=== PATIENT | male | born 1965 | race Caucasian/White ===

== ENCOUNTER → 2016-12-11 | Outpatient (CLI) | payer BC ==
[~2016-12-11] MED LIST: REGADENOSON 0.4 MG/5 ML SYRINGE IV ONE
--- NOTE | 2016-12-11 10:50 | EST ---
DATE OF SERVICE: 12/11/2016 AGE: 51Y SEX: M HT: 67" WT: 165 lbs. Protocol Freeman: Other: Lexiscan Cardiolite Stage: Dur. of Exercise: *Heart Rate Blood Pressure *Rest: 59 Rest: 110/83 * *Max. Achieved: 101 Maximum BP: 138/85 85% PMHR: 145 100% PMHR: 170 *METS: INDICATION OF THE STUDY: Chest pain. MEDICATIONS: Lopressor. STRESS DATA: Pretesting physical examination showed heart rate of 59, pressure is 110/83 mmHg. Baseline EKG shows sinus rhythm. 0.4 mg of Lexiscan was given to the patient over 15 seconds per protocol. The max heart rate was 101 beats per minute and maximum pressure was 138/85 mmHg. Clinically, the patient developed chest discomfort and shortness of breath. The EKG showed about a 0.[address] segment depression. CONCLUSION: 1. Nondiagnostic electrocardiogram stress test in response to Lexiscan. 2. Please follow up on the Cardiolite portion on a separate report from the radiology department.
--- NOTE | 2016-12-11 12:51 | NM ---
EXAMINATION TYPE: NM stress lexiscan cardiolite DATE OF EXAM: 12/11/2016 COMPARISON: NONE HISTORY: Shortness of breath and chest pain TECHNIQUE: After the intravenous administration of 10.19 mCi Tc 99m Sestamibi - Cardiolite resting S PECT images acquired 35 minutes post injection. The patient received 0.4mg Lexiscan, 27.3 mCi Tc 99m Sestamibi - Stress images obtained [address] injection FINDINGS: Review of stress and rest SPECT images demonstrates anterior and apical perfusion abnormality on stre ss images which shows more normal uptake on rest images. Gated analysis shows normal wall motion wit h an estimated left ventricular ejection fraction of 53 %. IMPRESSION: Pharmacologically induced left ventricular myocardial ischemia as described.
== END | disposition home or self-care (01) ==
LOC: RADNMMAIN 08:39
PROVIDERS: ATTEND Family Medicine
DX: I25.9 Chronic ischemic heart disease, unspecified (principal)
CPT/HCPCS: 93017; 78452; A9500; J2785

== ENCOUNTER 2016-12-13 12:02 | Inpatient (IN) | payer BC ==
[2016-12-13] MEDS ORDERED: NITROGLYCERIN OINT 1 INCH/GM PACKET TOPICAL STA (12:36)
[2016-12-13] MEDS ORDERED: HEPARIN SODIUM,PORCINE 5,000 UNIT/ML 1 ML VIAL IV ONE (12:39)
--- NOTE | 2016-12-13 12:39 | ED ---
General Adult HPI - General Chief complaint: Chest Pain Stated complaint: Arm Numbness Time Seen by Provider: 12/13/16 12:10 Source: patient, RN notes reviewed Mode of arrival: ambulatory Limitations: no limitations - History of Present Illness Initial comments: This is a 51-year-old male who comes in with past medical history significant for smoking and high cholesterol. Patient also states he has a strong family history of heart disease. Patient states he had a recent stress test for which she was positive and was told he had any more chest pain or problems to come to the emergency room to medially. Patient states today he started having some chest discomfort on the left side and pain radiating down his left arm. Patient denies any increasing shortness of breath. Patient states that he has had no diaphoresis or nausea. Patient denies any abdominal pain patient denies nausea vomiting diarrhea. Patient denies any recent fever chills or cough. Patient denies any lightheadedness dizziness or syncopal episode. - Related Data Home Medications Medication Instructions Recorded Confirmed Losartan Potassium [Losartan 100 mg PO DAILY 12/13/16 12/13/16 Potassium] Allergies Allergy/AdvReac Type Severity Reaction Status Date / Time No Known Allergies Allergy Verified 12/13/16 12:10 Review of Systems ROS Statement: Those systems with pertinent positive or pertinent negative responses have been documented in the HPI. ROS Other: All systems not noted in ROS Statement are negative. Past Medical History Past Medical History: Hyperlipidemia, Hypertension History of Any Multi-Drug Resistant Organisms: None Reported Past Surgical History: Hernia Repair Additional Past Surgical History / Comment(s): right thum fx reduction Past Psychological History: No Psychological Hx Reported Smoking Status: Current every day smoker Past Alcohol Use History: Rare Past Drug Use History: None Reported General Exam - General Exam Comments Initial Comments: GENERAL: Patient is well-developed and well-nourished. Patient is nontoxic and well- hydrated and is in mild distress. ENT: Neck is soft and supple. No significant lymphadenopathy is noted. Oropharynx is clear. Moist mucous membranes. Neck has full range of motion without eliciting any pain. EYES: The sclera were anicteric and conjunctiva were pink and moist. Extraocular movements were intact and pupils were equal round and reactive to light. Eyelids were unremarkable. PULMONARY: Unlabored respirations. Good breath sounds bilaterally. No audible rales rhonchi or wheezing was noted. CARDIOVASCULAR: There is a regular rate and rhythm without any murmurs gallops or rubs. ABDOMEN: Soft and nontender with normal bowel sounds. No palpable organomegaly was noted. There is no palpable pulsatile mass. SKIN: Skin is clear with no lesions or rashes and otherwise unremarkable. NEUROLOGIC: Patient is alert and oriented x3. Cranial nerves II through XII are grossly intact. Motor and sensory are also intact. Normal speech, volume and content. Symmetrical smile. MUSCULOSKELETAL: Normal extremities with adequate strength and full range of motion. No lower extremity swelling or edema. No calf tenderness. LYMPHATICS: No significant lymphadenopathy is noted PSYCHIATRIC: Normal psychiatric evaluation. Normal interpersonal interactions appears functionally intact in deals appropriately with others. No signs of depression. No signs of anxiety. Limitations: no limitations Course Vital Signs 12/13/16 12/13/16 12/13/16 12:06 13:03 13:46 Temperature 97.7 F Pulse Rate 81 72 78 Respiratory 18 16 16 Rate Blood Pressure 192/106 149/94 151/85 O2 Sat by Pulse 97 98 98 Oximetry Medical Decision Making - Medical Decision Making EKG shows normal sinus rhythm at 75 bpm MT interval is 142 QRS is 104 QT interval 388 QTC is 433. Recent EKG shows no ST segment elevation or depression or T-wave abdomen is noted. Patient had a positive stress test I started the patient on heparin about the patient for unstable angina. Spoke with Dr. Giraldo he agreed to admit the patient wrote admitting orders and consult cardiology and continue to have a Nitropaste and aspirin on the floor. - Lab Data Result diagrams: 12/13/16 13:00 12/13/16 13:00 Lab Results 12/13/16 12/13/16 12/13/16 Range/Units 13:00 13:00 13:00 WBC 7.4 (3.8-10.6) k/uL RBC 5.04 (4.30-5.90) m/uL Hgb 15.4 (13.0-17.5) gm/dL Hct 44.2 (39.0-53.0) % MCV 87.7 (80.0-100.0) fL MCH 30.6 (25.0-35.0) pg MCHC 34.9 (31.0-37.0) g/dL RDW 12.7 (11.5-15.5) % Plt Count 308 (150-450) k/uL Neutrophils % 60 % Lymphocytes % 30 % Monocytes % 5 % Eosinophils % 2 % Basophils % 0 % Neutrophils # 4.4 (1.3-7.7) k/uL Lymphocytes # 2.2 (1.0-4.8) k/uL Monocytes # 0.4 (0-1.0) k/uL Eosinophils # 0.2 (0-0.7) k/uL Basophils # 0.0 (0-0.2) k/uL PT (9.0-12.0) sec INR (<1.1) APTT (22.0-30.0) sec Sodium 139 (137-145) mmol/L Potassium 4.2 (3.5-5.1) mmol/L Chloride 106 (98-107) mmol/L Carbon Dioxide 26 (22-30) mmol/L Anion Gap 7 mmol/L BUN 12 (9-20) mg/dL Creatinine 0.74 (0.66-1.25) mg/dL Est GFR (MDRD) Af Amer >60 (>60 ml/min/1.73 sqM) Est GFR (MDRD) Non-Af >60 (>60 ml/min/1.73 sqM) Glucose 87 (74-99) mg/dL Calcium 9.4 (8.4-10.2) mg/dL Magnesium 2.2 (1.6-2.3) mg/dL Total Bilirubin 0.5 (0.2-1.3) mg/dL AST 23 (17-59) U/L ALT 30 (21-72) U/L Alkaline Phosphatase 87 (38-126) U/L Total Creatine Kinase 51 L (55-170) U/L CK-MB (CK-2) 0.3 (0.0-2.4) ng/mL CK-MB (CK-2) Rel Index 0.6 Troponin I <0.012 (0.000-0.034) ng/mL Total Protein 7.0 (6.3-8.2) g/dL Albumin 4.2 (3.5-5.0) g/dL 12/13/16 Range/Units 13:00 WBC (3.8-10.6) k/uL RBC (4.30-5.90) m/uL Hgb (13.0-17.5) gm/dL Hct (39.0-53.0) % MCV (80.0-100.0) fL MCH (25.0-35.0) pg MCHC (31.0-37.0) g/dL RDW (11.5-15.5) % Plt Count (150-450) k/uL Neutrophils % % Lymphocytes % % Monocytes % % Eosinophils % % Basophils % % Neutrophils # (1.3-7.7) k/uL Lymphocytes # (1.0-4.8) k/uL Monocytes # (0-1.0) k/uL Eosinophils # (0-0.7) k/uL Basophils # (0-0.2) k/uL PT 10.2 (9.0-12.0) sec INR 1.0 (<1.1) APTT 27.6 (22.0-30.0) sec Sodium (137-145) mmol/L Potassium (3.5-5.1) mmol/L Chloride (98-107) mmol/L Carbon Dioxide (22-30) mmol/L Anion Gap mmol/L BUN (9-20) mg/dL Creatinine (0.66-1.25) mg/dL Est GFR (MDRD) Af Amer (>60 ml/min/1.73 sqM) Est GFR (MDRD) Non-Af (>60 ml/min/1.73 sqM) Glucose (74-99) mg/dL Calcium (8.4-10.2) mg/dL Magnesium (1.6-2.3) mg/dL Total Bilirubin (0.2-1.3) mg/dL AST (17-59) U/L ALT (21-72) U/L Alkaline Phosphatase (38-126) U/L Total Creatine Kinase (55-170) U/L CK-MB (CK-2) (0.0-2.4) ng/mL CK-MB (CK-2) Rel Index Troponin I (0.000-0.034) ng/mL Total Protein (6.3-8.2) g/dL Albumin (3.5-5.0) g/dL Critical Care Time Critical Care Time: Yes Total Critical Care Time: 35 Disposition Clinical Impression: Unstable angina pectoris Disposition: ADMITTED IP TO THIS HOSP Referrals: Wesley Rivero DO [Primary Care Provider] - 1-2 days Time of Disposition: 15:03
[2016-12-13] MEDS: ASPIRIN 81 MG CHEW PO STA ×2 (12:53→12:55)
[2016-12-13] MEDS: HEPARIN SODIUM,PORCINE/D5W PMX 25,000 UNIT in DEXTROSE/WATER 1 500ML.BAG IV SCH (13:01)
--- NOTE | 2016-12-13 13:22 | XR ---
EXAMINATION TYPE: XR chest 2V DATE OF EXAM: 12/13/2016 COMPARISON: 04/03/14 HISTORY: Chest pain TECHNIQUE: Frontal and lateral views of the chest are obtained. FINDINGS: There is no focal air space opacity. No evidence for pnuemothorax.No pleural effusion. The cardiac silhouette size is within normal limits. The osseous structures are grossly intact. IMPRESSION: 1. No acute cardiopulmonary process.
[2016-12-13 13:28] LABS: Basophils % (A) 0 %; CH 31.3; CHCM 35.8; Eosinophils # (A) 0.2 k/uL (0-0.7); Eosinophils % (A) 2 %; HCT 44.2 % (39.0-53.0); HDW 2.57; HGB 15.4 gm/dL (13.0-17.5); Luc # (Auto) 0.27; Luc % (Auto) 4; Lymphocytes # (A) 2.2 k/uL (1.0-4.8); Lymphocytes % (A) 30 %; MCH 30.6 pg (25.0-35.0); MCHC 34.9 g/dL (31.0-37.0); MCV 87.7 fL (80.0-100.0); Monocytes # (A) 0.4 k/uL (0-1.0); Monocytes % (A) 5 %; Neutrophils # (A) 4.4 k/uL (1.3-7.7); Neutrophils % (A) 60 %; RBC 5.04 m/uL (4.30-5.90); RDW 12.7 % (11.5-15.5); WBC 7.4 k/uL (3.8-10.6); WBC (Perox) 7.93
[2016-12-13 13:29] LABS: ALT 30 U/L (21-72); AST 23 U/L (17-59); Alkaline Phosphatase 87 U/L (38-126); Anion Gap 7 mmol/L; Blood Urea Nitrogen 12 mg/dL (9-20); Calcium 9.4 mg/dL (8.4-10.2); Carbon Dioxide 26 mmol/L (22-30); Chloride 106 mmol/L (98-107); Glucose 87 mg/dL (74-99); Magnesium 2.2 mg/dL (1.6-2.3); Non-African American GFR(MDRD) >60 (>60 ml/min/1.73 sqM); Potassium 4.2 mmol/L (3.5-5.1); Sodium 139 mmol/L (137-145); Total Bilirubin 0.5 mg/dL (0.2-1.3)
[2016-12-13 13:31] LABS: Partial Thromboplastin Time 27.6 sec (22.0-30.0); Prothrombin Time 10.2 sec (9.0-12.0)
[2016-12-13 13:46] LABS: Creatine Kinase 51 U/L (55-170)
[2016-12-13 13:58] LABS: Creatine Kinase MB 0.3 ng/mL (0.0-2.4); Troponin I <0.012 ng/mL (0.000-0.034)
[2016-12-13] MEDS ORDERED: NITROGLYCERIN SL TABS 0.4 MG TAB SUBLINGUAL PRN (15:04)
[2016-12-13] MEDS ORDERED: ATORVASTATIN 40 MG TAB PO SCH (17:30)
[2016-12-13] MEDS: NITROGLYCERIN OINT 1 INCH/GM PACKET TOPICAL SCH (18:16)
[2016-12-13] MEDS ORDERED: ACETAMINOPHEN TAB 325 MG TAB PO PRN (19:39)
[2016-12-13 20:12] LABS: Creatine Kinase 40 U/L (55-170)
[2016-12-13 20:24] LABS: Creatine Kinase MB 0.2 ng/mL (0.0-2.4); Troponin I <0.012 ng/mL (0.000-0.034)
--- NOTE | 2016-12-13 22:37 | HP ---
DATE OF ADMISSION: 12/13/2016 REASON FOR ADMISSION: Chest pain. 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 Rivero who requested a stress test, which was done 12/11/2016. Patient was noted to have an anterior reversible ischemia on the nuclear part of the stress test. Patient was recommended to follow up with a track leader within a week; however, was told that if patient has recurrent complaining of chest pain to come into the emergency room. Patient apparently was walking, and noted to have midsternal chest pain radiating to his left arm, dull which was relieved on resting. Denied having any additional aggravating factors, including deep breathing or coughing. EKG in the emergency room did not reveal ST-T wave changes. Initial troponin was negative. The patient at the time of my evaluation, it is symptom-free. Denies having any headaches, blurry vision, nausea, vomiting, diarrhea, or urinary urgency or frequency. Fourteen-point review of systems was done; none pertinent other than was mentioned above. FAMILY HISTORY: Significant for cardiac disease before the age of 60. States that his mother of sudden cardiac disease at the age of 55. A past medical history includes hypertension and dyslipidemia. PAST SURGICAL HISTORY: Hernia repair. SOCIAL HISTORY: One pack ongoing tobacco use. Denies illicit drug use or significant alcohol use. PHYSICAL EXAMINATION: Vitals include temperature 97.7, heart rate 81, respiratory rate 18, blood pressure is between 149 to 192 systolic over 85 to 106 diastolic, saturating 96% on room air. GENERALLY: Patient appears to be alert, oriented x3. HEENT: The pupils are equal and reactive to light and accommodation. HEART: S1, S2 present. No murmur appreciated. LUNGS: Good air entry. No wheezing or rhonchi noted. ABDOMINAL EXAM: Soft, nontender, no organomegaly appreciated. GENITOURINARY: No Rincon in place. EXTREMITIES: Pulses can be palpated distally. Denies any tenderness on gross palpation. SKIN: On a gross skin exam does not appear to have any purpura or any skin rashes that were noted. NEUROLOGICALLY: Grossly cranial nerves 2-12 intact. No motor or sensory deficits noted. Laboratory data include hemoglobin 15.4, hematocrit 44.2, white count of 7.4, platelets of 308. Sodium 139, potassium 4.2, chloride 106, bicarb 26, BUN 12, creatinine 0.74. ASSESSMENT AND PLAN: 1. Chest pain, which appears to be reproducible on have some typical symptoms but the recent positive stress test. 2. Ongoing tobacco use. 3. Hypertension. 4. Dyslipidemia. Plan: Continue with heparin therapy per ACS protocol. Patient will be started on atorvastatin 40 mg. We will obtain a lipid panel tomorrow in the morning. We will have our track leader evaluate the patient. We will keep the patient n.p.o. for potential cardiac cath. This was discussed with the patient. Continue nitroglycerin p.r.n. Losartan will be restarted. Will follow.
[2016-12-14 01:26] LABS: Creatine Kinase 40 U/L (55-170)
[2016-12-14 01:39] LABS: Creatine Kinase MB 0.2 ng/mL (0.0-2.4); Troponin I <0.012 ng/mL (0.000-0.034)
[2016-12-14] MEDS: NITROGLYCERIN OINT 1 INCH/GM PACKET TOPICAL SCH ×2 (05:07→14:30)
[2016-12-14 06:07] LABS: Cholesterol 199 mg/dL (<200); HDL Cholesterol 33 mg/dL (40-60); Triglycerides 216 mg/dL (<150)
[2016-12-14] MEDS ORDERED: ALPRAZolam 0.25 MG TAB PO PRN (08:18)
[2016-12-14] MEDS ORDERED: ALPRAZolam 0.5 MG TAB PO PRN (08:18)
[2016-12-14] MEDS ORDERED: NITROGLYCERIN SL TABS 0.4 MG TAB SUBLINGUAL PRN ×2 (08:18→13:07)
[2016-12-14] MEDS ORDERED: ATORVASTATIN 80 MG TAB PO STA (08:18)
[2016-12-14] MEDS ORDERED: SODIUM CHLORIDE 0.9% 1,000 ML in EMPTY BAG 1 BAG IV ONE (08:18)
[2016-12-14] MEDS ORDERED: ASPIRIN 325 MG TAB PO STA (08:22)
[2016-12-14] MEDS ORDERED: ASPIRIN 325 MG TAB PO SCH (09:00)
--- NOTE | 2016-12-14 09:09 | CONS ---
DATE OF CONSULTATION: CHIEF COMPLAINT: Chest pain with abnormal stress test. This is a 51-year-old gentleman with history of hypertension, who presented to his primary care physician with symptoms of shortness of breath is primarily exertional in origin without paroxysmal nocturnal dyspnea or orthopnea or leg edema. He underwent a stress test that showed ischemia in LAD distribution on December 11. Yesterday he developed chest discomfort, but mostly left arm pain that was a sensation associated shortness of breath and some diaphoresis. He was concerned, came to the ER and got admitted. His EKG shows sinus rhythm and nonspecific ST-T wave changes. Three sets of cardiac enzymes have been negative. At the time of my evaluation, he is pain free and hemodynamically stable. Past medical history is significant for hypertension. Current medications include losartan 100 daily.. ALLERGIES: No known drug allergies. FAMILY HISTORY: Negative for premature coronary artery disease. Social history is significant for smoking. There is no history of ETOH abuse, or drug abuse. REVIEW OF SYSTEMS: HEENT: Unremarkable. CARDIAC: As described above. RESPIRATORY: Negative. GI: Negative. GENITOURINARY: Negative. Allergy/immunology: Negative. SKIN: Negative. MUSCULOSKELETAL: Negative. ENDOCRINE: Negative. HEMATOLOGICAL: Negative. DERMATOLOGICAL: Negative. CONSTITUTIONAL: Negative. Oncological: Negative. The rest of the system review is not relevant. FAMILY HISTORY: Significant for premature coronary artery disease. On exam, patient is comfortable at rest. Vital signs are stable. There is no jugular venous distention. Chest exam reveals good air entry bilaterally. Heart exam reveals first and second heart sounds. No gallop. No murmur, no rub. ABDOMEN: Soft, nontender. Exam of the extremities did not reveal edema. Peripheral pulses are felt. Labs show that the creatinine is normal. Three sets of tropes are negative. Hemoglobin is 15.4, platelet count is 308. ASSESSMENT: Unstable angina in a patient with known multiple coronary risk factors including hypertension smoking and strong family history of coronary artery disease with a recent abnormal stress test showing ischemia in LAD distribution. PLAN: I advised the patient to undergo cardiac catheterization to rule out significant obstructive disease and if there is a lesion, he will undergo angioplasty. If not, he will be discharged home and work aggressively on risk factor modification and in particular smoking cessation.
[2016-12-14] MEDS ORDERED: MIDAZOLAM 2 MG/2 ML VIAL ONE (11:27)
[2016-12-14] MEDS: MIDAZOLAM 2 MG/2 ML VIAL IVP ONE ×2 (11:34→12:16)
[2016-12-14] MEDS ORDERED: SODIUM CHLORIDE 0.9% 1,000 ML IV ONE (11:35)
[2016-12-14] MEDS ORDERED: LIDOCAINE 2% INJ 20 MG/ML SQ ONE (11:39)
[2016-12-14] MEDS ORDERED: HYDROmorphone 2 MG/ML 1 ML SYRINGE ONE (12:03)
[2016-12-14] MEDS ORDERED: BIVALIRUDIN BOLUS 250 MG/50 ML IV ONE (12:13)
[2016-12-14] MEDS ORDERED: BIVALIRUDIN 250 MG in SODIUM CHLORIDE 0.9% 50 ML IV ONE (12:14)
[2016-12-14] MEDS ORDERED: NITROGLYCERIN SL TABS 0.4 MG TAB SUBLINGUAL ONE ×2 (12:18→12:19)
--- NOTE | 2016-12-14 12:30 | CC ---
DATE OF SERVICE: INDICATION: Unstable angina. PROCEDURE NOTE: After obtaining informed consent, left heart catheterization and coronary angiogram are performed via the right femoral artery using standard Ora catheters. Patient tolerated the procedure well without any obvious immediate complications. We had to use a Glidewire to pass catheters across the iliac vessels because of extreme tortuosity. Total sedation time was 22 minutes. FINDINGS: 1. HEMODYNAMICS: Left ventricular end-diastolic pressure is 14 mm. There is no significant gradient across the aortic valve. 2. LEFT VENTRICULOGRAM: Left ventriculogram is not performed. 3. ANGIOGRAPHIC DATA: LEFT MAIN CORONARY ARTERY: Left main coronary artery is a normal size vessel and is free of stenosis. It divides into left anterior descending coronary artery and circumflex coronary artery. LAD shows a focal area of 95% stenosis in mid-LAD right at the origin of a small-caliber diagonal branch. Circumflex coronary artery shows a mild atherosclerotic plaque around 40% stenosis. Right coronary artery is a large dominant vessel that is very tortuous and in its midportion, has a focal area of 95% stenosis. CONCLUSION: Severe 2-vessel coronary artery disease as described above. PLAN: Patient will undergo angioplasty of LAD today and will bring him back and do angioplasty of right coronary artery probably on Friday.
[2016-12-14] MEDS ORDERED: HYDROmorphone 2 MG/ML 1 ML SYRINGE IVP ONE (12:33)
[2016-12-14] MEDS ORDERED: NITROGLYCERIN 1000MCG/10ML SYRINGE INTRACORON ONE (12:35)
--- NOTE | 2016-12-14 12:38 | ECHOF ---
Referral Reason:chest pain MEASUREMENTS -------- HEIGHT: 170.2 cm WEIGHT: 77.6 kg BP: 130/40 RVIDd: 2.8 cm (< 3.3) IVSd: 1.1 cm (0.6 - 1.1) LVIDd: 4.4 cm (3.9 - 5.3) LVPWd: 1.1 cm (0.6 - 1.1) IVSs: 1.5 cm LVIDs: 3.2 cm LVPWs: 1.4 cm LA Diam: 2.9 cm (2.7 - 3.8) Ao Diam: 2.9 cm (2.0 - 3.7) AV Cusp: 2.0 cm (1.5 - 2.6) LA Diam: 3.3 cm (2.7 - 3.8) MV EXCURSION: 19.089 mm (> 18.000) MV EF SLOPE: 62 mm/s (70 - 150) EPSS: 0.8 cm MV E Melvin: 0.60 m/s MV DecT: 231 ms MV A Melvin: 0.78 m/s MV E/A Ratio: 0.77 RAP: 5.00 mmHg RVSP: 12.99 mmHg FINDINGS -------- Sinus rhythm. This was a technically adequate study. LV size, wall thickness and systolic function are normal, with an EF greater than 55%. The right ventricle is normal in size. The left atrial size is normal. The right atrial size is normal. There is mild aortic valve sclerosis. There is no evidence of aortic regurgitation. Mild mitral annular calcification present. Mild mitral regurgitation is present. Mild tricuspid regurgitation present. There is no evidence of pulmonary hypertension. The right ventricular systolic pressure, as measured by Doppler, is 12.99mmHg. There is no pulmonic regurgitation present. The aortic root size is normal. There is no pericardial effusion. CONCLUSIONS -------- 1. LV size, wall thickness and systolic function are normal, with an EF greater than 55%. 2. There is mild aortic valve sclerosis. 3. Mild mitral annular calcification present. 4. Mild mitral regurgitation is present. 5. Mild tricuspid regurgitation present. 6. There is no evidence of pulmonary hypertension. 7. The right ventricular systolic pressure, as measured by Doppler, is 12.99mmHg. FORENSIC TOXICOLOGIST: Kristy Colmenares [facility]
[2016-12-14] MEDS ORDERED: niCARdipine 25 MG/10 ML VIAL ONE (12:40)
[2016-12-14] MEDS ORDERED: niCARdipine Syringe (1,000 mcg/10 mL) INTRAARTER ONE (12:43)
[2016-12-14] MEDS ORDERED: LIDOCAINE 2% INJ 20 MG/ML (20 ML MDV) ONE (12:47)
[2016-12-14] MEDS ORDERED: PRASUGREL 10 MG TAB ONE (12:49)
[2016-12-14] MEDS ORDERED: PRASUGREL 10 MG TAB PO ONE (12:51)
[2016-12-14] MEDS ORDERED: IOHEXOL 350 MG/ML 100 ML BOTTLE INJ ONE (12:52)
[2016-12-14] MEDS ORDERED: ZOLPIDEM 5 MG TAB PO PRN (13:07)
[2016-12-14] MEDS ORDERED: ATROPINE SULFATE 0.1 MG/ML 10ML SYRINGE IV PRN (13:07)
[2016-12-14] MEDS ORDERED: MAG HYDROX/AL HYDROX/SIMETH 30 ML CUP PO PRN (13:07)
[2016-12-14] MEDS ORDERED: RX INFO: IV CONTRAST WAS GIVEN 1 EACH MISC MISCELLANE PRN (13:07)
[2016-12-14] MEDS: LOSARTAN 50 MG TAB PO SCH (14:29)
[2016-12-14] MEDS: HEPARIN SODIUM,PORCINE/D5W PMX 25,000 UNIT in DEXTROSE/WATER 1 500ML.BAG IV SCH (14:30)
[2016-12-14] MEDS: METOPROLOL TARTRATE 25 MG TAB PO SCH (17:41)
[2016-12-14] MEDS: SODIUM CHLORIDE 0.9% 1,000 ML IV SCH (17:41)
--- NOTE | 2016-12-14 18:19 | P.PN ---
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 Rivero who requested a stress test, which was done 12/11/2016. Patient was noted to have an anterior reversible ischemia on the nuclear part of the stress test. Patient was recommended to follow up with a continuous mining machine lode miner within a week; however, was told that if patient has recurrent complaining of chest pain to come into the emergency room. Patient apparently was walking, and noted to have midsternal chest pain radiating to his left arm, dull which was relieved on resting. Denied having any additional aggravating factors, including deep breathing or coughing. EKG in the emergency room did not reveal ST-T wave changes. Initial troponin was negative. The patient at the time of my evaluation, it is symptom-free. 12/14/16 underwent cardiac cath currently symptom free Intervention to the LAD Denies having any headaches, blurry vision, nausea, vomiting, diarrhea, or urinary urgency or frequency. Fourteen-point review of systems was done; none pertinent other than was mentioned above. PHYSICAL EXAMINATION: Vitals include temperature 97.7, heart rate 81, respiratory rate 18, blood pressure is between 149 to 192 systolic over 85 to 106 diastolic, saturating 96% on room air. GENERALLY: Patient appears to be alert, oriented x3. HEENT: The pupils are equal and reactive to light and accommodation. HEART: S1, S2 present. No murmur appreciated. LUNGS: Good air entry. No wheezing or rhonchi noted. ABDOMINAL EXAM: Soft, nontender, no organomegaly appreciated. GENITOURINARY: No Rincon in place. EXTREMITIES: Pulses can be palpated distally. Denies any tenderness on gross palpation. SKIN: On a gross skin exam does not appear to have any purpura or any skin rashes that were noted. NEUROLOGICALLY: Grossly cranial nerves 2-12 intact. No motor or sensory deficits noted. Groin appropriately tender to palpation. Objective - Vital Signs Vital signs: Vital Signs Temp 98.3 F 12/14/16 08:00 Pulse 61 12/14/16 14:15 Resp 18 12/14/16 08:00 BP 114/79 12/14/16 14:15 Pulse Ox 96 12/14/16 14:15 Intake & Output 12/13/16 12/14/16 12/14/16 18:59 06:59 18:59 Intake Total 340.567 770.02 Output Total 450 0 Balance -450 340.567 770.02 Weight 77.7 kg Intake: IV 533.02 Intake, IV Titration 340.567 Amount Heparin Sodium,Porcine/ 340.567 D5w Pmx 25,000 unit In Dextrose/Water 1 500ml. bag @ 12 UNITS/KG/HR 17. 96 mls/hr IV .Q24H [facility] Rx #:[id number] Oral 237 Output: Urine 450 0 Other: Voiding Method Toilet # Voids 1 - Labs CBC & Chem 7: 12/13/16 13:00 12/13/16 13:00 Labs: Abnormal Lab Results - Last 24 Hours (Table) 12/13/16 12/14/16 12/14/16 Range/Units 19:33 00:12 05:19 APTT (22.0-30.0) sec Total Creatine Kinase 40 L 40 L (55-170) U/L Triglycerides 216 H (<150) mg/dL LDL Cholesterol, Calc 123 H (0-99) mg/dL HDL Cholesterol 33 L (40-60) mg/dL 12/14/16 Range/Units 05:19 APTT 36.2 H (22.0-30.0) sec Total Creatine Kinase (55-170) U/L Triglycerides (<150) mg/dL LDL Cholesterol, Calc (0-99) mg/dL HDL Cholesterol (40-60) mg/dL Assessment and Plan Plan: ASSESSMENT AND PLAN: 1. CAD s/[ PTCA to the LAD, planned staged intervention to the RCA in 3 weeks 2. Ongoing tobacco use. 3. Hypertension. 4. Dyslipidemia. Plan: Dual antiplatelet therapy Telemetry monitering Statin Vitals stable moniter overnight vascular checks
--- NOTE | 2016-12-14 23:15 | PTCA ---
DATE OF SERVICE: 12/14/2016. PROCEDURE: PTCA and stenting of a complex calcified proximal left anterior descending coronary artery. Performed by Dr. Monisha Dowell. Clinical information: Mr. Alvarez is a 51-year-old gentleman with a very strong family history of premature CAD, smoking and probable hyperlipidemia. He had a positive stress test and was evaluated by Dr. Blood who perform coronary angiography that revealed a 95% proximal LAD stenosis at a very acute angle heavily calcified involving a diagonal branch that was also highly diseased. Beyond this, the LAD had a mid lesion of about 40% to 50% with somewhat sluggish flow. RCA was a very dominant vessel, extremely tortuous and there was another 80% stenosis located in the midportion after several 90 degree bends. His circumflex had mild disease of about 50% or so mild to moderate 50% disease. He was advised intervention of the proximal LAD and a staged intervention of the RCA. Risks, benefits, options and rationale were explained. PROCEDURE NOTE: The existing 6 [place] introducer in the right femoral artery was used to perform the procedure. I used a standard left Ora guide catheter to cannulate the left coronary artery. 3.5 would have probably been a more suitable catheter. However, I used a BMW wire to cross the lesion. Predilatation was performed using an 8 mm long, 2.5 caliber Trek balloon. Two inflations were given. Subsequently I used a 2.75 caliber, 12 mm long, Promus drug-eluting stent and deployed this at 12 atmospheres. Patient had an excellent angiographic result. He had chest pain without significant EKG changes. He received Angiomax bolus and infusion as per protocol. He received 60 mg of Effient. The sheath was then taken out and a Perclose device used to secure hemostasis and he was sent to the room in stable condition. Excellent angiographic result without complication was achieved. Results were discussed with the patient and family. The patient received moderate conscious sedation for a total duration of one hour. He was given Dilaudid and Versed and Benadryl. Oxygen saturation was monitored closely.
--- NOTE | 2016-12-14 23:17 | LTR ---
December 14, 2016 RE: Kim Elpidio Dear Mr. Rivero: Thank you for the opportunity to participate in the care of Mr. Elpidio Alvarez. This gentleman presented with unstable angina, had a positive stress test. Cardiac cath by Dr. Blood revealed significant lesions in the proximal LAD and mid RCA. After some deliberation, discussing, options of revascularization both surgical and percutaneous, we proceeded with a PCI of proximal LAD. Excellent angiographic result was achieved and I will bring him back in 3 to 4 weeks for a staged intervention of the mid RCA. Right coronary artery is a more complex lesion extremely tortuous vessel with a several 90 degree angulations. Prognosis remains guarded. The patient has been counseled regarding the need to quit smoking and I also advised him regarding the goal of keeping LDL cholesterol under 70. Strict risk factor modification issues were discussed. Thank you for your referral. Please call for questions. With kind personal regards, Sincerely, DIANN MCBRIDE MD
[2016-12-15 04:39] VITALS: RESP 16
[2016-12-15] MEDS: SODIUM CHLORIDE 0.9% 1,000 ML IV SCH (04:39)
[2016-12-15 06:10] LABS: Basophils % (A) 0 %; CH 31.1; CHCM 34.3; Eosinophils # (A) 0.2 k/uL (0-0.7); Eosinophils % (A) 2 %; HCT 43.6 % (39.0-53.0); HDW 2.44; HGB 14.6 gm/dL (13.0-17.5); Luc # (Auto) 0.24; Luc % (Auto) 3; Lymphocytes % (A) 22 %; MCH 30.4 pg (25.0-35.0); MCHC 33.4 g/dL (31.0-37.0); Mean Platelet Volume 6.2; Monocytes # (A) 0.5 k/uL (0-1.0); Monocytes % (A) 6 %; Neutrophils # (A) 6.2 k/uL (1.3-7.7); Neutrophils % (A) 68 %; RBC 4.79 m/uL (4.30-5.90); RDW 12.9 % (11.5-15.5); WBC 9.2 k/uL (3.8-10.6); WBC (Perox) 9.98
[2016-12-15 06:21] LABS: Anion Gap 7 mmol/L; Blood Urea Nitrogen 11 mg/dL (9-20); Calcium 9.6 mg/dL (8.4-10.2); Carbon Dioxide 26 mmol/L (22-30); Chloride 107 mmol/L (98-107); Glucose 90 mg/dL (74-99); Non-African American GFR(MDRD) >60 (>60 ml/min/1.73 sqM); Potassium 4.1 mmol/L (3.5-5.1); Sodium 140 mmol/L (137-145)
[2016-12-15] MEDS: METOPROLOL TARTRATE 25 MG TAB PO SCH (08:32)
[2016-12-15] MEDS: LOSARTAN 50 MG TAB PO SCH (08:32)
[2016-12-15 08:36] VITALS: TEMP 97
[2016-12-15] MEDS ORDERED: ASPIRIN 81 MG CHEW PO SCH (09:00)
--- NOTE | 2016-12-15 10:40 | PN ---
Elpidio is a 51-year-old gentleman who is admitted to hospital with unstable angina and underwent cardiac catheterization and angioplasty of LAD. He has a lesion in the right coronary artery also. This is going to be tackled as outpatient. He is doing well and is free of symptoms this morning, ambulating, free of pain. Currently on: 1. Cozaar 100 mg daily. 2. Lopressor 25 mg daily. 3. Sublingual nitroglycerin on a p.r.n. basis. 4. Effient 10 mg daily. 5. Aspirin. 6. Lipitor 80 mg daily. On exam, comfortable at rest. Vital signs are stable. There is no jugular venous distention. Carotid upstroke is normal. There is no bruit. Chest exam reveals good air entry bilaterally. Heart exam reveals first and second heart sounds. No gallop. ABDOMEN: Soft. Exam of the extremities did not reveal any edema. Peripheral pulses are felt. Groin is free of bleeding, ( ) hematoma. Foot pulses are intact. ASSESSMENT: Unstable angina, status post catheterization and angioplasty of left anterior descending coronary artery, the lesion in the right coronary artery will be addressed down the road.
[2016-12-15] MEDS ORDERED: PRASUGREL 10 MG TAB PO SCH (12:00)
[2016-12-15 13:58] VITALS: BP 130/78; PULSE 56
--- NOTE | 2016-12-15 18:03 | P.DS ---
Providers Date of admission: 12/14/16 13:07 Attending physician: Quincy Corona MD Consults: 12/13/16 15:04 Consult Physician Urgent Consulting Provider: Cardiology Evelina Consult Reason/Comments: Unstable angina Do you want consulting provider notified?: Yes 12/14/16 13:07 Consult Physician Routine Consulting Provider: Cardiology Evelina Consult Reason/Comments: Post Interventional patient Do you want consulting provider notified?: Already Contacted [facility] Course: HISTORY OF PRESENT ILLNESS: This is a 51-year-old gentleman who is 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 Rivero who requested a stress test, which was done 12/11/2016. Patient was noted to have an anterior reversible ischemia on the nuclear part of the stress test. Patient was recommended to follow up with a embedded software developer within a week; however, was told that if patient has recurrent complaining of chest pain to come into the emergency room. Patient apparently was walking, and noted to have midsternal chest pain radiating to his left arm, dull which was relieved on resting. Denied having any additional aggravating factors, including deep breathing or coughing. EKG in the emergency room did not reveal ST-T wave changes. Initial troponin was negative. The patient at the time of my evaluation, it is symptom-free. 12/14/16 underwent cardiac cath currently symptom free Intervention to the LAD Denies having any headaches, blurry vision, nausea, vomiting, diarrhea, or urinary urgency or frequency. Fourteen-point review of systems was done; none pertinent other than was mentioned above. PHYSICAL EXAMINATION: Vitals include temperature 97.7, heart rate 81, respiratory rate 18, blood pressure is between 149 to 192 systolic over 85 to 106 diastolic, saturating 96% on room air. GENERALLY: Patient appears to be alert, oriented x3. HEENT: The pupils are equal and reactive to light and accommodation. HEART: S1, S2 present. No murmur appreciated. LUNGS: Good air entry. No wheezing or rhonchi noted. ABDOMINAL EXAM: Soft, nontender, no organomegaly appreciated. GENITOURINARY: No Rincon in place. EXTREMITIES: Pulses can be palpated distally. Denies any tenderness on gross palpation. SKIN: On a gross skin exam does not appear to have any purpura or any skin rashes that were noted. NEUROLOGICALLY: Grossly cranial nerves 2-12 intact. No motor or sensory deficits noted. Groin appropriately tender to palpation. ASSESSMENT AND PLAN: 1. CAD s/p PTCA to the LAD, planned staged intervention to the RCA in 3 weeks 2. Ongoing tobacco use. 3. Hypertension. 4. Dyslipidemia. Plan: Dual antiplatelet therapy with aspirin and effeint b fernando [facility] dc home activity restrictions discussed Plan - Discharge Summary New Discharge Prescriptions: New Aspirin 81 mg PO DAILY #30 Atorvastatin [Lipitor] 80 mg PO HS #30 tab Metoprolol Tartrate [Lopressor] 25 mg PO DAILY #30 tab Prasugrel [Effient] 10 mg PO DAILY #30 tab Continue Losartan Potassium 100 mg PO DAILY Discharge Medication List Losartan Potassium 100 mg PO DAILY 12/13/16 [History] Aspirin 81 mg PO DAILY #30 12/15/16 [Rx] Atorvastatin [Lipitor] 80 mg PO HS #30 tab 12/15/16 [Rx] Metoprolol Tartrate [Lopressor] 25 mg PO DAILY #30 tab 12/15/16 [Rx] Prasugrel [Effient] 10 mg PO DAILY #30 tab 12/15/16 [Rx] Follow up Appointment(s)/Referral(s): Wesley Rivero DO [Primary Care Provider] - 1-2 days Bennett Blood MD [STAFF PHYSICIAN] - 1 Week Patient Instructions/Handouts: *Surgery [facility] - After Heart Catheterization - Clinical Trial Leader Instructions Discharge Disposition: HOME SELF-CARE
[2016-12-15] MEDS ORDERED: ATORVASTATIN 80 MG TAB PO SCH (21:00)
== END 2016-12-15 14:34 | disposition home or self-care (01) | DRG 247 ==
LOC: EC 12:02 → 3OBS 15:05 → INTOOBSV 15:05 → 6SEL 12-14 13:01 → OBSVTOIN 12-14 13:07 → 6SEL 12-14 14:01
PROVIDERS: ADMIT Internal Medicine; ATTEND Internal Medicine
PROC: B2111ZZ Fluoroscopy of Multiple Coronary Arteries using Low Osmolar Contrast (ICD-10-PCS; principal; 2016-12-14 11:15)
PROC: 4A023N7 Measurement of Cardiac Sampling and Pressure, Left Heart, Percutaneous Approach (ICD-10-PCS; principal; 2016-12-14 11:15)
PROC: 027034Z Dilation of Coronary Artery, One Artery with Drug-eluting Intraluminal Device, Percutaneous Approach (ICD-10-PCS; 2016-12-14 11:15)
DX: I25.110 Atherosclerotic heart disease of native coronary artery with unstable angina pectoris (principal); I10 Essential (primary) hypertension; E78.5 Hyperlipidemia, unspecified; E78.00 Pure hypercholesterolemia, unspecified; F17.200 Nicotine dependence, unspecified, uncomplicated; Z79.899 Other long term (current) drug therapy; Z82.49 Family history of ischemic heart disease and other diseases of the circulatory system
CPT/HCPCS: 36415; 71020; 80048; 80053; 80061; 82550; 82553; 83735; 84484; 85025; 85610; 85730; 93005; 93306; 93458; 96365; 96366; 96376; 99291

== ENCOUNTER 2016-12-31 09:48 | Day surgery (SDC) | payer BC ==
[2016-12-26 15:38] VITALS: BMI 26.3
[~2016-12-31 09:48] MED LIST changes: +ALPRAZolam 0.25 MG TAB PO PRN; +ASPIRIN 325 MG TAB PO ONE; +NITROGLYCERIN SL TABS 0.4 MG TAB SUBLINGUAL PRN; -REGADENOSON 0.4 MG/5 ML SYRINGE IV ONE; +SODIUM CHLORIDE 0.9% 1,000 ML in EMPTY BAG 1 BAG IV ONE
[2016-12-31] MEDS ORDERED: MIDAZOLAM 2 MG/2 ML VIAL ONE (10:50)
[2016-12-31] MEDS ORDERED: LIDOCAINE 2% INJ 20 MG/ML (20 ML MDV) ONE (10:50)
[2016-12-31] MEDS ORDERED: diphenhydrAMINE 50 MG/ML 1 ML VIAL ONE (10:55)
[2016-12-31] MEDS ORDERED: diphenhydrAMINE 50 MG/ML 1 ML VIAL IVP ONE (11:05)
[2016-12-31] MEDS ORDERED: MIDAZOLAM 2 MG/2 ML VIAL IV ONE (11:05)
[2016-12-31] MEDS ORDERED: fentaNYL (PF) 50 MCG/ML 2 ML AMP ONE (11:06)
[2016-12-31] MEDS ORDERED: LIDOCAINE 2% INJ 20 MG/ML SQ ONE (11:08)
[2016-12-31] MEDS ORDERED: fentaNYL (PF) 50 MCG/ML 2 ML AMP IV ONE (11:10)
[2016-12-31] MEDS: NITROGLYCERIN 1000MCG/10ML SYRINGE INTRACORON ONE ×2 (11:12→11:37)
[2016-12-31] MEDS ORDERED: BIVALIRUDIN BOLUS 250 MG/50 ML IV ONE (11:23)
[2016-12-31] MEDS ORDERED: BIVALIRUDIN 250 MG in SODIUM CHLORIDE 0.9% 50 ML IV ONE (11:23)
[2016-12-31] MEDS ORDERED: PRASUGREL 10 MG TAB ONE (11:40)
[2016-12-31] MEDS ORDERED: PRASUGREL 10 MG TAB PO ONE (11:40)
[2016-12-31] MEDS ORDERED: HYDROmorphone 2 MG/ML 1 ML SYRINGE ONE (11:43)
[2016-12-31] MEDS ORDERED: HYDROmorphone 2 MG/ML 1 ML SYRINGE IV ONE (11:44)
[2016-12-31] MEDS ORDERED: MAG HYDROX/AL HYDROX/SIMETH 30 ML CUP PO PRN (12:00)
[2016-12-31] MEDS ORDERED: ZOLPIDEM 5 MG TAB PO PRN (12:00)
[2016-12-31] MEDS ORDERED: ATROPINE SULFATE 0.1 MG/ML 10ML SYRINGE IV PRN (12:00)
[2016-12-31] MEDS ORDERED: RX INFO: IV CONTRAST WAS GIVEN 1 EACH MISC MISCELLANE PRN (12:00)
[2016-12-31] MEDS ORDERED: NITROGLYCERIN SL TABS 0.4 MG TAB SUBLINGUAL PRN ×2 (12:00→12:05)
[2016-12-31] MEDS: SODIUM CHLORIDE 0.9% 1,000 ML IV SCH (16:09)
[2016-12-31] MEDS ORDERED: ACETAMINOPHEN TAB 325 MG TAB PO PRN (18:48)
--- NOTE | 2016-12-31 22:06 | PTCA ---
DATE OF SERVICE: 12/31/2016 PROCEDURE: Percutaneous transluminal coronary angioplasty and stenting of complex calcified tortuous mid right coronary artery. PERFORMED BY: Dr. Monisha Dowell. CLINICAL INFORMATION: Mr. Elpidio Alvarez is a 51-year-old gentleman with unstable angina who underwent stenting of proximal LAD performed by me on December 14. This patient sees Dr. Blood and has unstable angina and was brought in for a staged intervention. The risks, benefits, options and rationale were carefully explained to the patient. I indicated to him that the RCA lesion was very complex, calcified, tortuous, and the risk of intervention is high. PROCEDURE NOTE: Under local anesthesia and strict aseptic precautions, a 6 [place] introducer was placed in the left femoral artery. I used a standard left Ora diagnostic catheter to perform selective coronary angiography of the left system. I noted that the previously stented LAD was widely patent with some diffuse disease distal to that area. This was a large-distribution LAD that was calcified. The stented segment was widely patent. I then turned my attention to the RCA. A [facility] catheter was used to cannulate the RCA. I used a Whisper wire to cross the lesion. Wire was kept distally. Predilatation was performed using a 12 mm long, 3.0 caliber Trek balloon. I then advanced a 3.0 caliber, 12 mm long Xience stent and deployed this at 13 atmospheres. Patient had chest pain and inferior ST elevation. He received Angiomax and bolus as per protocol. He was already on aspirin and Plavix. Excellent angiographic result without complication was noted. The sheath was then taken out and I used a Perclose device to secure hemostasis. There was some oozing and FemoStop was applied. Patient was sent to the room in stable condition. Results were discussed with the patient and family. Excellent angiographic result without complication was achieved. Patient received moderate conscious sedation with a combination of Versed, fentanyl, Benadryl and Dilaudid. He was monitored very closely for his oxygenation. The moderate conscious sedation was provided for a total duration of 48 minutes.
--- NOTE | 2016-12-31 22:08 | LTR ---
December 31, 2016 RE: Elpidio Alvarez Dear Dr. Rivero, Thank you for the opportunity to participate in the care of Mr. Alvarez. I am pleased to report to you that he had an excellent angiographic result. I expect that he will be discharged tomorrow if he remains stable. Thank you for your referral. Please call with questions. Sincerely, DIANN MCBRIDE MD
[2017-01-01] MEDS: SODIUM CHLORIDE 0.9% 1,000 ML IV SCH (05:46)
[2017-01-01 07:05] LABS: Basophils % (A) 0 %; CH 31.2; CHCM 33.9; Eosinophils # (A) 0.4 k/uL (0-0.7); Eosinophils % (A) 5 %; HCT 42.3 % (39.0-53.0); HDW 2.48; HGB 13.7 gm/dL (13.0-17.5); Luc # (Auto) 0.12; Luc % (Auto) 2; Lymphocytes % (A) 14 %; MCH 29.9 pg (25.0-35.0); MCHC 32.3 g/dL (31.0-37.0); MCV 92.4 fL (80.0-100.0); Mean Platelet Volume 6.5; Monocytes # (A) 0.3 k/uL (0-1.0); Monocytes % (A) 5 %; Neutrophils # (A) 5.5 k/uL (1.3-7.7); Neutrophils % (A) 75 %; RBC 4.58 m/uL (4.30-5.90); RDW 13.1 % (11.5-15.5); WBC 7.4 k/uL (3.8-10.6); WBC (Perox) 7.56
[2017-01-01 07:27] LABS: Anion Gap 9 mmol/L; Blood Urea Nitrogen 11 mg/dL (9-20); Calcium 8.8 mg/dL (8.4-10.2); Carbon Dioxide 25 mmol/L (22-30); Chloride 107 mmol/L (98-107); Glucose 83 mg/dL (74-99); Non-African American GFR(MDRD) >60 (>60 ml/min/1.73 sqM); Potassium 4.3 mmol/L (3.5-5.1); Sodium 141 mmol/L (137-145)
[2017-01-01] MEDS ORDERED: METOPROLOL TARTRATE 25 MG TAB PO SCH (09:00)
[2017-01-01] MEDS ORDERED: ASPIRIN 81 MG CHEW PO SCH (09:00)
[2017-01-01] MEDS ORDERED: LOSARTAN 50 MG TAB PO SCH (09:00)
[2017-01-01] MEDS ORDERED: ATORVASTATIN 80 MG TAB PO SCH (09:00)
[2017-01-01] MEDS ORDERED: PRASUGREL 10 MG TAB PO SCH (09:00)
[2017-01-01 09:06] VITALS: BP 105/55; PULSE 82; RESP 18; TEMP 98.7
--- NOTE | 2017-01-02 10:38 | DS ---
DATE OF ADMISSION: 12/31/2016 DATE OF DISCHARGE: 01/01/2017 DIAGNOSES: 1. Unstable angina. 2. Hypertension. 3. Hypercholesterolemia. PROCEDURES PERFORMED: PTCA and stenting of complex tortuous calcified mid right coronary artery. Excellent result. Drug-eluting stent. This patient was brought in electively for a staged intervention of a very complex RCA. On December 14 he underwent stenting of a very proximal LAD with a good result. Coronary angiography revealed that the previously stented LAD was widely patent. I then performed stenting of mid RCA and a drug-eluting stent was deployed. Excellent angiographic result was achieved. His postprocedure course was unremarkable. His left groin is clean and dry with a good pulse. He has a very small hematoma. No bruit. Blood pressure 150/80, pulse rate is 70 per minute. EKG revealed sinus mechanism. No acute changes. Laboratory data is unremarkable. S1, S2 heard normally. Lungs are clear. Abdomen and lower extremity exam unchanged. Discharge instructions regarding activity, diet and medications were given. The patient will be discharged today and he will follow up with Dr. Blood on January 08 at 8:45 a.m. Discharge instructions were given.
== END 2017-01-01 10:49 | disposition home or self-care (01) ==
LOC: CATHCVL 09:48 → 6SEL 11:45 → CATHCVL 01-01 10:49
PROVIDERS: ATTEND Internal Medicine Interventional Cardiology
DX: I25.110 Atherosclerotic heart disease of native coronary artery with unstable angina pectoris (principal); I10 Essential (primary) hypertension; E78.00 Pure hypercholesterolemia, unspecified; E78.2 Mixed hyperlipidemia; Z82.49 Family history of ischemic heart disease and other diseases of the circulatory system; F17.210 Nicotine dependence, cigarettes, uncomplicated; Z79.82 Long term (current) use of aspirin; Z79.899 Other long term (current) drug therapy
CPT/HCPCS: 93454; 80048; 85025; 99152; 99153 ×2; C9600; C1769 ×3; C1887; C1725; C1894; C1874; C1760; J2001; J2250; J1170; J1200; J3010; J0583

== ENCOUNTER → 2017-01-07 | Outpatient (CLI) | payer BC ==
--- NOTE | 2017-01-07 10:24 | XR ---
Right shoulder HISTORY: Pain in proximal humerus, right shoulder pain, [id number] views of the right shoulder No comparisons Bone mineralization, joint spaces and alignment are maintained. Right lung apex as visualized is norm al. Distal acromion is downturned. IMPRESSION: No significant abnormality is evident. Correlate for possible impingement.
== END | disposition home or self-care (01) ==
LOC: RADXRYALE 09:39
PROVIDERS: ATTEND Family Medicine
DX: M25.511 Pain in right shoulder (principal)

== ENCOUNTER → 2018-03-11 | Outpatient (CLI) | payer BC ==
--- NOTE | 2018-03-11 14:18 | US ---
EXAMINATION TYPE: US kidneys/renal and bladder DATE OF EXAM: 03/11/2018 COMPARISON: NONE CLINICAL HISTORY: R94.4 abnormal kidney function. Abnormal kidney function. Aorta also scanned due to the order stating "us exam kidneys/bladder/aorta" EXAM MEASUREMENTS: Right Kidney: 11.4 x 4.9 x 5.4 cm Left Kidney: 9.8 x 4.6 x 4.2 cm Proximal Aorta: obscured by overlying bowel content Mid Aorta: 2.3 x 2.4cm Distal Aorta: 2.3 x 2.2cm Bifurcation: obscured by overlying bowel content Right Kidney: no evidence of hydronephrosis Left Kidney: no evidence of hydronephrosis Bladder: appears wnl . Sonolucent. Bilateral Jets seen: no Abdominal Aorta: proximal and bifurcation obscured by overlying bowel content, calcifications noted mid and distal. IMPRESSION: Visualized retroperitoneal ultrasound is unremarkable.
== END | disposition home or self-care (01) ==
LOC: RADUSWWP 07:18
PROVIDERS: ATTEND Family Medicine
DX: R94.4 Abnormal results of kidney function studies (principal)
CPT/HCPCS: 76770

== ENCOUNTER 2019-04-18 10:38 | Inpatient (IN) | payer BC ==
[2019-04-18] MEDS ORDERED: SODIUM CHLORIDE 0.9% 500 ML 500 ML IV STA (11:00)
[2019-04-18] MEDS ORDERED: NITROGLYCERIN-D5W PMX 50 MG in DEXTROSE/WATER 1 250ML.BAG IV ONE (11:01)
[2019-04-18] MEDS ORDERED: ACETAMINOPHEN TAB 500 MG TAB PO STA (11:01)
[2019-04-18] MEDS ORDERED: HEPARIN SODIUM,PORCINE 5,000 UNIT/ML 1 ML VIAL IV ONE (11:01)
[2019-04-18 11:16] LABS: Basophils # (A) 0.1 k/uL (0-0.2); Basophils % (A) 1 %; Eosinophils # (A) 0.2 k/uL (0-0.7); Eosinophils % (A) 2 %; HCT 43.8 % (39.0-53.0); HGB 14.2 gm/dL (13.0-17.5); Lymphocytes # (A) 1.7 k/uL (1.0-4.8); Lymphocytes % (A) 15 %; MCH 29.6 pg (25.0-35.0); MCHC 32.4 g/dL (31.0-37.0); MCV 91.5 fL (80.0-100.0); Mean Platelet Volume 6.8; Monocytes # (A) 0.7 k/uL (0-1.0); Monocytes % (A) 6 %; Neutrophils # (A) 8.2 k/uL (1.3-7.7); Neutrophils % (A) 74 %; Platelet Count 310 k/uL (150-450); RBC 4.79 m/uL (4.30-5.90); RDW 12.8 % (11.5-15.5)
[2019-04-18 11:25] LABS: INR 0.9 (<1.2); Partial Thromboplastin Time 29.2 sec (22.0-30.0); Prothrombin Time 9.9 sec (9.0-12.0)
--- NOTE | 2019-04-18 11:25 | ED ---
General Adult HPI - General Chief complaint: Chest Pain Stated complaint: chest pain Time Seen by Provider: 04/18/19 10:40 Source: patient, RN notes reviewed Mode of arrival: wheelchair Limitations: no limitations - History of Present Illness Initial comments: This a 54-year-old male presents emergency department with past medical history significant for coronary artery disease and stent placement. Patient has hypertension high cholesterol continues to smoke and has positive family history of heart disease. Patient comes in today because she's having chest pain center of his chest which radiated down his left arm earlier. Patient states the pain started 8:00 this morning. Patient states he took an aspirin and nitroglycerin and that did not change his pain. Patient states she's also short of breath and somewhat sweaty this morning. Patient denies any nausea patient denies any abdominal pain. Patient denies headache patient denies numbness weakness. Patient denies lightheadedness dizziness or near syncopal episode. Patient denies any swelling to legs or calf tenderness. - Related Data Home Medications Medication Instructions Recorded Confirmed Nitroglycerin Sl Tabs [Nitrostat] 0.4 mg SUBLINGUAL Q5M PRN 12/26/16 04/18/19 Atorvastatin [Lipitor] 80 mg PO HS 12/31/16 04/18/19 Cholecalciferol [Vitamin D3 (25 1,000 unit PO DAILY 04/18/19 04/18/19 Mcg = 1000 Iu)] amLODIPine BESYLATE 10 mg PO DAILY 04/18/19 04/18/19 Previous Rx's Medication Instructions Recorded Aspirin 81 mg PO DAILY #30 12/15/16 Metoprolol Tartrate [Lopressor] 25 mg PO DAILY #30 tab 12/15/16 Allergies Allergy/AdvReac Type Severity Reaction Status Date / Time No Known Allergies Allergy Verified 04/18/19 11:03 Review of Systems ROS Statement: Those systems with pertinent positive or pertinent negative responses have been documented in the HPI. ROS Other: All systems not noted in ROS Statement are negative. Past Medical History Past Medical History: Chest Pain / Angina, Hyperlipidemia, Hypertension Additional Past Medical History / Comment(s): Hx migraines History of Any Multi-Drug Resistant Organisms: None Reported Past Surgical History: Heart Catheterization With Stent, Hernia Repair Additional Past Surgical History / Comment(s): right thumb fx reduction Past Anesthesia/Blood Transfusion Reactions: No Reported Reaction Past Psychological History: No Psychological Hx Reported Smoking Status: Current every day smoker Past Alcohol Use History: Occasional Past Drug Use History: None Reported - Past Family History Mother Family Medical History: Hypertension Father Family Medical History: Coronary Artery Disease (CAD) Additional Family Medical History / Comment(s): triple vessel cabg General Exam - General Exam Comments Initial Comments: GENERAL: Patient is well-developed and well-nourished. Patient is nontoxic and well- hydrated and is in mild distress. ENT: Neck is soft and supple. No significant lymphadenopathy is noted. Oropharynx is clear. Moist mucous membranes. Neck has full range of motion without eliciting any pain. EYES: The sclera were anicteric and conjunctiva were pink and moist. Extraocular movements were intact and pupils were equal round and reactive to light. Eyelids were unremarkable. PULMONARY: Unlabored respirations. Good breath sounds bilaterally. No audible rales rh onchi or wheezing was noted. CARDIOVASCULAR: There is a regular rate and rhythm without any murmurs gallops or rubs. ABDOMEN: Soft and nontender with normal bowel sounds. No palpable organomegaly was noted. There is no palpable pulsatile mass. SKIN: Skin is clear with no lesions or rashes and otherwise unremarkable. NEUROLOGIC: Patient is alert and oriented x3. Cranial nerves II through XII are grossly intact. Motor and sensory are also intact. Normal speech, volume and content. Symmetrical smile. MUSCULOSKELETAL: Normal extremities with adequate strength and full range of motion. LYMPHATICS: No significant lymphadenopathy is noted PSYCHIATRIC: Normal psychiatric evaluation. Limitations: no limitations Course Vital Signs 04/18/19 10:40 Temperature 97.8 F Pulse Rate 76 Respiratory 18 Rate Blood Pressure 143/88 O2 Sat by Pulse 98 Oximetry Medical Decision Making - Medical Decision Making EKG shows normal sinus rhythm at 73 bpm OH interval 258 QRS is 96 Q-T intervals 42 QTC is 442. Patient's EKG shows no ST segment elevation or depression or T wave abnormalities are noted. I started the patient on nitroglycerin drip and it did help his pain. I started the patient on heparin because of his unstable angina picture. I spoke with Dr. Gonzales got admitted the patient I wrote admitting orders I consulted cardiology I continue the nitro drip heparin and aspirin on the floor. - Lab Data Result diagrams: 04/18/19 10:55 04/18/19 10:55 Lab Results 04/18/19 04/18/1919 Range/Units 10:55 10:55 10:55 WBC 11.0 H (3.8-10.6) k/uL RBC 4.79 (4.30-5.90) m/uL Hgb 14.2 (13.0-17.5) gm/dL Hct 43.8 (39.0-53.0) % MCV 91.5 (80.0-100.0) fL MCH 29.6 (25.0-35.0) pg MCHC 32.4 (31.0-37.0) g/dL RDW 12.8 (11.5-15.5) % Plt Count 310 (150-450) k/uL Neutrophils % 74 % Lymphocytes % 15 % Monocytes % 6 % Eosinophils % 2 % Basophils % 1 % Neutrophils # 8.2 H (1.3-7.7) k/uL Lymphocytes # 1.7 (1.0-4.8) k/uL Monocytes # 0.7 (0-1.0) k/uL Eosinophils # 0.2 (0-0.7) k/uL Basophils # 0.1 (0-0.2) k/uL PT 9.9 (9.0-12.0) sec INR 0.9 (<1.2) APTT 29.2 (22.0-30.0) sec Sodium 140 (137-145) mmol/L Potassium 4.1 (3.5-5.1) mmol/L Chloride 105 (98-107) mmol/L Carbon Dioxide 26 (22-30) mmol/L Anion Gap 9 mmol/L BUN 19 (9-20) mg/dL Creatinine 1.29 H (0.66-1.25) mg/dL Est GFR (CKD-EPI)AfAm 73 (>60 ml/min/1.73 sqM) Est GFR (CKD-EPI)NonAf 63 (>60 ml/min/1.73 sqM) Glucose 105 H (74-99) mg/dL Calcium 9.4 (8.4-10.2) mg/dL Magnesium 1.9 (1.6-2.3) mg/dL Total Bilirubin 0.5 (0.2-1.3) mg/dL AST 20 (17-59) U/L ALT 17 L (21-72) U/L Alkaline Phosphatase 80 (38-126) U/L Troponin I (0.000-0.034) ng/mL Total Protein 7.1 (6.3-8.2) g/dL Albumin 4.2 (3.5-5.0) g/dL 04/18/19 Range/Units 10:55 WBC (3.8-10.6) k/uL RBC (4.30-5.90) m/uL Hgb (13.0-17.5) gm/dL Hct (39.0-53.0) % MCV (80.0-100.0) fL MCH (25.0-35.0) pg MCHC (31.0-37.0) g/dL RDW (11.5-15.5) % Plt Count (150-450) k/uL Neutrophils % % Lymphocytes % % Monocytes % % Eosinophils % % Basophils % % Neutrophils # (1.3-7.7) k/uL Lymphocytes # (1.0-4.8) k/uL Monocytes # (0-1.0) k/uL Eosinophils # (0-0.7) k/uL Basophils # (0-0.2) k/uL PT (9.0-12.0) sec INR (<1.2) APTT (22.0-30.0) sec Sodium (137-145) mmol/L Potassium (3.5-5.1) mmol/L Chloride (98-107) mmol/L Carbon Dioxide (22-30) mmol/L Anion Gap mmol/L BUN (9-20) mg/dL Creatinine (0.66-1.25) mg/dL Est GFR (CKD-EPI)AfAm (>60 ml/min/1.73 sqM) Est GFR (CKD-EPI)NonAf (>60 ml/min/1.73 sqM) Glucose (74-99) mg/dL Calcium (8.4-10.2) mg/dL Magnesium (1.6-2.3) mg/dL Total Bilirubin (0.2-1.3) mg/dL AST (17-59) U/L ALT (21-72) U/L Alkaline Phosphatase (38-126) U/L Troponin I <0.012 (0.000-0.034) ng/mL Total Protein (6.3-8.2) g/dL Albumin (3.5-5.0) g/dL Critical Care Time Critical Care Time: Yes Total Critical Care Time: 35 Disposition Clinical Impression: Unstable angina pectoris Disposition: ADMITTED IP TO THIS HOSP Referrals: Wesley Rivero DO [Primary Care Provider] - 1-2 days Time of Disposition: 12:14
[2019-04-18 11:35] LABS: Albumin 4.2 g/dL (3.5-5.0); Calcium 9.4 mg/dL (8.4-10.2); Magnesium 1.9 mg/dL (1.6-2.3); Potassium 4.1 mmol/L (3.5-5.1); Total Bilirubin 0.5 mg/dL (0.2-1.3); Total Protein 7.1 g/dL (6.3-8.2)
[2019-04-18] MEDS: HEPARIN SOD,PORK IN 0.45% NACL 25,000 UNIT in 0.45% NACL 1 250ML.BAG IV SCH (11:35)
--- NOTE | 2019-04-18 11:50 | XR ---
EXAMINATION TYPE: XR chest 2V DATE OF EXAM: 04/18/2019 HISTORY: Chest Pain. REFERENCE: Previous study dated 12/13/2016. FINDINGS: The lungs are clear. Pleural space are clear. Heart size is within normal limits. IMPRESSION: NO ACUTE CARDIOTHORACIC ABNORMALITY.
[2019-04-18] MEDS ORDERED: NITROGLYCERIN SL TABS 0.4 MG TAB SUBLINGUAL PRN (12:14)
[2019-04-18 13:35] VITALS: BMI 26.6
[2019-04-18 14:25] LABS: Glucose,Whole Blood 109 mg/dL (75-99)
--- NOTE | 2019-04-18 14:34 | P.HPIM ---
History of Present Illness Patient is a pleasant 53-year-old gentleman with history of coronary artery disease and stents in the past about 3 years ago came in with complaints of chest pain today morning when he woke up pressure-like sensation moderate amount of chest pain lasted for a few hours didn't resolve with nitroglycerin nitroglycerin may be making made him lightheaded his pain is still a bit better now with IV nitro drip. Patient had similar pain when he was evaluated for cardiac cath and stent was placed urine at that time. Patient denied any diaphoresis, does have some shortness of breath nonpleuritic chest pain not associated with food. Pain radiates to the left arm. Patient had a stress test 6 months ago which apparently didn't show any inducible ischemia. Review of Systems REVIEW OF SYSTEMS: CONSTITUTIONAL: No fever, no malaise, no fatigue. HEENT: No recent visual problems or hearing problems. Denied any sore throat. CARDIOVASCULAR: No orthopnea, PND, no palpitations, no syncope. PULMONARY: no cough, no hemoptysis. GASTROINTESTINAL: No diarrhea, no nausea, no vomiting, no abdominal pain. NEUROLOGICAL: No headaches, no weakness, no numbness. HEMATOLOGICAL: Denies any bleeding or petechiae. GENITOURINARY: Denies any burning micturition, frequency, or urgency. MUSCULOSKELETAL/RHEUMATOLOGICAL: Denies any joint pain, swelling, or any muscle pain. ENDOCRINE: Denies any polyuria or polydipsia. The rest of the 14-point review of systems is negative. Past Medical History Past Medical History: Coronary Artery Disease (CAD), Chest Pain / Angina, Hyperlipidemia, Hypertension Additional Past Medical History / Comment(s): Hx migraines. states Elpidio sarmiento. when Elpidio had stent placed, he states told him he did not have a heart attack History of Any Multi-Drug Resistant Organisms: None Reported Past Surgical History: Heart Catheterization With Stent, Hernia Repair Additional Past Surgical History / Comment(s): right thumb fx reduction, left thumb was also fractured, did not require surgery. Stent placed to lad December 14, 2016 ([employer]) and rca December 31, 2016 ([facility])both by ROBYN Dowell, follows with Dr. Blood Past Anesthesia/Blood Transfusion Reactions: No Reported Reaction Date of Last Stent Placement:: December 2016 Smoking Status: Current every day smoker - Past Family History Mother Family Medical History: Hypertension Father Family Medical History: Coronary Artery Disease (CAD) Additional Family Medical History / Comment(s): triple vessel cabg and valve replacement, stents Brother(s) Family Medical History: Coronary Artery Disease (CAD) Additional Family Medical History / Comment(s): valve replacement Medications and Allergies Home Medications Medication Instructions Recorded Confirmed Type Aspirin 81 mg PO DAILY #30 12/15/16 04/18/19 Rx Metoprolol Tartrate [Lopressor] 25 mg PO DAILY #30 tab 12/15/16 04/18/19 Rx Nitroglycerin Sl Tabs [Nitrostat] 0.4 mg SUBLINGUAL Q5M PRN 12/26/16 04/18/19 History Atorvastatin [Lipitor] 80 mg PO HS 12/31/16 04/18/19 History Cholecalciferol [Vitamin D3 (25 1,000 unit PO DAILY 04/18/19 04/18/19 History Mcg = 1000 Iu)] amLODIPine BESYLATE 10 mg PO DAILY 04/18/19 04/18/19 History Allergies Allergy/AdvReac Type Severity Reaction Status Date / Time No Known Allergies Allergy Verified 04/18/19 11:03 Physical Exam Vitals: Vital Signs Temp Pulse Pulse Resp BP BP Pulse Ox 04/18/19 13:23 97.5 F L 64 18 119/76 96 04/18/19 13:16 97.5 F L 64 18 119/76 96 04/18/19 12:30 98.1 F 65 18 127/86 97 04/18/19 12:14 96 04/18/19 12:00 68 18 159/98 96 04/18/19 11:30 70 15 147/95 98 04/18/19 11:01 71 19 04/18/19 10:40 97.8 F 76 18 143/88 98 Intake and Output 04/17/19 04/18/19 04/18/19 22:59 06:59 14:59 Other: Weight 77.111 kg PHYSICAL EXAMINATION: GENERAL: The patient is alert and oriented x3, not in any acute distress. Well developed, well nourished. HEENT: Pupils are round and equally reacting to light. EOMI. No scleral icterus. No conjunctival pallor. Normocephalic, atraumatic. No pharyngeal erythema. No thyromegaly. CARDIOVASCULAR: S1 and S2 present. No murmurs, rubs, or gallops. PULMONARY: Chest is clear to auscultation, no wheezing or crackles. ABDOMEN: Soft, nontender, nondistended, normoactive bowel sounds. No palpable organomegaly. MUSCULOSKELETAL: No joint swelling or deformity. EXTREMITIES: No cyanosis, clubbing, or pedal edema. NEUROLOGICAL: Gross neurological examination did not reveal any focal deficits. SKIN: No rashes. Results CBC & Chem 7: 04/18/19 10:55 04/18/19 10:55 Labs: Abnormal Lab Results - Last 24 Hours (Table) 04/18/19 04/18/19 04/18/19 Range/Units 10:55 10:55 14:23 WBC 11.0 H (3.8-10.6) k/uL Neutrophils # 8.2 H (1.3-7.7) k/uL Creatinine 1.29 H (0.66-1.25) mg/dL Glucose 105 H (74-99) mg/dL POC Glucose (mg/dL) 109 H (75-99) mg/dL ALT 17 L (21-72) U/L Thrombosis Risk Factor Assmnt - Choose All That Apply Each Factor Represents 1 point: Age 41-60 years, Obesity (BMI >25) Thrombosis Risk Factor Assessment Total Risk Factor Score: 2 Thrombosis Risk Factor Assessment Level: Low Risk Assessment and Plan Plan: -Chest pain possibly of unstable angina, patient will be continued on IV nitroglycerin drip IV heparin cardiology was consulted with Dr. Blood sets of troponins and EKGs. -Continue nicotine use: Counseling was provided -Coronary artery disease -Hyperlipidemia -Hypertension For above-mentioned chronic medical problems patient will be resumed on appropriate home medications
[2019-04-18] MEDS ORDERED: HYDROmorphone 0.5 MG/0.5 ML SYRINGE IVP STA (18:40)
[2019-04-18] MEDS ORDERED: HYDROmorphone 0.5 MG/0.5 ML SYRINGE IVP PRN (21:08)
[2019-04-18] MEDS: METOPROLOL TARTRATE 25 MG TAB PO SCH (21:52)
[2019-04-18] MEDS: ATORVASTATIN 80 MG TAB PO SCH (21:52)
[2019-04-18] MEDS: ACETAMINOPHEN TAB 325 MG TAB PO PRN (21:53)
[2019-04-19 06:37] LABS: Cholesterol 144 mg/dL (<200); HDL Cholesterol 39 mg/dL (40-60); LDL Cholesterol,Calculated 86 mg/dL (0-99); Triglycerides 96 mg/dL (<150)
--- NOTE | 2019-04-19 08:16 | P.CRDCN ---
History of Present Illness Consult date: 04/19/19 Requesting physician: Alayna Ortiz Consult reason: chest pain Chief complaint: Chest pain History of present illness: This is a 54-year-old gentleman who follows [facility] Dr[facility]. He has known history of coronary artery disease with prior LAD stenting in December 2016 subsequent to that patient also underwent angioplasty and stenting of the right coronary artery later on that month. He does have history of hypertension and recently has had his medication adjusted because his blood pressure had been running high, history of hyperlipidemia, family history of premature coronary artery disease, and nicotine dependence. Patient states he still smokes one pack of cigarettes per day. He presents to the hospital on this admission with symptoms of midsternal chest discomfort which she describes as a severe pain that brought him to the hospital, he states he was quite stefanie phoretic. Pain worsens with taking a deep breath. Throughout the night last night, the patient was very diaphoretic, temperatures up greater than 101. Blood cultures have been sent. At the time of my examination this morning patient complains of aches in both of his arms and both of his legs, denies chest pain unless he takes a deep breath. Blood pressure on arrival here 142/88, heart rate in the 70s, 98% on room air. Blood pressure this morning 150/70 with a heart rate in the 90s, 94% on 2 L of oxygen. Temperature of 101 at 8:00 last night, and again at 10:00 last night, 100.6 at 4 AM, 97.8 this morning. White blood cell count 11.0, hemoglobin 14, platelet count 310. Sodium 140, potassium 4.1, BUN 19, creatinine 1.2. Troponins are negative 3. Lactic acid 1.0, magnesium 1.9. Cholesterol 144, LDL 86, triglycerides 96, and HDL 39. EKG shows a normal sinus rhythm with no acute changes. Chest x-ray does not reveal any acute cardiothoracic abnormality. Patient is currently on IV heparin and IV nitroglycerin drips. Past Medical History Past Medical History: Coronary Artery Disease (CAD), Chest Pain / Angina, Hyperlipidemia, Hypertension Additional Past Medical History / Comment(s): Hx migraines. states Elpidio snores. when Elpidio had stent placed, he states told him he did not have a heart attack History of Any Multi-Drug Resistant Organisms: None Reported Past Surgical History: Heart Catheterization With Stent, Hernia Repair Additional Past Surgical History / Comment(s): right thumb fx reduction, left thumb was also fractured, did not require surgery. Stent placed to lad December 14, 2016 ([employer]) and rca December 31, 2016 ([employer])both by ROBYN Dowell, follows with Dr. Blood Past Anesthesia/Blood Transfusion Reactions: No Reported Reaction Date of Last Stent Placement:: December 2016 Smoking Status: Current every day smoker - Past Family History Mother Family Medical History: Hypertension Father Family Medical History: Coronary Artery Disease (CAD) Additional Family Medical History / Comment(s): triple vessel cabg and valve replacement, stents Brother(s) Family Medical History: Coronary Artery Disease (CAD) Additional Family Medical History / Comment(s): valve replacement Medications and Allergies Home Medications Medication Instructions Recorded Confirmed Type Aspirin 81 mg PO DAILY #30 12/15/16 04/18/19 Rx Metoprolol Tartrate [Lopressor] 25 mg PO DAILY #30 tab 12/15/16 04/18/19 Rx Nitroglycerin Sl Tabs [Nitrostat] 0.4 mg SUBLINGUAL Q5M PRN 12/26/16 04/18/19 History Atorvastatin [Lipitor] 80 mg PO HS 12/31/16 04/18/19 History Cholecalciferol [Vitamin D3 (25 1,000 unit PO DAILY 04/18/19 04/18/19 History Mcg = 1000 Iu)] amLODIPine BESYLATE 10 mg PO DAILY 04/18/19 04/18/19 History Allergies Allergy/AdvReac Type Severity Reaction Status Date / Time No Known Allergies Allergy Verified 04/18/19 11:03 Physical Exam Vitals: Vital Signs Temp Pulse Pulse Pulse Resp BP BP 04/19/19 08:00 97.8 F 91 16 151/69 04/19/19 04:00 100.6 F H 88 18 151/81 04/19/19 00:00 99 F 89 18 133/69 04/18/19 21:54 101.1 F H 04/18/19 20:00 101 F H 92 92 18 158/91 04/18/19 16:00 98.0 F 72 18 143/77 04/18/19 13:23 97.5 F L 64 18 119/76 04/18/19 13:16 97.5 F L 64 18 119/76 04/18/19 12:30 98.1 F 65 18 127/86 04/18/19 12:14 04/18/19 12:00 68 18 159/98 04/18/19 11:30 70 15 147/95 04/18/19 11:01 71 19 04/18/19 10:40 97.8 F 76 18 143/88 Pulse Ox 04/19/19 08:00 94 L 04/19/19 04:00 94 L 04/19/19 00:00 96 04/18/19 21:54 04/18/19 20:00 95 04/18/19 16:00 96 04/18/19 13:23 96 04/18/19 13:16 96 04/18/19 12:30 97 04/18/19 12:14 96 04/18/19 12:00 96 04/18/19 11:30 98 04/18/19 11:01 04/18/19 10:40 98 Intake and Output 04/18/19 04/19/19 04/19/19 22:59 06:59 14:59 Intake Total 59.373 115.046 Output Total 400 Balance 59.373 -284.954 Intake: Intake, IV Titration 59.373 115.046 Amount Heparin Sod,Pork in 0.45% 59.373 115.046 NaCl 25,000 unit In 0.45 % NaCl 1 250ml.bag @ 12 UNITS/KG/HR 9.253 mls/hr IV .Q24H [facility] Rx#: [id number] Output: Urine 400 Other: Voiding Method Toilet # Voids 1 0 Weight 76.3 kg PHYSICAL EXAMINATION: GENERAL: 54-year-old gentleman in no acute distress at the time of my examination HEENT: Head is atraumatic, normocephalic. Pupils equal, round. Sclera anicteric. Conjunctiva are clear. Mucous membranes of the mouth are moist. Neck is supple. There is no elevated jugular venous pressure. No carotid bruit is heard. HEART EXAMINATION: Heart S1, S2 normal. No murmur or gallop heard. CHEST EXAMINATION: Lungs are clear to auscultation and precussion. Positive chest wall tenderness is noted . ABDOMEN: Soft, nontender. Bowel sounds are heard. No organomegaly noted. EXTREMITIES: 2+ peripheral pulses with no evidence of peripheral edema and no calf tenderness noted. NEUROLOGIC patient is awake, alert and oriented 3 . . Results 04/19/19 05:47 04/19/19 05:47 Cardiac Enzymes 04/18/19 04/18/19 04/18/19 Range/Units 10:55 10:55 10:55 WBC 11.0 H (3.8-10.6) k/uL RBC 4.79 (4.30-5.90) m/uL Hgb 14.2 (13.0-17.5) gm/dL Hct 43.8 (39.0-53.0) % MCV 91.5 (80.0-100.0) fL MCH 29.6 (25.0-35.0) pg MCHC 32.4 (31.0-37.0) g/dL RDW 12.8 (11.5-15.5) % Plt Count 310 (150-450) k/uL Neutrophils % 74 % Lymphocytes % 15 % Monocytes % 6 % Eosinophils % 2 % Basophils % 1 % Neutrophils # 8.2 H (1.3-7.7) k/uL Lymphocytes # 1.7 (1.0-4.8) k/uL Monocytes # 0.7 (0-1.0) k/uL Eosinophils # 0.2 (0-0.7) k/uL Basophils # 0.1 (0-0.2) k/uL PT 9.9 (9.0-12.0) sec INR 0.9 (<1.2) APTT 29.2 (22.0-30.0) sec Sodium 140 (137-145) mmol/L Potassium 4.1 (3.5-5.1) mmol/L Chloride 105 (98-107) mmol/L Carbon Dioxide 26 (22-30) mmol/L Anion Gap 9 mmol/L BUN 19 (9-20) mg/dL Creatinine 1.29 H (0.66-1.25) mg/dL Est GFR (CKD-EPI)AfAm 73 (>60 ml/min/1.73 sqM) Est GFR (CKD-EPI)NonAf 63 (>60 ml/min/1.73 sqM) Glucose 105 H (74-99) mg/dL POC Glucose (mg/dL) (75-99) mg/dL POC Glu Associate Trainer ID Plasma Lactic Acid Gaurav (0.7-2.0) mmol/L Calcium 9.4 (8.4-10.2) mg/dL Magnesium 1.9 (1.6-2.3) mg/dL Total Bilirubin 0.5 (0.2-1.3) mg/dL AST 20 (17-59) U/L ALT 17 L (21-72) U/L Alkaline Phosphatase 80 (38-126) U/L Troponin I (0.000-0.034) ng/mL Total Protein 7.1 (6.3-8.2) g/dL Albumin 4.2 (3.5-5.0) g/dL Triglycerides (<150) mg/dL Cholesterol (<200) mg/dL LDL Cholesterol, Calc (0-99) mg/dL HDL Cholesterol (40-60) mg/dL 04/18/19 04/18/19 04/18/19 Range/Units 10:55 14:23 17:10 WBC (3.8-10.6) k/uL RBC (4.30-5.90) m/uL Hgb (13.0-17.5) gm/dL Hct (39.0-53.0) % MCV (80.0-100.0) fL MCH (25.0-35.0) pg MCHC (31.0-37.0) g/dL RDW (11.5-15.5) % Plt Count (150-450) k/uL Neutrophils % % Lymphocytes % % Monocytes % % Eosinophils % % Basophils % % Neutrophils # (1.3-7.7) k/uL Lymphocytes # (1.0-4.8) k/uL Monocytes # (0-1.0) k/uL Eosinophils # (0-0.7) k/uL Basophils # (0-0.2) k/uL PT (9.0-12.0) sec INR (<1.2) APTT (22.0-30.0) sec Sodium (137-145) mmol/L Potassium (3.5-5.1) mmol/L Chloride (98-107) mmol/L Carbon Dioxide (22-30) mmol/L Anion Gap mmol/L BUN (9-20) mg/dL Creatinine (0.66-1.25) mg/dL Est GFR (CKD-EPI)AfAm (>60 ml/min/1.73 sqM) Est GFR (CKD-EPI)NonAf (>60 ml/min/1.73 sqM) Glucose (74-99) mg/dL POC Glucose (mg/dL) 109 H (75-99) mg/dL POC Glu Associate Trainer ID Brandon Moreland Plasma Lactic Acid Gaurav (0.7-2.0) mmol/L Calcium (8.4-10.2) mg/dL Magnesium (1.6-2.3) mg/dL Total Bilirubin (0.2-1.3) mg/dL AST (17-59) U/L ALT (21-72) U/L Alkaline Phosphatase (38-126) U/L Troponin I <0.012 <0.012 (0.000-0.034) ng/mL Total Protein (6.3-8.2) g/dL Albumin (3.5-5.0) g/dL Triglycerides (<150) mg/dL Cholesterol (<200) mg/dL LDL Cholesterol, Calc (0-99) mg/dL HDL Cholesterol (40-60) mg/dL 04/18/19 04/18/19 04/18/19 Range/Units 17:10 20:11 21:22 WBC (3.8-10.6) k/uL RBC (4.30-5.90) m/uL Hgb (13.0-17.5) gm/dL Hct (39.0-53.0) % MCV (80.0-100.0) fL MCH (25.0-35.0) pg MCHC (31.0-37.0) g/dL RDW (11.5-15.5) % Plt Count (150-450) k/uL Neutrophils % % Lymphocytes % % Monocytes % % Eosinophils % % Basophils % % Neutrophils # (1.3-7.7) k/uL Lymphocytes # (1.0-4.8) k/uL Monocytes # (0-1.0) k/uL Eosinophils # (0-0.7) k/uL Basophils # (0-0.2) k/uL PT (9.0-12.0) sec INR (<1.2) APTT 54.1 H (22.0-30.0) sec Sodium (137-145) mmol/L Potassium (3.5-5.1) mmol/L Chloride (98-107) mmol/L Carbon Dioxide (22-30) mmol/L Anion Gap mmol/L BUN (9-20) mg/dL Creatinine (0.66-1.25) mg/dL Est GFR (CKD-EPI)AfAm (>60 ml/min/1.73 sqM) Est GFR (CKD-EPI)NonAf (>60 ml/min/1.73 sqM) Glucose (74-99) mg/dL POC Glucose (mg/dL) (75-99) mg/dL POC Glu Associate Trainer ID Plasma Lactic Acid Gaurav 1.0 (0.7-2.0) mmol/L Calcium (8.4-10.2) mg/dL Magnesium (1.6-2.3) mg/dL Total Bilirubin (0.2-1.3) mg/dL AST (17-59) U/L ALT (21-72) U/L Alkaline Phosphatase (38-126) U/L Troponin I <0.012 (0.000-0.034) ng/mL Total Protein (6.3-8.2) g/dL Albumin (3.5-5.0) g/dL Triglycerides (<150) mg/dL Cholesterol (<200) mg/dL LDL Cholesterol, Calc (0-99) mg/dL HDL Cholesterol (40-60) mg/dL 04/19/19 04/19/19 04/19/19 Range/Units 05:47 05:47 05:47 WBC (3.8-10.6) k/uL RBC (4.30-5.90) m/uL Hgb (13.0-17.5) gm/dL Hct (39.0-53.0) % MCV (80.0-100.0) fL MCH (25.0-35.0) pg MCHC (31.0-37.0) g/dL RDW (11.5-15.5) % Plt Count (150-450) k/uL Neutrophils % % Lymphocytes % % Monocytes % % Eosinophils % % Basophils % % Neutrophils # (1.3-7.7) k/uL Lymphocytes # (1.0-4.8) k/uL Monocytes # (0-1.0) k/uL Eosinophils # (0-0.7) k/uL Basophils # (0-0.2) k/uL PT (9.0-12.0) sec INR (<1.2) APTT 40.1 H (22.0-30.0) sec Sodium (137-145) mmol/L Potassium (3.5-5.1) mmol/L Chloride (98-107) mmol/L Carbon Dioxide (22-30) mmol/L Anion Gap mmol/L BUN (9-20) mg/dL Creatinine (0.66-1.25) mg/dL Est GFR (CKD-EPI)AfAm (>60 ml/min/1.73 sqM) Est GFR (CKD-EPI)NonAf (>60 ml/min/1.73 sqM) Glucose (74-99) mg/dL POC Glucose (mg/dL) (75-99) mg/dL POC Glu Associate Trainer ID Plasma Lactic Acid Gaurav (0.7-2.0) mmol/L Calcium (8.4-10.2) mg/dL Magnesium (1.6-2.3) mg/dL Total Bilirubin (0.2-1.3) mg/dL AST (17-59) U/L ALT (21-72) U/L Alkaline Phosphatase (38-126) U/L Troponin I <0.012 (0.000-0.034) ng/mL Total Protein (6.3-8.2) g/dL Albumin (3.5-5.0) g/dL Triglycerides 96 (<150) mg/dL Cholesterol 144 (<200) mg/dL LDL Cholesterol, Calc 86 (0-99) mg/dL HDL Cholesterol 39 L (40-60) mg/dL Coagulation 04/18/19 04/18/19 04/19/19 Range/Units 10:55 17:10 05:47 PT 9.9 (9.0-12.0) sec APTT 29.2 54.1 H 40.1 H (22.0-30.0) sec Lipids 04/19/19 Range/Units 05:47 Triglycerides 96 (<150) mg/dL Cholesterol 144 (<200) mg/dL HDL Cholesterol 39 L (40-60) mg/dL CBC 04/18/19 Range/Units 10:55 WBC 11.0 H (3.8-10.6) k/uL RBC 4.79 (4.30-5.90) m/uL Hgb 14.2 (13.0-17.5) gm/dL Hct 43.8 (39.0-53.0) % Plt Count 310 (150-450) k/uL Comprehensive Metabolic Panel 04/18/19 Range/Units 10:55 Sodium 140 (137-145) mmol/L Potassium 4.1 (3.5-5.1) mmol/L Chloride 105 (98-107) mmol/L Carbon Dioxide 26 (22-30) mmol/L BUN 19 (9-20) mg/dL Creatinine 1.29 H (0.66-1.25) mg/dL Glucose 105 H (74-99) mg/dL Calcium 9.4 (8.4-10.2) mg/dL AST 20 (17-59) U/L ALT 17 L (21-72) U/L Alkaline Phosphatase 80 (38-126) U/L Total Protein 7.1 (6.3-8.2) g/dL Albumin 4.2 (3.5-5.0) g/dL Current Medications Generic Name Dose Route Start Last Admin Trade Name Freq PRN Reason Stop Dose Admin Acetaminophen 650 mg 04/18/19 21:06 04/18/19 21:53 Tylenol Tab PO 650 mg Q4HR PRN Administration Fever and/ or Pain Aspirin 325 mg 04/19/19 09:00 Aspirin PO DAILY [facility] Atorvastatin Calcium 80 mg 04/18/19 21:00 04/18/19 21:52 Lipitor PO 80 mg HS [facility]LIN Administration Hydromorphone HCl 0.5 mg 04/18/19 21:08 04/19/19 04:27 Dilaudid IVP 0.5 mg Q4HR PRN Administration Pain Nitroglycerin/Dextrose 50 mg/ 250 mls @ 3 mls/hr 04/18/19 11:01 04/18/19 11:34 IV Solution IV 04/19/19 11:00 10 mcg/min .Q24H ONE 3 mls/hr Administration Protocol 10 MCG/MIN Heparin Sodium/Sodium Chloride 250 mls @ 9.253 mls/hr 04/18/19 11:15 04/19/19 06:26 25,000 unit/ Sodium Chloride IV 14 units/kg/hr .Q24H [facility] 10.796 mls/hr Titration Protocol 12 UNITS/KG/HR Metoprolol Tartrate 25 mg 04/18/19 21:00 04/18/19 21:52 Lopressor PO 25 mg BID MAYLIN Administration Nitroglycerin 0.4 mg 04/18/19 12:14 Nitrostat SUBLINGUAL Q5M PRN Chest Pain Intake and Output 04/18/19 04/19/19 04/19/19 22:59 06:59 14:59 Intake Total 59.373 115.046 Output Total 400 Balance 59.373 -284.954 Intake: Intake, IV Titration 59.373 115.046 Amount Heparin Sod,Pork in 0.45% 59.373 115.046 NaCl 25,000 unit In 0.45 % NaCl 1 250ml.bag @ 12 UNITS/KG/HR 9.253 mls/hr IV .Q24H [facility] Rx#: [id number] Output: Urine 400 Other: Voiding Method Toilet # Voids 1 0 Weight 76.3 kg 04/18/19 10:55 04/18/19 10:55 EKG Interpretations (text) EKG shows normal sinus rhythm with no acute changes. Assessment and Plan Plan: Assessment and plan #1 chest pain, atypical for acute coronary syndrome, pleuritic in nature. Troponins are negative 3. EKG shows normal sinus rhythm with no acute changes. #2 known history of coronary artery disease with prior LAD and RCA stenting in 2017 #3 hypertension #4 hyperlipidemia #5 family history of premature coronary artery disease #6 fever of greater than 101 #7 nicotine dependence Plan Patient's clinical picture likely suggesting viral syndrome. We will repeat an echocardiogram with Doppler study. We will also obtain an influenza screen. Obtain a sed rate. Decrease aspirin to 81 mg daily. Discontinue nitroglycerin drip. Further recommendations to follow. DNP note has been reviewed, I agree with a documented findings and plan of care. Patient was seen and examined.
[2019-04-19] MEDS: ASPIRIN 325 MG TAB PO SCH (09:09)
[2019-04-19] MEDS: METOPROLOL TARTRATE 25 MG TAB PO SCH ×2 (09:09→20:18)
[2019-04-19 11:05] LABS: Calcium 8.6 mg/dL (8.4-10.2); Potassium 4.1 mmol/L (3.5-5.1)
--- NOTE | 2019-04-19 11:07 | ECHOF ---
Referral Reason:chest pain MEASUREMENTS -------- HEIGHT: 170.2 cm WEIGHT: 76.2 kg BP: 151/69 RVIDd: 3.1 cm (< 3.3) IVSd: 1.3 cm (0.6 - 1.1) LVIDd: 4.0 cm (3.9 - 5.3) LVPWd: 1.2 cm (0.6 - 1.1) IVSs: 1.8 cm LVIDs: 2.7 cm LVPWs: 1.5 cm LA Diam: 3.4 cm (2.7 - 3.8) LAESV Index (A-L): 19.61 ml/m Ao Diam: 3.2 cm (2.0 - 3.7) AV Cusp: 1.9 cm (1.5 - 2.6) MV EXCURSION: 14.273 mm (> 18.000) MV EF SLOPE: 74 mm/s (70 - 150) EPSS: 0.4 cm MV E Melvin: 1.09 m/s MV DecT: 166 ms MV A Melvin: 0.88 m/s MV E/A Ratio: 1.23 TAPSE: 19.78 mm FINDINGS -------- Sinus rhythm. This was a technically good study. The left ventricular size is normal. There is mild concentric left ventricular hypertrophy. Overa ll left ventricular systolic function is normal with, an EF between 60 - 65 %. The diastolic fillin g pattern is normal for the age of the patient 14.20. The right ventricle is mildly enlarged. Normal LA size by volume 22+/-6 ml/m2. The right atrium is normal in size. Interatrial and interventricular septum intact. The aortic valve is trileaflet and appears structurally normal. The mitral valve is normal. The tricuspid valve appears structurally normal. Trace/mild (physiologic) pulmonic regurgitation. The aortic root size is normal. Normal inferior vena cava with normal inspiratory collapse consistent with estimated right atrial pre ssure of 5 mmHg. There is no pericardial effusion. CONCLUSIONS -------- 1. Sinus rhythm. 2. This was a technically good study. 3. The left ventricular size is normal. 4. There is mild concentric left ventricular hypertrophy. 5. Overall left ventricular systolic function is normal with, an EF between 60 - 65 %. 6. The diastolic filling pattern is normal for the age of the patient 14.20 7. The right ventricle is mildly enlarged. 8. Normal LA size by volume 22+/-6 ml/m2. 9. The right atrium is normal in size. 10. Interatrial and interventricular septum intact. 11. The aortic valve is trileaflet and appears structurally normal. 12. The mitral valve is normal. 13. The tricuspid valve appears structurally normal. 14. Trace/mild (physiologic) pulmonic regurgitation. 15. The aortic root size is normal. 16. Normal inferior vena cava with normal inspiratory collapse consistent with estimated right atrial pressure of 5 mmHg. 17. There is no pericardial effusion. NEUROLOGICAL SURGEON: Penny Meyer RDCS
[2019-04-19 11:16] LABS: Basophils # (A) 0.1 k/uL (0-0.2); Basophils % (A) 1 %; Eosinophils % (A) 0 %; HCT 40.3 % (39.0-53.0); HGB 12.7 gm/dL (13.0-17.5); Lymphocytes # (A) 1.5 k/uL (1.0-4.8); Lymphocytes % (A) 10 %; MCH 29.5 pg (25.0-35.0); MCHC 31.5 g/dL (31.0-37.0); MCV 93.8 fL (80.0-100.0); Mean Platelet Volume 7.7; Monocytes # (A) 0.8 k/uL (0-1.0); Monocytes % (A) 6 %; Neutrophils # (A) 12.1 k/uL (1.3-7.7); Neutrophils % (A) 82 %; Platelet Count 287 k/uL (150-450); RBC 4.29 m/uL (4.30-5.90); RDW 12.9 % (11.5-15.5); WBC 14.8 k/uL (3.8-10.6)
[2019-04-19 11:20] LABS: C Reactive Protein 122.7 mg/L (<10.0)
--- NOTE | 2019-04-19 15:21 | P.PN ---
Subjective Progress Note Date: 04/19/19 Principal diagnosis: Patient is a pleasant 53-year-old gentleman with history of coronary artery disease and stents in the past about 3 years ago and came in with complaints of chest pain today. This morning when he woke up he had a pressure-like sensation with moderate amount of chest pain that lasted for a few hours and didn't resolve with nitroglycerin. nitroglycerin may be making made him lightheaded. his pain is still a bit better now with IV nitro drip. Patient had similar pain when he was evaluated for cardiac cath and stent was placed at that time. Patient denied any diaphoresis, does have some shortness of breath and nonpleuritic chest pain not associated with food. Pain radiates to the left arm. Patient had a stress test 6 months ago which apparently didn't show any inducible ischemia. 04/19/2019 Patient is sitting up in bed in no acute distress. Patient had a low-grade fever last night into this morning and is being closely monitored. Patient sp es any recent sick contacts. Patient denies any cough or cold symptoms and states he had a coworker that was sick about a week ago with a cold. Patient is currently on oxygen at 2 L via nasal cannula as he was having some shortness of breath and also for comfort. Patient is still having some mild chest pain in the substernal area but states it has improved from yesterday when he felt like he had heavy pressure sitting directly on his chest. Patient is currently getting an echo at the bedside. Will await report. Patient was on a nitro drip and has been discontinued by cardiology. Patient remains on IV heparin drip at this time. Patient states he does have some bilateral lower leg pain that feels like cramps that started last night as well. Objective - Vital Signs Vital signs: Vital Signs Temp 97.8 F 04/19/19 08:00 Pulse 78 04/19/19 12:00 Resp 16 04/19/19 12:00 BP 139/75 04/19/19 12:00 Pulse Ox 95 04/19/19 12:00 Intake & Output 04/18/19 04/19/19 04/19/19 18:59 06:59 18:59 Intake Total 59.373 483.555 5501 Output Total 400 200 Balance 59.373 -284.954 800 Weight 77.111 kg 76.3 kg Intake: Intake, IV Titration 59.373 115.046 Amount Heparin Sod,Pork in 0.45% 59.373 115.046 NaCl 25,000 unit In 0.45 % NaCl 1 250ml.bag @ 12 UNITS/KG/HR 9.253 mls/hr IV .Q24H [facility] Rx#: [id number] Oral 1000 Output: Urine 400 200 Other: Voiding Method Toilet Toilet # Voids 0 - Exam GENERAL: The patient is alert and oriented x3, not in any acute distress. Well developed, well nourished. HEENT: Pupils are round and equally reacting to light. EOMI. No scleral icterus. No conjunctival pallor. Normocephalic, atraumatic. No pharyngeal erythema. No thyromegaly. CARDIOVASCULAR: S1 and S2 present. No murmurs, rubs, or gallops. PULMONARY: Chest is clear to auscultation, no wheezing or crackles. ABDOMEN: Soft, nontender, nondistended, normoactive bowel sounds. No palpable organomegaly. MUSCULOSKELETAL: No joint swelling or deformity. EXTREMITIES: No cyanosis, clubbing, or pedal edema. NEUROLOGICAL: Gross neurological examination did not reveal any focal deficits. SKIN: No rashes. Multiple scabs and abrasions noted to bilateral lower extremities - Labs CBC & Chem 7: 04/19/19 05:47 04/19/19 05:47 Labs: Abnormal Lab Results - Last 24 Hours (Table) 04/18/19 04/19/19 04/19/19 Range/Units 17:10 05:47 05:47 WBC (3.8-10.6) k/uL RBC (4.30-5.90) m/uL Hgb (13.0-17.5) gm/dL Neutrophils # (1.3-7.7) k/uL ESR (0-15) mm/hr APTT 54.1 H 40.1 H (22.0-30.0) sec Sodium (137-145) mmol/L Creatinine (0.66-1.25) mg/dL Glucose (74-99) mg/dL C-Reactive Protein (<10.0) mg/L HDL Cholesterol 39 L (40-60) mg/dL 04/19/19 04/19/19 04/19/19 Range/Units 05:47 05:47 05:47 WBC 14.8 H (3.8-10.6) k/uL RBC 4.29 L (4.30-5.90) m/uL Hgb 12.7 L (13.0-17.5) gm/dL Neutrophils # 12.1 H (1.3-7.7) k/uL ESR 39 H (0-15) mm/hr APTT (22.0-30.0) sec Sodium 135 L (137-145) mmol/L Creatinine 1.30 H (0.66-1.25) mg/dL Glucose 119 H (74-99) mg/dL C-Reactive Protein 122.7 H (<10.0) mg/L HDL Cholesterol (40-60) mg/dL Assessment and Plan Assessment: -Chest pain possibly of unstable angina, patient will be continued IV heparin. Cardiology is following. Troponins are negative -Continue nicotine use: Counseling was provided -Coronary artery disease -Hyperlipidemia -Hypertension -Fever of unknown etiology; will obtain urinalysis, blood cultures pending, influenza testing is negative -Acute renal failure, possible prerenal azotemia, possibly due to intravascular depletion Recommendations and discussion: Continue current medications, management, and symptomatic treatment. Patient was undergoing an echo at the bedside and will await report. Cardiology is following. Possible discontinuation of the IV heparin today. Will continue to monitor vital signs and labs closely. Guarded prognosis. Further recommendations to follow.
[2019-04-19] MEDS: HEPARIN SOD,PORK IN 0.45% NACL 25,000 UNIT in 0.45% NACL 1 250ML.BAG IV SCH (17:19)
[2019-04-19 19:51] LABS: Appearance,Urine Clear (Clear); Bilirubin,Urine Negative (Negative); Blood,Urine Trace (Negative); Color,Urine Light Yellow; Glucose,Urine (UA) Negative (Negative); Ketones,Urine Negative (Negative); Leukocyte Esterase,Urine Negative (Negative); Nitrite,Urine Negative (Negative); Protein,Urine Negative (Negative); RBC,Urine 4 /hpf (0-5); Specific Gravity,Urine 1.008 (1.001-1.035); Squamous Epithelial Cell,Urine 1 /hpf (0-4); Urobilinogen,Urine <2.0 mg/dL (<2.0)
[2019-04-19] MEDS: ATORVASTATIN 80 MG TAB PO SCH (20:18)
[2019-04-19] MEDS: ACETAMINOPHEN TAB 325 MG TAB PO PRN (20:19)
[2019-04-19 22:48] VITALS: RESP 18
[2019-04-20 10:19] LABS: Basophils % (A) 0 %; Eosinophils # (A) 0.2 k/uL (0-0.7); Eosinophils % (A) 2 %; HCT 40.4 % (39.0-53.0); HGB 13.6 gm/dL (13.0-17.5); Lymphocytes # (A) 1.6 k/uL (1.0-4.8); Lymphocytes % (A) 15 %; MCH 30.4 pg (25.0-35.0); MCHC 33.6 g/dL (31.0-37.0); MCV 90.5 fL (80.0-100.0); Mean Platelet Volume 5.7; Monocytes # (A) 0.5 k/uL (0-1.0); Monocytes % (A) 5 %; Neutrophils # (A) 7.8 k/uL (1.3-7.7); Neutrophils % (A) 76 %; Platelet Count 272 k/uL (150-450); RBC 4.47 m/uL (4.30-5.90); RDW 12.9 % (11.5-15.5); WBC 10.3 k/uL (3.8-10.6)
[2019-04-20 10:40] LABS: Calcium 8.9 mg/dL (8.4-10.2); Potassium 4.2 mmol/L (3.5-5.1)
[2019-04-20] MEDS: ASPIRIN 325 MG TAB PO SCH (10:47)
[2019-04-20] MEDS: METOPROLOL TARTRATE 25 MG TAB PO SCH (10:47)
[2019-04-20 12:56] VITALS: TEMP 98.6
[2019-04-20 12:57] VITALS: BP 145/89; PULSE 72
--- NOTE | 2019-04-20 19:05 | P.DS ---
Providers Date of admission: 04/20/19 10:30 Expected date of discharge: 04/20/19 Attending physician: Alayna Ortiz MD Consults: 04/18/19 12:14 Consult Physician Urgent Consulting Provider: [facility] Consult Reason/Comments: Unstable angina Do you want consulting provider notified?: Yes Primary care physician: Wesley Diaz [facility] Course: Final Diagnosis Chest pain possible unstable angina Coronary artery disease Hypertension Continued ongoing nicotine dependence Hyperlipidemia Acute renal failure, possible prerenal azotemia, possibly due to intravascular depletion Discharge disposition: Patient is being discharged in a stable condition with guarded prognosis to home and will follow up with Dr. Diaz upon discharge. Patient will also be following up with cardiology Dr. Blood in the outpatient setting in one week. Total time taken is 35 minutes. History of present illness This is a 54 year old man that was recently admitted with chest pain and was being monitored closely. Cardiology was following closely. Patient was on a nitro drip as well as heparin drip per cardiology recommendations given his cardiac history. Patient is up at the side of the bed in no acute distress today and states he feels much better and would like to go home today. Patient denies any chest pain, shortness of breath, or palpitations at this time. Patient is a febrile. Patient denies any nausea or vomiting and has been tolerating diet. Patient had a few episodes of fever in the 99-101 range of unknown etiology. Influenza testing was negative, blood and urine cultures were negative, and chest xray was negative. Patient is afebrile today. Patient encouraged to drink more water as he states that he hasn't been. Discussed with the patient at length about smoking cessation. Patient will need repeat labs upon discharge as his creatinine was slightly elevated during hospitalization. Currently patients condition is stable with much improvement and able for discharge today. Guarded prognosis. On exam vital signs are stable. Blood pressure is 145/89, pulse is 72, temp is 98.6 F, 02 is 97% on room air, and respirations are 18. Cardio S1 and S2 are m uffled. Respiratory system shows mild expiratory wheezing. Abdomen is soft and non-tender, nervous system shows no focal deficits and gait is steady. Please refer to the medication reconciliation sheet for a list of medications. Patient Condition at Discharge: Stable Plan - Discharge Summary Discharge Rx Participant: No New Discharge Prescriptions: New Metoprolol Tartrate [Lopressor] 25 mg PO BID 30 Days #60 tab Continue Aspirin 81 mg PO DAILY #30 Nitroglycerin Sl Tabs [Nitrostat] 0.4 mg SUBLINGUAL Q5M PRN PRN Reason: Chest Pain Atorvastatin [Lipitor] 80 mg PO HS amLODIPine BESYLATE 10 mg PO DAILY Cholecalciferol [Vitamin D3 (25 Mcg = 1000 Iu)] 1,000 unit PO DAILY Discontinued Metoprolol Tartrate [Lopressor] 25 mg PO DAILY #30 tab Discharge Medication List Aspirin 81 mg PO DAILY #30 12/15/16 [Rx] Nitroglycerin Sl Tabs [Nitrostat] 0.4 mg SUBLINGUAL Q5M PRN 12/26/16 [History] Atorvastatin [Lipitor] 80 mg PO HS 12/31/16 [History] Cholecalciferol [Vitamin D3 (25 Mcg = 1000 Iu)] 1,000 unit PO DAILY 04/18/19 [History] amLODIPine BESYLATE 10 mg PO DAILY 04/18/19 [History] Metoprolol Tartrate [Lopressor] 25 mg PO BID 30 Days #60 tab 04/20/19 [Rx] Follow up Appointment(s)/Referral(s): Wesley Diaz DO [Primary Care Provider] - 04/26/19 10:20 am Bennett Blood MD [Family Provider] - 04/30/19 10:30 am Ambulatory/Diagnostic Orders: Basic Metabolic Panel [LAB.AMB] Time Frame: 3 Days, Location: None Selected Patient Instructions/Handouts: Chest Pain (DC), Heart Healthy Diet (DC) Activity/Diet/Wound Care/Special Instructions: Activity limited until follow up continue current diet Encouraged patient to drink more water repeat labs in 2-3 days follow up with primary care provided as scheduled follow up with cardiology as scheduled Discharge Disposition: HOME SELF-CARE
== END 2019-04-20 13:35 | disposition home or self-care (01) | DRG 303 ==
LOC: EC 10:38 → 3SCARD 12:14 → OBSVTOIN 04-20 10:30
PROVIDERS: ADMIT Internal Medicine; ATTEND Internal Medicine
DX: I25.110 Atherosclerotic heart disease of native coronary artery with unstable angina pectoris (principal); N17.9 Acute kidney failure, unspecified; E78.00 Pure hypercholesterolemia, unspecified; E78.5 Hyperlipidemia, unspecified; F17.210 Nicotine dependence, cigarettes, uncomplicated; I10 Essential (primary) hypertension; G43.909 Migraine, unspecified, not intractable, without status migrainosus; M79.661 Pain in right lower leg; M79.662 Pain in left lower leg; R50.9 Fever, unspecified; Z79.82 Long term (current) use of aspirin; Z79.899 Other long term (current) drug therapy; Z95.5 Presence of coronary angioplasty implant and graft; Z82.49 Family history of ischemic heart disease and other diseases of the circulatory system; Z71.6 Tobacco abuse counseling
CPT/HCPCS: 36415; 71046; 80048; 80053; 80061; 81001; 83605; 83735; 84484; 85025; 85610; 85652; 85730; 86140; 87040; 87502; 93005; 93306; 96365; 96368; 96376; 99291

== ENCOUNTER → 2020-09-04 | Outpatient (CLI) | payer BC ==
--- NOTE | 2020-09-04 15:19 | XR ---
Left hip HISTORY: Left hip pain for 1 month 2 views of the left hip Bone mineralization, joint spaces and alignment are maintained. No fracture or dislocation. There are vascular calcifications noted incidentally. Minimal marginal spurring suspected on the frog-leg view . IMPRESSION: No acute abnormality. Suspect osteoarthritic change.
== END | disposition home or self-care (01) ==
LOC: RADXRYALE 10:14
PROVIDERS: ATTEND Family Medicine
DX: M25.552 Pain in left hip (principal)
CPT/HCPCS: 73502

== ENCOUNTER 2021-07-03 08:10 | Inpatient (IN) | payer BC ==
[2021-07-03 08:27] VITALS: TEMP 98.3
[2021-07-03] MEDS ORDERED: ASPIRIN 81 MG PO STA (08:38)
[2021-07-03] MEDS ORDERED: ONDANSETRON 4 MG/2 ML VIAL IVP STA (08:38)
[2021-07-03] MEDS ORDERED: diphenhydrAMINE 50 MG/ML 1 ML VIAL IVP STA (08:38)
[2021-07-03] MEDS ORDERED: FAMOTIDINE 20 MG/2 ML VIAL IV STA (08:39)
[2021-07-03] MEDS ORDERED: SODIUM CHLORIDE 0.9% 1,000 ML IV ONE (08:40)
[2021-07-03] MEDS ORDERED: LABETALOL 5 MG/ML VIAL MDV IVP STA ×2 (08:41→17:41)
--- NOTE | 2021-07-03 08:54 | ED ---
General Adult HPI - General Chief complaint: Chest Pain Stated complaint: Vomiting Time Seen by Provider: 07/03/21 08:31 Source: patient, RN notes reviewed, old records reviewed Mode of arrival: ambulatory Limitations: no limitations - History of Present Illness Initial comments: Patient is a 56-year-old male with past medical history remarkable for CAD with 2 stents, poorly controlled hypertension presents emergency Department complaining of nausea and vomiting times one day. He then awoke this morning and described some substernal and left-sided chest pain with no radiation. He states this is been intermittent and this morning. It is typical when his blood pressures not under control. Was unable to take his normal blood pressure medication secondary to nausea and vomiting. Describes emesis is nonbilious and nonbloody. Denies any abdominal pain. Denies any known sick contacts. His no fevers, chills. His no difficulty in breathing. Denies any history of blood clots. Denies any lower extremity edema. States he was vaccinated for COVID-19 and received booster. His no other acute complaints at this time. Patient presents over concern for poorly controlled hypertension, nausea, vomiting. Patient also has chest pain secondary to his uncontrolled hypertension. - Related Data Home Medications Medication Instructions Recorded Confirmed Atorvastatin [Lipitor] 80 mg PO HS 12/31/16 07/03/21 Cholecalciferol [Vitamin D3 (25 50 mcg PO DAILY 07/03/21 07/03/21 Mcg = 1000 Iu)] Losartan Potassium [Cozaar] 50 mg PO DAILY 07/03/21 07/03/21 Metoprolol Tartrate [Lopressor] 50 mg PO BID 07/03/21 07/03/21 cloNIDine HCL [Catapres] 0.3 mg PO TID 07/03/21 07/03/21 hydroCHLOROthiazide 25 mg PO DAILY 07/03/21 07/03/21 Previous Rx's Medication Instructions Recorded Aspirin 81 mg PO DAILY #30 12/15/16 Allergies Allergy/AdvReac Type Severity Reaction Status Date / Time amlodipine Allergy Swelling Verified 07/03/21 10:09 hydralazine Allergy Rash/Hives Verified 07/03/21 10:09 Review of Systems ROS Statement: Those systems with pertinent positive or pertinent negative responses have been documented in the HPI. Review of Systems: CONST: Denies fever EYES: Denies blurry vision ENT: Denies nasal congestion C/V: Endorses chest pain RESP: Denies shortness of breath GI: Endorses nausea and vomiting : Denies dysuria SKIN: Denies rash. MSK: Denies joint pain. NEURO: Denies headache ROS Other: All systems not noted in ROS Statement are negative. Past Medical History Past Medical History: Coronary Artery Disease (CAD), Chest Pain / Angina, Hyperlipidemia, Hypertension Additional Past Medical History / Comment(s): Hx migraines. states Elpidio snores. when Elpidio had stent placed, he states told him he did not have a heart attack History of Any Multi-Drug Resistant Organisms: None Reported Past Surgical History: Heart Catheterization With Stent, Hernia Repair Additional Past Surgical History / Comment(s): right thumb fx reduction, left thumb was also fractured, did not require surgery. Stent placed to lad December 14, 2016 ([employer]) and rca December 31, 2016 ([employer])both by ROBYN Dowell, follows with Dr. Blood Past Anesthesia/Blood Transfusion Reactions: No Reported Reaction Date of Last Stent Placement:: December 2016 Past Psychological History: No Psychological Hx Reported Smoking Status: Current every day smoker Past Alcohol Use History: Occasional Past Drug Use History: None Reported - Past Family History Mother Family Medical History: Hypertension Father Family Medical History: Coronary Artery Disease (CAD) Additional Family Medical History / Comment(s): triple vessel cabg and valve replacement, stents Brother(s) Family Medical History: Coronary Artery Disease (CAD) Additional Family Medical History / Comment(s): valve replacement General Exam - General Exam Comments Initial Comments: General: Appears in no acute distress. HEAD: Normal with no signs of head trauma. EYES: PERRLA, EOMI, conjunctiva normal, no discharge. ENT: Hearing grossly intact, normal oropharynx. RESPIRATORY: Clear breath sounds bilaterally. No wheezes, rales, or rhonchi. C/V: Regular rate and rhythm. S1 and S2 auscultated, no edema, peripheral pulses 2+ and intact throughout ABD: Abd is soft, nontender, nondistended EXT: Normal range of motion, no obvious deformity SKIN: No rashes or lesions observed on exposed skin. NEURO: Alert and oriented 4. No focal sensory strength deficits. Limitations: no limitations Course Vital Signs 07/03/21 07/03/21 07/03/21 08:23 09:15 09:37 Temperature 98.3 F Pulse Rate 95 67 65 Respiratory 18 18 18 Rate Blood Pressure 251/129 242/120 229/123 O2 Sat by Pulse 96 99 98 Oximetry 07/03/21 07/03/21 07/03/21 10:10 11:35 12:00 Temperature Pulse Rate 67 74 63 Respiratory 18 18 16 Rate Blood Pressure 231/115 197/115 200/106 O2 Sat by Pulse 100 99 98 Oximetry 07/03/21 07/03/21 07/03/21 13:39 14:00 14:30 Temperature Pulse Rate 81 62 61 Respiratory 18 18 16 Rate Blood Pressure 178/110 221/115 211/113 O2 Sat by Pulse 98 97 96 Oximetry 07/03/21 15:00 Temperature Pulse Rate 61 Respiratory 16 Rate Blood Pressure 199/107 O2 Sat by Pulse 98 Oximetry Medical Decision Making - Medical Decision Making Based on the patient's presentation and physical exam, I'm concerned for hypertensive urgency/emergency secondary to noncompliance with his medications which is secondary to acute nausea and vomiting. He has no other acute complaints at this time. We will obtain a cardiac workup in addition to abdominal laboratory studies. Patient will be given a 1 L fluid bolus, by mouth aspirin, IV Benadryl, Pepcid, labetalol, Zofran. He'll be assessed for improvement in his blood pressure following labetalol. There were in agreement this plan. He'll be given a dose of his home oral medications as soon as possible. His chest x-ray shows no acute cardio pulmonary process. EKG shows no acute ischemic changes. Laboratory studies are remarkable for mild leukocytosis of 16.5. Troponin is elevated to 0.048. Patient is an AK I with a creatinine of 1.86. Patient is mildly hypomagnesemic a 1.5 which was replenished. Covid is negative. On reevaluation, I did discuss with patient I would like to admit him to the hospital. Labetalol 2 did not improve his hypertension and therefore he will be started on a Cardizem drip. Heparin was initially started by myself but after discussion with cardiology, it was stopped. He'll continue to trend his troponins. Patient was in agreement this plan. I did speak with Dr. Montalvo and of ICU due to the patient started on nicardipine drip, and he accepted the patient to the unit. I spoke with cardiology, Dr. Blood who agreed to evaluate and manage the patient. I spoke with the admitting team under Dr. Carpenter who accepted the patient. Patient was therefore admitted to the ICU in serious condition on a Cardizem drip. - Lab Data Result diagrams: 07/03/21 08:46 07/03/21 08:46 Lab Results 07/03/21 07/03/21 07/03/21 Range/Units 08:46 08:46 08:46 WBC 16.5 H (3.8-10.6) k/uL RBC 4.80 (4.30-5.90) m/uL Hgb 14.6 (13.0-17.5) gm/dL Hct 44.2 (39.0-53.0) % MCV 92.0 (80.0-100.0) fL MCH 30.5 (25.0-35.0) pg MCHC 33.1 (31.0-37.0) g/dL RDW 14.2 (11.5-15.5) % Plt Count 411 (150-450) k/uL MPV 6.6 Neutrophils % 87 % Lymphocytes % 7 % Monocytes % 5 % Eosinophils % 0 % Basophils % 0 % Neutrophils # 14.4 H (1.3-7.7) k/uL Lymphocytes # 1.1 (1.0-4.8) k/uL Monocytes # 0.8 (0-1.0) k/uL Eosinophils # 0.0 (0-0.7) k/uL Basophils # 0.0 (0-0.2) k/uL PT 10.7 (9.0-12.0) sec INR 1.0 (<1.2) APTT 24.6 (22.0-30.0) sec Sodium 142 (137-145) mmol/L Potassium 4.0 (3.5-5.1) mmol/L Chloride 104 (98-107) mmol/L Carbon Dioxide 23 (22-30) mmol/L Anion Gap 15 mmol/L BUN 42 H (9-20) mg/dL Creatinine 1.86 H (0.66-1.25) mg/dL Est GFR (CKD-EPI)AfAm 46 (>60 ml/min/1.73 sqM) Est GFR (CKD-EPI)NonAf 40 (>60 ml/min/1.73 sqM) Glucose 125 H (74-99) mg/dL Calcium 10.7 H (8.4-10.2) mg/dL Magnesium 1.5 L (1.6-2.3) mg/dL Total Bilirubin 0.6 (0.2-1.3) mg/dL AST 23 (17-59) U/L ALT 15 (4-49) U/L Alkaline Phosphatase 89 (38-126) U/L Troponin I (0.000-0.034) ng/mL Total Protein 8.1 (6.3-8.2) g/dL Albumin 5.0 (3.5-5.0) g/dL Amylase 59 (30-110) U/L Lipase 62 (23-300) U/L Coronavirus (PCR) (Not Detectd) 07/03/21 07/03/21 Range/Units 08:46 08:46 WBC (3.8-10.6) k/uL RBC (4.30-5.90) m/uL Hgb (13.0-17.5) gm/dL Hct (39.0-53.0) % MCV (80.0-100.0) fL MCH (25.0-35.0) pg MCHC (31.0-37.0) g/dL RDW (11.5-15.5) % Plt Count (150-450) k/uL MPV Neutrophils % % Lymphocytes % % Monocytes % % Eosinophils % % Basophils % % Neutrophils # (1.3-7.7) k/uL Lymphocytes # (1.0-4.8) k/uL Monocytes # (0-1.0) k/uL Eosinophils # (0-0.7) k/uL Basophils # (0-0.2) k/uL PT (9.0-12.0) sec INR (<1.2) APTT (22.0-30.0) sec Sodium (137-145) mmol/L Potassium (3.5-5.1) mmol/L Chloride (98-107) mmol/L Carbon Dioxide (22-30) mmol/L Anion Gap mmol/L BUN (9-20) mg/dL Creatinine (0.66-1.25) mg/dL Est GFR (CKD-EPI)AfAm (>60 ml/min/1.73 sqM) Est GFR (CKD-EPI)NonAf (>60 ml/min/1.73 sqM) Glucose (74-99) mg/dL Calcium (8.4-10.2) mg/dL Magnesium (1.6-2.3) mg/dL Total Bilirubin (0.2-1.3) mg/dL AST (17-59) U/L ALT (4-49) U/L Alkaline Phosphatase (38-126) U/L Troponin I 0.048 H* (0.000-0.034) ng/mL Total Protein (6.3-8.2) g/dL Albumin (3.5-5.0) g/dL Amylase (30-110) U/L Lipase (23-300) U/L Coronavirus (PCR) Not Detected (Not Detectd) - EKG Data -: EKG Interpreted by Me EKG Comments: 12-lead Electrocardiogram Interpretation Note EKG was reviewed and interpreted by myself. 12-lead ECG performed at 0834 is interpreted by me as revealing normal sinus rhythm at a rate of 65 beats per minute. Amelia is normal. OR interval is 120 ms, QRS duration is 100 ms, QTc is 420 ms.. There were no ST or T wave abnormalities to suggest myocardial ischemia or injury. R wave progression across the precordium was satisfactory. By my interpretation this EKG is non-diagnostic for acute ischemia. Disposition Clinical Impression: Chest pain, Hypertensive emergency, MATTHEW (acute kidney injury), Elevated troponin Disposition: ADMITTED IP TO THIS HOSP Condition: Serious
[2021-07-03 09:06] LABS: Calcium 10.7 mg/dL (8.4-10.2); Magnesium 1.5 mg/dL (1.6-2.3); Total Bilirubin 0.6 mg/dL (0.2-1.3); Total Protein 8.1 g/dL (6.3-8.2)
[2021-07-03 09:16] LABS: Basophils % (A) 0 %; Eosinophils % (A) 0 %; HCT 44.2 % (39.0-53.0); HGB 14.6 gm/dL (13.0-17.5); Lymphocytes # (A) 1.1 k/uL (1.0-4.8); Lymphocytes % (A) 7 %; MCH 30.5 pg (25.0-35.0); MCHC 33.1 g/dL (31.0-37.0); Mean Platelet Volume 6.6; Monocytes # (A) 0.8 k/uL (0-1.0); Monocytes % (A) 5 %; Neutrophils # (A) 14.4 k/uL (1.3-7.7); Neutrophils % (A) 87 %; Platelet Count 411 k/uL (150-450); RDW 14.2 % (11.5-15.5); WBC 16.5 k/uL (3.8-10.6)
[2021-07-03 09:22] LABS: Partial Thromboplastin Time 24.6 sec (22.0-30.0); Prothrombin Time 10.7 sec (9.0-12.0)
--- NOTE | 2021-07-03 09:36 | XR ---
EXAMINATION TYPE: XR chest 2V DATE OF EXAM: 07/03/2021 COMPARISON: 04/18/2019 TECHNIQUE: PA and lateral views submitted. HISTORY: Chest pain FINDINGS: The lungs are clear and there is no pneumothorax, pleural effusion, or focal pneumonia. Heart size normal. No overt failure. Biapical pleural thickening. Mild hyperinflation correlate for COPD. Hypert rophic change of the spine. IMPRESSION: 1. No acute process.
[2021-07-03] MEDS ORDERED: LABETALOL SYRINGE 5 MG/ML IVP STA (09:41)
[2021-07-03] MEDS ORDERED: HEPARIN SODIUM 1,000 UN/ML (10ML VL) IV PRN (09:48)
[2021-07-03] MEDS ORDERED: HEPARIN SODIUM 1,000 UN/ML (10ML VL) IV ONE (09:48)
[2021-07-03] MEDS ORDERED: HEPARIN SOD,PORK IN 0.45% NACL 25,000 UNIT in 0.45% NACL 1 250ML.BAG IV SCH (10:00)
[2021-07-03] MEDS ORDERED: MORPHINE SULFATE 4 MG/ML SYRINGE IVP STA (10:15)
[2021-07-03] MEDS ORDERED: NALOXONE 0.4 MG/ML 1 ML VIAL IV PRN ×2 (10:45→10:47)
[2021-07-03] MEDS ORDERED: ONDANSETRON 4 MG/2 ML VIAL IVP PRN (10:47)
[2021-07-03] MEDS ORDERED: MAGNESIUM SULFATE-D5W PMX 1 GM in DEXTROSE/WATER 1 100ML.BAG IVPB ONE (11:10)
[2021-07-03] MEDS: SODIUM CHLORIDE 0.9% 1,000 ML IV SCH (11:44)
[2021-07-03] MEDS: hydroCHLOROthiazide 25 MG TAB PO SCH (11:51)
[2021-07-03] MEDS: LOSARTAN 50 MG TAB PO SCH (11:51)
[2021-07-03] MEDS ORDERED: cloNIDine 0.3 MG/24HR PATCH TRANSDERM SCH (12:00)
[2021-07-03] MEDS: NITROGLYCERIN OINT 1 INCH/GM PACKET TOPICAL SCH (12:09)
--- NOTE | 2021-07-03 12:30 | P.CRDCN ---
History of Present Illness History of present illness: HISTORY OF PRESENTING ILLNESS This is a pleasant 56-year-old male past medical history significant for hypertension, dyslipidemia, chronic nicotine dependence, coronary artery disease status post PCI to the proximal LAD 12/2016, and PCI RCA in 12/2016 as well. He follows with Dr. Blood. We have been asked to see in consultation for elevated troponin and uncontrolled hypertension. Patient presents to the emergency department with nausea and vomiting and unable to keep down any of his med ications since Friday around 4AM. After having nausea and vomiting, he had an episode of substernal left-sided chest pain. Nonradiating, nonexertional. It is aggravated by his nausea and vomiting. He denies any abdominal pain, fever, chills, cough. He denies any lightheadedness, dizziness, syncope or near syncope. He denies any symptoms of orthopnea or PND. On admission patient's blood pressure elevated 200s/100s and uncontrolled. He was given IV Labetolol, and IV Zofran with improvement in nausea. No improvement in Blood pressure. Troponin minimally elevated 0.04. He also noted to be in acute kidney injury. DIAGNOSTICS EKG reveals sinus rhythm, heart rate 65, no significant ST-T wave abnormalities. LVH. Prior EKG was similar findings. Chest xray no acute cardiopulmonary process. Most recent stress test 09/2019 [facility] protocol, no evidence of stress-induced ischemia. Most recent echocardiogram 08/2019 the office revealed an EF of 50%, mild concentric hypertrophy, trace aortic regurgitation, mild mitral regurgitation, mild tricuspid regurgitation Laboratory reviewed, troponin 0.048, sodium 132, potassium 4.0, BUN 42, serum creatinine 1.8, magnesium 1.5, covid 19 PCR negative, WBC 16.5, hemoglobin 14.6, platelets 411 Current home medications include hydrochlorothiazide 25 mg daily, metoprolol titrate 50 mg twice a day, losartan 50 mg daily, clonidine 0.3 mg 3 times a day, atorvastatin 80 mg nightly, aspirin 81 mg daily REVIEW OF SYSTEMS CONSTITUTIONAL: Denies fever or chills. CARDIOVASCULAR:+ episode of chest pain, Denies shortness of breath, orthopnea, PND or palpitations. RESPIRATORY: Denies cough. GASTROINTESTINAL: Positive nausea, positive vomiting Denies abdominal pain, diarrhea, constipation MUSCULOSKELETAL: Denies myalgias. NEUROLOGIC: Denies numbness, tingling, headache or weakness. ENDOCRINE: Denies fatigue, weight change, polydipsia or polyurina. GENITOURINARY: Denies burning, hematuria or urgency with micturation. HEMATOLOGIC: Denies history of anemia or bleeding. PHYSICAL EXAMINATION Blood pressure 200/106 HR 63, afebrile on room air 98% CONSTITUTIONAL: No apparent distress. HEENT: Head is normocephalic. Pupils are equal, round. Sclerae anicteric. Mucous membranes of the mouth are moist. No JVD. No carotid bruit. CHEST EXAMINATION: Lungs are clear to auscultation. No chest wall tenderness is noted on palpation or with deep breathing. HEART EXAMINATION: Regular rate and rhythm. S1, S2 heard. Systolic ejection murmur noted ABDOMEN: Soft, nontender. Positive bowel sounds. EXTREMITIES: 2+ peripheral pulses, no lower extremity edema and no calf tenderness. SKIN:warm, dry NEUROLOGIC EXAMINATION: Patient is awake, alert and oriented x3. ASSESSMENT Severe Uncontrolled Hypertension Elevated troponin, first troponin mildly elevated, could be related to acute kidney injury Nausea, Vomiting, Decreased PO Intake Dyslipidemia Chronic nicotine dependence Coronary artery disease status post PCI to the proximal LAD 12/2016, and PCI RCA in 12/2016 PLAN -Patient's nausea and vomiting improved, able to drink clear liquids. Recommend restarting patient's antihypertensive before starting nicardipine drip. -Start clonidine patch 0.3mg, nitropaste TID -Continue losartan 50mg daily, hydrochlorothiazide 25mg daily, an d metoprolol tartrate -Continue aspirin, statin -Obtain 2D echocardiogram and doppler study to assess cardiac structure and function. -Trend troponin -Smoking cessation discussed and highly recommended. -Further recommendations based on clinical course Thank you kindly for this consultation. Nurse Practitioner note has been reviewed, I agree with a documented findings and plan of care. Patient was seen and examined. Past Medical History Past Medical History: Coronary Artery Disease (CAD), Chest Pain / Angina, Hyperlipidemia, Hypertension Additional Past Medical History / Comment(s): Hx migraines. states Elpidio snores. when Elpidio had stent placed, he states told him he did not have a heart attack History of Any Multi-Drug Resistant Organisms: None Reported Past Surgical History: Heart Catheterization With Stent, Hernia Repair Additional Past Surgical History / Comment(s): right thumb fx reduction, left thumb was also fractured, did not require surgery. Stent placed to lad December 14, 2016 ([employer]) and rca December 31, 2016 ([facility])both by ROBYN Dowell, follows with Dr. Blood Past Anesthesia/Blood Transfusion Reactions: No Reported Reaction Date of Last Stent Placement:: December 2016 Past Psychological History: No Psychological Hx Reported Smoking Status: Current every day smoker Past Alcohol Use History: Occasional Past Drug Use History: None Reported - Past Family History Mother Family Medical History: Hypertension Father Family Medical History: Coronary Artery Disease (CAD) Additional Family Medical History / Comment(s): triple vessel cabg and valve replacement, stents Brother(s) Family Medical History: Coronary Artery Disease (CAD) Additional Family Medical History / Comment(s): valve replacement Medications and Allergies Home Medications Medication Instructions Recorded Confirmed Type Aspirin 81 mg PO DAILY #30 12/15/16 07/03/21 Rx Atorvastatin [Lipitor] 80 mg PO HS 12/31/16 07/03/21 History Cholecalciferol [Vitamin D3 (25 50 mcg PO DAILY 07/03/21 07/03/21 History Mcg = 1000 Iu)] Losartan Potassium [Cozaar] 50 mg PO DAILY 07/03/21 07/03/21 History Metoprolol Tartrate [Lopressor] 50 mg PO BID 07/03/21 07/03/21 History cloNIDine HCL [Catapres] 0.3 mg PO TID 07/03/21 07/03/21 History hydroCHLOROthiazide 25 mg PO DAILY 07/03/21 07/03/21 History Allergies Allergy/AdvReac Type Severity Reaction Status Date / Time amlodipine Allergy Swelling Verified 07/03/21 10:09 hydralazine Allergy Rash/Hives Verified 07/03/21 10:09 Physical Exam Vitals: Vital Signs Temp Pulse Resp BP Pulse Ox 07/03/21 12:00 63 16 200/106 98 07/03/21 11:35 74 18 197/115 99 07/03/21 10:10 67 18 231/115 100 07/03/21 09:37 65 18 229/123 98 07/03/21 09:15 67 18 242/120 99 07/03/21 08:23 98.3 F 95 18 251/129 96 Intake and Output 07/02/21 07/03/21 07/03/21 22:59 06:59 14:59 Other: Weight 74.843 kg Results 07/03/21 08:46 07/03/21 08:46 Cardiac Enzymes 07/03/21 07/03/21 Range/Units 08:46 08:46 AST 23 (17-59) U/L Troponin I 0.048 H* (0.000-0.034) ng/mL Coagulation 07/03/21 Range/Units 08:46 PT 10.7 (9.0-12.0) sec APTT 24.6 (22.0-30.0) sec CBC 07/03/21 Range/Units 08:46 WBC 16.5 H (3.8-10.6) k/uL RBC 4.80 (4.30-5.90) m/uL Hgb 14.6 (13.0-17.5) gm/dL Hct 44.2 (39.0-53.0) % Plt Count 411 (150-450) k/uL Comprehensive Metabolic Panel 07/03/21 Range/Units 08:46 Sodium 142 (137-145) mmol/L Potassium 4.0 (3.5-5.1) mmol/L Chloride 104 (98-107) mmol/L Carbon Dioxide 23 (22-30) mmol/L BUN 42 H (9-20) mg/dL Creatinine 1.86 H (0.66-1.25) mg/dL Glucose 125 H (74-99) mg/dL Calcium 10.7 H (8.4-10.2) mg/dL AST 23 (17-59) U/L ALT 15 (4-49) U/L Alkaline Phosphatase 89 (38-126) U/L Total Protein 8.1 (6.3-8.2) g/dL Albumin 5.0 (3.5-5.0) g/dL Current Medications Generic Name Dose Route Start Last Admin Trade Name Freq PRN Reason Stop Dose Admin Aspirin 81 mg 07/04/21 09:00 Aspirin 81 Mg PO DAILY MAYLIN Atorvastatin Calcium 80 mg 07/03/21 21:00 Atorvastatin 80 Mg Tab PO HS MAYLIN Clonidine HCl 1 patch 07/03/21 12:00 Clonidine 0.3 Mg/24hr Patch TRANSDERM Q7D MAYLIN Hydrochlorothiazide 25 mg 07/03/21 11:00 07/03/21 11:51 Hydrochlorothiazide 25 Mg Tab PO 25 mg DAILY MAYLIN Administration Nicardipine HCl 20 mg/ Sodium 200 mls @ 50 mls/hr 07/03/21 10:45 Chloride IV .Q4H MAYLIN Protocol 5 MG/HR Sodium Chloride 1,000 mls @ 75 mls/hr 07/03/21 11:00 07/03/21 11:44 Saline 0.9% IV 75 mls/hr .[id number] MAYLIN Administration Losartan Potassium 50 mg 07/03/21 11:00 07/03/21 11:51 Losartan 50 Mg Tab PO 50 mg DAILY MAYLIN Administration Metoprolol Tartrate 50 mg 07/03/21 21:00 Metoprolol Tartrate 50 Mg Tab PO BID MAYLIN Morphine Sulfate 4 mg 07/03/21 10:45 Morphine Sulfate 4 Mg/Ml Syringe IV Q4HR PRN Pain Scale 8 to 10 Naloxone HCl 0.2 mg 07/03/21 10:47 Naloxone 0.4 Mg/Ml 1 Ml Vial IV Q2M PRN Opioid Reversal Nitroglycerin 0.5 inch 07/03/21 12:01 07/03/21 12:09 Nitroglycerin Oint 1 Inch/Gm Packet TOPICAL 0.5 inch Q8HR MAYLIN Administration Ondansetron HCl 4 mg 07/03/21 10:47 Ondansetron 4 Mg/2 Ml Vial IVP Q8HR PRN Nausea And Vomiting Intake and Output 07/02/21 07/03/21 07/03/21 22:59 06:59 14:59 Other: Weight 74.843 kg Patient Weight 07/04/21 06:59 Weight 74.843 kg 07/03/21 08:46 07/03/21 08:46
--- NOTE | 2021-07-03 13:02 | P.HPIM ---
History of Present Illness Patient is a pleasant 56-year-old male came in with compensative chest pain found have mildly elevated troponins and patient had left and clinical hypertrophy on the EKG and patient is found to have elevated blood pressure with systolics going about 220. Patient denied any shortness of breath abdominal pain. Patient denied any confusion or headache. Patient did miss his blood pressure medications for last couple days because of nausea vomiting without any significant abdominal pain. Patient nausea is better patient the did receive Zofran. Patient was initially on IV antidepressant medications patient was started on IV calcium 10 fernando and was admitted to ICU. Subsequently patient was evaluated by cardiology since he can tolerate by mouth medications patient was resumed on his home medications. Patient appears to be bit noncompliant with his medication recommendations patient continues to smoke. Patient is will ing to quit smoking. Patient smokes about one pack per day. REVIEW OF SYSTEMS: CONSTITUTIONAL: No fever, no malaise, no fatigue. HEENT: No recent visual problems or hearing problems. Denied any sore throat. CARDIOVASCULAR: No orthopnea, PND, no palpitations, no syncope. PULMONARY: No shortness of breath, no cough, no hemoptysis. GASTROINTESTINAL: No diarrhea, no nausea, no vomiting, no abdominal pain. NEUROLOGICAL: No headaches, no weakness, no numbness. HEMATOLOGICAL: Denies any bleeding or petechiae. GENITOURINARY: Denies any burning micturition, frequency, or urgency. MUSCULOSKELETAL/RHEUMATOLOGICAL: Denies any joint pain, swelling, or any muscle pain. ENDOCRINE: Denies any polyuria or polydipsia. The rest of the 14-point review of systems is negative. PHYSICAL EXAMINATION: GENERAL: The patient is alert and oriented x3, not in any acute distress. Well developed, well nourished. HEENT: Pupils are round and equally reacting to light. EOMI. No scleral icterus. No conjunctival pallor. Normocephalic, atraumatic. No pharyngeal erythema. No thyromegaly. CARDIOVASCULAR: S1 and S2 present. No murmurs, rubs, or gallops. PULMONARY: Chest is clear to auscultation, no wheezing or crackles. ABDOMEN: Soft, nontender, nondistended, normoactive bowel sounds. No palpable organomegaly. MUSCULOSKELETAL: No joint swelling or deformity. EXTREMITIES: No cyanosis, clubbing, or pedal edema. NEUROLOGICAL: Gross neurological examination did not reveal any focal deficits. SKIN: No rashes. Assessment and plan -Hypertensive emergency: Improved now patient is off on the venous antidepressant medications at this time and patient was resumed on the losartan and a diuretic. -Renal failure kidney disease secondary failure is probably secondary to hypertensive emergency and the probably secondary to nausea vomiting. We will increase him to drink water. Testing habitus emergency not starting him on any normal saline at this time recheck kidney function tomorrow if it gets worse when he to hold off on losartan and hydrochlorothiazide at that time. -Nausea vomiting: Possibly gastritis or peptic is a disease patient was started on Protonix -Hyperlipidemia next -Essential hypertension -Nicotine use: Counseling was provided DVT prophylaxis: Early ambulation Past Medical History Past Medical History: Coronary Artery Disease (CAD), Chest Pain / Angina, Hyperlipidemia, Hypertension Additional Past Medical History / Comment(s): Hx migraines. states Elpidio sarmiento. when Elpidio had stent placed, he states told him he did not have a heart attack History of Any Multi-Drug Resistant Organisms: None Reported Past Surgical History: Heart Catheterization With Stent, Hernia Repair Additional Past Surgical History / Comment(s): right thumb fx reduction, left thumb was also fractured, did not require surgery. Stent placed to lad December 14, 2016 ([employer]) and rca December 31, 2016 ([facility])both by ROBYN Dowell, follows with Dr. Blood Past Anesthesia/Blood Transfusion Reactions: No Reported Reaction Date of Last Stent Placement:: December 2016 Past Psychological History: No Psychological Hx Reported Smoking Status: Current every day smoker Past Alcohol Use History: Occasional Past Drug Use History: None Reported - Past Family History Mother Family Medical History: Hypertension Father Family Medical History: Coronary Artery Disease (CAD) Additional Family Medical History / Comment(s): triple vessel cabg and valve replacement, stents Brother(s) Family Medical History: Coronary Artery Disease (CAD) Additional Family Medical History / Comment(s): valve replacement Medications and Allergies Home Medications Medication Instructions Recorded Confirmed Type Aspirin 81 mg PO DAILY #30 12/15/16 07/03/21 Rx Atorvastatin [Lipitor] 80 mg PO HS 12/31/16 07/03/21 History Cholecalciferol [Vitamin D3 (25 50 mcg PO DAILY 07/03/21 07/03/21 History Mcg = 1000 Iu)] Losartan Potassium [Cozaar] 50 mg PO DAILY 07/03/21 07/03/21 History Metoprolol Tartrate [Lopressor] 50 mg PO BID 07/03/21 07/03/21 History cloNIDine HCL [Catapres] 0.3 mg PO TID 07/03/21 07/03/21 History hydroCHLOROthiazide 25 mg PO DAILY 07/03/21 07/03/21 History Allergies Allergy/AdvReac Type Severity Reaction Status Date / Time amlodipine Allergy Swelling Verified 07/03/21 10:09 hydralazine Allergy Rash/Hives Verified 07/03/21 10:09 Physical Exam Vitals: Vital Signs Temp Pulse Resp BP Pulse Ox 07/03/21 12:00 63 16 200/106 98 07/03/21 11:35 74 18 197/115 99 07/03/21 10:10 67 18 231/115 100 07/03/21 09:37 65 18 229/123 98 07/03/21 09:15 67 18 242/120 99 07/03/21 08:23 98.3 F 95 18 251/129 96 Intake and Output 07/02/21 07/03/21 07/03/21 22:59 06:59 14:59 Other: Weight 74.843 kg Results CBC & Chem 7: 07/03/21 08:46 07/03/21 08:46 Labs: Abnormal Lab Results - Last 24 Hours (Table) 07/03/21 07/03/21 07/03/21 Range/Units 08:46 08:46 08:46 WBC 16.5 H (3.8-10.6) k/uL Neutrophils # 14.4 H (1.3-7.7) k/uL BUN 42 H (9-20) mg/dL Creatinine 1.86 H (0.66-1.25) mg/dL Glucose 125 H (74-99) mg/dL Calcium 10.7 H (8.4-10.2) mg/dL Magnesium 1.5 L (1.6-2.3) mg/dL Troponin I 0.048 H* (0.000-0.034) ng/mL
[2021-07-03] MEDS: PANTOPRAZOLE 40 MG/10 ML VIAL IVP SCH (14:09)
[2021-07-03] MEDS: METOPROLOL TARTRATE 50 MG TAB PO SCH ×2 (14:27→23:28)
[2021-07-03] MEDS ORDERED: ACETAMINOPHEN TAB 325 MG TAB PO PRN (15:22)
[2021-07-03] MEDS: MORPHINE SULFATE 4 MG/ML SYRINGE IV PRN (15:37)
[2021-07-03] MEDS ORDERED: cloNIDine HCL 0.1 MG TAB PO SCH (16:00)
[2021-07-03] MEDS ORDERED: amLODIPine 5 MG TAB PO STA (17:40)
[2021-07-03] MEDS ORDERED: METOPROLOL TARTRATE 50 MG TAB PO SCH (21:00)
[2021-07-03] MEDS ORDERED: ATORVASTATIN 80 MG TAB PO SCH (21:00)
[2021-07-04] MEDS: MORPHINE SULFATE 4 MG/ML SYRINGE IV PRN (00:54)
[2021-07-04] MEDS: NITROGLYCERIN OINT 1 INCH/GM PACKET TOPICAL SCH ×2 (00:54→08:49)
[2021-07-04] MEDS: SODIUM CHLORIDE 0.9% 1,000 ML IV SCH (00:59)
[2021-07-04 03:48] VITALS: RESP 16
[2021-07-04 06:58] LABS: Basophils % (A) 0 %; Eosinophils # (A) 0.2 k/uL (0-0.7); Eosinophils % (A) 2 %; HCT 35.5 % (39.0-53.0); HGB 11.8 gm/dL (13.0-17.5); Lymphocytes % (A) 17 %; MCH 30.4 pg (25.0-35.0); MCHC 33.1 g/dL (31.0-37.0); Mean Platelet Volume 6.8; Monocytes # (A) 0.7 k/uL (0-1.0); Monocytes % (A) 7 %; Neutrophils # (A) 8.3 k/uL (1.3-7.7); Neutrophils % (A) 73 %; Platelet Count 270 k/uL (150-450); RBC 3.86 m/uL (4.30-5.90); RDW 13.8 % (11.5-15.5); WBC 11.5 k/uL (3.8-10.6)
[2021-07-04 07:09] LABS: Prothrombin Time 10.6 sec (9.0-12.0)
[2021-07-04 07:39] LABS: Albumin 3.4 g/dL (3.5-5.0); Magnesium 1.8 mg/dL (1.6-2.3); Potassium 4.2 mmol/L (3.5-5.1); Total Bilirubin 0.5 mg/dL (0.2-1.3); Total Protein 5.9 g/dL (6.3-8.2)
[2021-07-04] MEDS: niCARdipine 20 MG in SODIUM CHLORIDE 0.9% 192 ML IV SCH ×4 (08:28→13:43)
[2021-07-04 08:48] VITALS: PULSE 61
[2021-07-04] MEDS: PANTOPRAZOLE 40 MG/10 ML VIAL IVP SCH (08:49)
[2021-07-04] MEDS: METOPROLOL TARTRATE 50 MG TAB PO SCH (08:49)
[2021-07-04] MEDS: LOSARTAN 50 MG TAB PO SCH (08:49)
[2021-07-04] MEDS: hydroCHLOROthiazide 25 MG TAB PO SCH (08:49)
[2021-07-04] MEDS ORDERED: ASPIRIN 81 MG PO SCH (09:00)
[2021-07-04] MEDS ORDERED: cloNIDine HCL 0.1 MG TAB PO SCH (09:00)
[2021-07-04] MEDS ORDERED: LOSARTAN 50 MG TAB PO SCH (09:00)
--- NOTE | 2021-07-04 09:35 | ECHOF ---
Referral Reason:elevated troponin MEASUREMENTS -------- HEIGHT: 170.2 cm WEIGHT: 74.8 kg BP: 200/106 RVIDd: 3.7 cm (< 3.3) IVSd: 1.6 cm (0.6 - 1.1) LVIDd: 4.3 cm (3.9 - 5.3) LVPWd: 1.6 cm (0.6 - 1.1) IVSs: 2.1 cm LVIDs: 3.1 cm LVPWs: 1.6 cm LAESV Index (A-L): 30.09 ml/m Ao Diam: 2.6 cm (2.0 - 3.7) AV Cusp: 2.0 cm (1.5 - 2.6) LA Diam: 4.3 cm (2.7 - 3.8) MV EXCURSION: 11.820 mm (> 18.000) MV EF SLOPE: 94 mm/s (70 - 150) EPSS: 0.4 cm MV E Melvin: 0.99 m/s MV DecT: 201 ms MV A Melvin: 0.98 m/s MV E/A Ratio: 1.01 RAP: 5.00 mmHg RVSP: 26.03 mmHg FINDINGS -------- Sinus rhythm. This was a technically adequate study. The left ventricular size is normal. There is moderate concentric left ventricular hypertrophy. O verall left ventricular systolic function is normal with, an EF between 55 - 60 %. The right ventricle is mildly enlarged. Interatrial and interventricular septum intact. The aortic valve is trileaflet and appears structurally normal. There is no evidence of aortic regu rgitation. There is no evidence of aortic stenosis. Mild mitral regurgitation is present. Mild tricuspid regurgitation present. There is no evidence of pulmonary hypertension. The right v entricular systolic pressure, as measured by Doppler, is 26.03mmHg. There is no pulmonic regurgitation present. The aortic root size is normal. IVC Not well visulized. Echo free space represents a pericardial fat pad. There is no pericardial effusion. CONCLUSIONS -------- 1. The left ventricular size is normal. 2. There is moderate concentric left ventricular hypertrophy. 3. Overall left ventricular systolic function is normal with, an EF between 55 - 60 %. 4. The right ventricle is mildly enlarged. 5. Mild mitral regurgitation is present. 6. Mild tricuspid regurgitation present. PERFUMER: Lalita Garcia RDCS
--- NOTE | 2021-07-04 10:09 | PN ---
PROGRESS NOTE FOLLOW-UP NOTE: Elpidio is a 56-year-old gentleman with history of hypertension who presented to hospital with nausea, vomiting and severely elevated blood pressures, as he was not keeping down his medications. I treated him with Catapres patch, nitro paste, and resumed his medications, with excellent blood pressure response. This morning he is feeling much better. The nausea and vomiting have improved and the blood pressures are better controlled. I will follow the echocardiogram that he had, but patient can be discharged home on the medications that he is currently on. His BUN and creatinine that were elevated have improved. There was mild troponin elevation, probably related to the renal insufficiency. Coronavirus test is negative. On exam, comfortable at rest. Heart rate is 60 beats per minute, blood pressure is 147/93, respiratory rate is 16, O2 saturation is 95% on room air. Chest exam reveals good air entry bilaterally. Heart exam reveals first and second heart sounds. An S4 is heard. Abdomen is soft. Examination of extremities did not reveal any edema. Peripheral pulses are felt. ASSESSMENT: 1. Hypertensive emergency secondary to nausea, vomiting and inability to keep the medications down. 2. Renal insufficiency secondary to nausea and vomiting. PLAN: Will review the echocardiogram. Patient can be discharged home later today. He already has an appointment to see me in the office, which he is going to keep. MMODL / IJN: [id number] /
[2021-07-04 12:09] VITALS: BP 147/84
--- NOTE | 2021-07-04 12:22 | P.PN ---
Subjective Progress Note Date: 07/04/21 Principal diagnosis: Hypertensive emergency The patient is seen today 07/04/2021 in follow-up in the emergency department. He was initially going to be admitted to the intensive care unit for hypertensive urgency however bed was not available and and now the patient's blood pressure is under better control. Currently 147/84. He is maintaining O2 saturations in the 90s on room air. No headache. No blurred vision. White count 11.5. Hemoglobin 11.8. Sodium 137. Potassium 4.2. Creatinine 1.59. Troponin 0.048, 0.043, 0.033. Heparin drip was discontinued for questionable non-STEMI. He's been initiated on Catapres, hydrochlorothiazide, Cozaar. Echocardiogram revealed moderate concentric LVH. Ejection fraction within normal limits at 55-60%. Right ventricle mildly enlarged. No significant valvular disease. Objective - Vital Signs Vital signs: Vital Signs Temp 98.3 F 07/03/21 08:23 Pulse 61 07/04/21 08:47 Resp 16 07/04/21 12:00 BP 147/84 07/04/21 12:00 Pulse Ox 93 L 07/04/21 06:05 Intake & Output 07/03/21 07/04/21 07/04/21 18:59 06:59 18:59 Weight 74.843 kg - Exam GENERAL EXAM: Alert, pleasant 56-year-old gentleman, on room air, comfortable in no apparent distress. HEAD: Normocephalic. EYES: Normal reaction of pupils, equal size. NOSE: Clear with pink turbinates. THROAT: No erythema or exudates. NECK: No masses, no JVD. CHEST: No chest wall deformity. LUNGS: Equal air entry with no crackles, wheeze, rhonchi or dullness. CVS: S1 and S2 normal with no audible murmur, regular rhythm. ABDOMEN: No hepatosplenomegaly, normal bowel sounds, no guarding or rigidity. SPINE: No scoliosis or deformity SKIN: No rashes CENTRAL NERVOUS SYSTEM: No focal deficits, tone is normal in all 4 extremities. EXTREMITIES: There is no peripheral edema. No clubbing, no cyanosis. Peripheral pulses are intact. - Labs CBC & Chem 7: 07/04/21 05:40 07/04/21 05:40 Labs: Abnormal Lab Results - Last 24 Hours (Table) 07/03/21 07/04/21 07/04/21 Range/Units 12:55 05:40 05:40 WBC 11.5 H (3.8-10.6) k/uL RBC 3.86 L (4.30-5.90) m/uL Hgb 11.8 L (13.0-17.5) gm/dL Hct 35.5 L (39.0-53.0) % Neutrophils # 8.3 H (1.3-7.7) k/uL BUN 38 H (9-20) mg/dL Creatinine 1.59 H (0.66-1.25) mg/dL Troponin I 0.043 H* (0.000-0.034) ng/mL Total Protein 5.9 L (6.3-8.2) g/dL Albumin 3.4 L (3.5-5.0) g/dL Assessment and Plan Assessment: 1 Hypertensive urgency, recovered, currently on Catapres, hydrochlorothiazide, Cozaar. Echocardiogram revealed preserved left ventricular systolic function with moderate left ventricular hypertrophy. 2 History of hypertension 3 Hyperlipidemia 4 Chronic tobacco dependence 5 Coronary disease with previous stent placements to the LAD and RCA Plan: The patient was seen and evaluated Cleared for discharge from the pulmonary/critical care standpoint Cleared for discharge from a cardiology standpoint He will keep his appointment with his air press operator as scheduled I, the cosigning physician, performed a history & physical examination of the patient. Lungs sounds are clear. Maintaining good O2 saturations in the 90s on room air. I discussed the assessment and plan of care with my nurse practitioner, Florina Zamora. I attest to the above note as dictated by her.
--- NOTE | 2021-07-04 12:45 | P.DS ---
Providers Date of admission: 07/03/21 10:45 Attending physician: Trever Carpenter Consults: 07/03/21 10:45 Consult Physician Stat Consulting Provider: Steve Montalvo Consult Reason/Comments: Hypertensive emergency, nicardipine drip Do you want consulting provider notified?: Already Contacted Consult Physician Urgent Consulting Provider: [facility] Consult Reason/Comments: NSTEMI, hypertensive emergency Do you want consulting provider notified?: Yes Primary care physician: Wesley Rivero Patient Condition at Discharge: Serious Plan - Discharge Summary Discharge Rx Participant: No New Discharge Prescriptions: New Losartan [Cozaar] 100 mg PO DAILY 30 Days #60 tab Continue Aspirin 81 mg PO DAILY #30 Atorvastatin [Lipitor] 80 mg PO HS hydroCHLOROthiazide 25 mg PO DAILY Metoprolol Tartrate [Lopressor] 50 mg PO BID Cholecalciferol [Vitamin D3 (25 Mcg = 1000 Iu)] 50 mcg PO DAILY cloNIDine HCL [Catapres] 0.3 mg PO TID Discontinued Losartan Potassium [Cozaar] 50 mg PO DAILY Discharge Medication List Aspirin 81 mg PO DAILY #30 12/15/16 [Rx] Atorvastatin [Lipitor] 80 mg PO HS 12/31/16 [History] Cholecalciferol [Vitamin D3 (25 Mcg = 1000 Iu)] 50 mcg PO DAILY 07/03/21 [History] Metoprolol Tartrate [Lopressor] 50 mg PO BID 07/03/21 [History] cloNIDine HCL [Catapres] 0.3 mg PO TID 07/03/21 [History] hydroCHLOROthiazide 25 mg PO DAILY 07/03/21 [History] Losartan [Cozaar] 100 mg PO DAILY 30 Days #60 tab 07/04/21 [Rx] Follow up Appointment(s)/Referral(s): Wesley Rivero DO [Primary Care Provider] - 1-2 days (Office is closed. Please call to make follow up.) Bennett Blood MD [Family Provider] - 2 Weeks (PLease keep your July appointment) Ambulatory/Diagnostic Orders: Basic Metabolic Panel [LAB.AMB] Time Frame: 2 Days, Location: None Selected Complete Blood Count w/diff [LAB.AMB] Time Frame: 2 Days, Location: None Selected Discharge Disposition: HOME SELF-CARE
--- NOTE | 2021-07-04 13:44 | P.CNPUL ---
History of Present Illness Consult date: 07/03/21 Chief complaint: Acute hypertensive emergency History of present illness: 56-year-old man patient has been admitted to the emergency department for chest pain and the patient was also found to have an elevated troponin and he was found to be hypertensive emergency. For that reason, a pulmonary critical care is also patient was also requested. Note that the patient was having elevated blood pressure with a systolic blood pressure as high as 2 20 mmHg. No associated shortness of breath. No altered mentation. No focal neurological deficit. No pleurisy. No hemoptysis. He was feeling some nausea and for that reason he was given Zofran. Note that the patient has been unable to take any of his medications since Friday 4 AM. He presented to the burst department because of nausea and emesis and he did have a single episode of's left-sided chest pain. The pain was nonradiating. On admission, the patient was given IV labetalol. The patient was subsequently started on IV knee cardiac pain which is currently running at 5 mg an hour and his most recent blood pressure is down to 199/107. His heart rate is 61. His room air pulse ox is 98%. At the same time, the patient was started on his antihypertensive medications including metoprolol 50 mg twice a day, losartan 50 mg by mouth daily, hydrochlorothiazide 25 mg by mouth daily and he was given a nitroglycerin 0.5 inch patch every 8 hours. He was also given a clonidine patch 0.3 mg every 7 days. On his blood work, the patient is a white cell, 16.5, correlation profile has been normal, creatinine is at 1.8 consistent with acute kidney injury, troponins are 0.042 respectively. Rest of the electrodes are all within normal limits. Calcium level is at 10.7. Amylase lipase and liver function tests are normal. COVID 19 testing is been negative. Chest x-ray. Shows no acute abnormalities. EKG is showing LVH, normal sinus rhythm otherwise. Review of Systems CONSTITUTIONAL: Denies fever or chills. CARDIOVASCULAR:+ episode of chest pain, Denies shortness of breath, orthopnea, PND or palpitations. RESPIRATORY: Denies cough. GASTROINTESTINAL: Positive nausea, positive vomiting Denies abdominal pain, diarrhea, constipation MUSCULOSKELETAL: Denies myalgias. NEUROLOGIC: Denies numbness, tingling, headache or weakness. ENDOCRINE: Denies fatigue, weight change, polydipsia or polyurina. GENITOURINARY: Denies burning, hematuria or urgency with micturation. HEMATOLOGIC: Denies history of anemia or bleeding. Past Medical History Past Medical History: Coronary Artery Disease (CAD), Chest Pain / Angina, Hyperlipidemia, Hypertension, Osteoarthritis (OA) Additional Past Medical History / Comment(s): Hx migraines. Hx of sciatica with injections History of Any Multi-Drug Resistant Organisms: None Reported Past Surgical History: Heart Catheterization With Stent, Hernia Repair Additional Past Surgical History / Comment(s): right thumb fx reduction, left thumb was also fractured, did not require surgery. Stent placed to lad December 14, 2016 ([employer]) and rca December 31, 2016 ([facility])both by ROBYN Dowell, follows with Dr. Blood Past Anesthesia/Blood Transfusion Reactions: No Reported Reaction Date of Last Stent Placement:: December 2016 Smoking Status: Current every day smoker - Past Family History Mother Family Medical History: Hypertension Father Family Medical History: Coronary Artery Disease (CAD) Additional Family Medical History / Comment(s): triple vessel cabg and valve replacement, stents Brother(s) Family Medical History: Coronary Artery Disease (CAD) Additional Family Medical History / Comment(s): valve replacement Medications and Allergies Home Medications Medication Instructions Recorded Confirmed Type Aspirin 81 mg PO DAILY #30 12/15/16 07/03/21 Rx Atorvastatin [Lipitor] 80 mg PO HS 12/31/16 07/03/21 History Cholecalciferol [Vitamin D3 (25 50 mcg PO DAILY 07/03/21 07/03/21 History Mcg = 1000 Iu)] Losartan Potassium [Cozaar] 50 mg PO DAILY 07/03/21 07/03/21 History Metoprolol Tartrate [Lopressor] 50 mg PO BID 07/03/21 07/03/21 History cloNIDine HCL [Catapres] 0.3 mg PO TID 07/03/21 07/03/21 History hydroCHLOROthiazide 25 mg PO DAILY 07/03/21 07/03/21 History Allergies Allergy/AdvReac Type Severity Reaction Status Date / Time amlodipine Allergy Swelling Verified 07/03/21 10:09 hydralazine Allergy Rash/Hives Verified 07/03/21 10:09 Physical Exam Vitals: Vital Signs Temp Pulse Resp BP Pulse Ox 07/03/21 15:00 61 16 199/107 98 07/03/21 14:30 61 16 211/113 96 07/03/21 14:00 62 18 221/115 97 07/03/21 13:39 81 18 178/110 98 07/03/21 12:00 63 16 200/106 98 07/03/21 11:35 74 18 197/115 99 07/03/21 10:10 67 18 231/115 100 07/03/21 09:37 65 18 229/123 98 07/03/21 09:15 67 18 242/120 99 07/03/21 08:23 98.3 F 95 18 251/129 96 Intake and Output 07/03/21 07/03/21 07/03/21 06:59 14:59 22:59 Other: Weight 74.843 kg 74.843 kg CONSTITUTIONAL: No apparent distress. Head exam was generally normal. There was no scleral icterus or corneal arcus. Mucous membranes were moist. Neck was supple and without jugular venous distension, thyromegaly, or carotid bruits. Carotids were easily palpable bilaterally. There was no adenopathy. HEENT: Head is normocephalic. Pupils are equal, round. Sclerae anicteric. Mucous membranes of the mouth are moist. No JVD. No carotid bruit. CHEST EXAMINATION: Lungs are clear to auscultation. No chest wall tenderness is noted on palpation or with deep breathing. HEART EXAMINATION: Regular rate and rhythm. S1, S2 heard. Systolic ejection murmur noted Abdominal exam revealed normal bowel sounds. The abdomen was soft, non-tender, and without masses, organomegaly, or appreciable enlargement of the abdominal aorta. EXTREMITIES: 2+ peripheral pulses, no lower extremity edema and no calf ten derness. Examination of the skin revealed no evidence of significant rashes, suspicious appearing nevi or other concerning lesions. NEUROLOGIC EXAMINATION: Patient is awake, alert and oriented x3. Results - Laboratory Findings CBC and BMP: 07/03/21 08:46 07/03/21 08:46 PT/INR, D-dimer PT 10.7 sec (9.0-12.0) 07/03/21 08:46 INR 1.0 (<1.2) 07/03/21 08:46 Abnormal lab findings: Abnormal Labs 07/03/21 07/03/21 07/03/21 08:46 08:46 08:46 WBC 16.5 H Neutrophils # 14.4 H BUN 42 H Creatinine 1.86 H Glucose 125 H Calcium 10.7 H Magnesium 1.5 L Troponin I 0.048 H* 07/03/21 12:55 WBC Neutrophils # BUN Creatinine Glucose Calcium Magnesium Troponin I 0.043 H* - Diagnostic Findings Chest x-ray: image reviewed Assessment and Plan Plan: 1 acute hypertensive emergency. The patient is currently on any Nicardipine drip at 5 mg an hour and the patient was restarted back on his routine antihyper tensive medication. The patient will be admitted intensive care unit for tighter blood pressure monitoring. 2 abnormal troponin, likely secondary to hypertensive emergency. No acute EKG changes. Preoperative any chest pain at this point in time 3 nausea and emesis secondary to hypertension and poorly controlled blood pressure 4 coronary artery disease with previous PCI of the LAD and RCA with stenting 5 hyperlipidemia 6 history of hypertension 7 acute kidney injury likely secondary to poorly controlled blood pressure 8 hypertensive heart disease with diastolic heart failure based on a previous echocardiogram with the present of the function and an ejection fraction of 6065% Plan Admit this patient to the ICU for blood pressure control Continue the nicardipine drip Resume oral hypertensive medications including metoprolol, losartan and hydrochlorothiazide Clonidine patch Nitroglycerin patch Monitor troponin Repeat echocardiogram Monitor renal function We'll continue to follow
[2021-07-05] MEDS ORDERED: PANTOPRAZOLE 40 MG TABLET PO SCH (07:30)
== END 2021-07-04 13:40 | disposition home or self-care (01) | DRG 305 ==
LOC: EC 08:10 → 2SICU 10:45 → 3SCARD 19:21
PROVIDERS: ADMIT Internal Medicine; ATTEND Internal Medicine
DX: I16.1 Hypertensive emergency (principal); N17.9 Acute kidney failure, unspecified; I50.32 Chronic diastolic (congestive) heart failure; I16.0 Hypertensive urgency; I10 Essential (primary) hypertension; R11.2 Nausea with vomiting, unspecified; Z20.822 Contact with and (suspected) exposure to COVID-19; K29.70 Gastritis, unspecified, without bleeding; I08.1 Rheumatic disorders of both mitral and tricuspid valves; G43.909 Migraine, unspecified, not intractable, without status migrainosus; K27.9 Peptic ulcer, site unspecified, unspecified as acute or chronic, without hemorrhage or perforation; E78.5 Hyperlipidemia, unspecified; D72.829 Elevated white blood cell count, unspecified; E83.42 Hypomagnesemia; F17.210 Nicotine dependence, cigarettes, uncomplicated; I25.10 Atherosclerotic heart disease of native coronary artery without angina pectoris; Z79.82 Long term (current) use of aspirin; Z79.899 Other long term (current) drug therapy; Z95.5 Presence of coronary angioplasty implant and graft; Z82.49 Family history of ischemic heart disease and other diseases of the circulatory system; Z88.8 Allergy status to other drugs, medicaments and biological substances; Z71.6 Tobacco abuse counseling; Z87.19 Personal history of other diseases of the digestive system
CPT/HCPCS: 36415; 71046; 80053; 82150; 83690; 83735; 84484; 85025; 85610; 85730; 87635; 93005; 93306; 96361; 96374; 96375; 99285

== ENCOUNTER 2022-04-17 21:32 | Inpatient (IN) | payer BC ==
[2022-04-17] MEDS ORDERED: NITROGLYCERIN OINT 1 INCH/GM PACKET TOPICAL STA (21:58)
[2022-04-17] MEDS ORDERED: MORPHINE SULFATE 4 MG/ML SYRINGE IV STA (21:58)
[2022-04-17] MEDS ORDERED: METOPROLOL TARTRATE 50 MG TAB PO STA (21:59)
[2022-04-17] MEDS ORDERED: ENALAPRILAT 1.25 MG/ML 1 ML VIAL IVP STA (22:00)
--- NOTE | 2022-04-17 22:02 | ED ---
Chest Pain HPI - General Chief Complaint: Chest Pain Stated Complaint: chest pain Time Seen by Provider: 04/17/22 21:38 Source: EMS Mode of arrival: EMS Limitations: no limitations - History of Present Illness Initial Comments: This patient is 57-year-old man presenting with substernal chest pain that had developed approximately 2 hours ago while at rest. Patient states that the pain radiates to his back. It was initially severe. Patient did try taking nitroglycerin which may be decrease the pain a little but did not resolve it. He called EMS who have transported him here. The patient also had narcotic analgesia which she states is brought the pain down to moderate. He did not have any diaphoresis, nausea or vomiting. He did have some dyspnea associated. MD Complaint: chest pain Onset/Timin -: hour(s) Onset: during rest Pain Location: substernal Pain Radiation: none Consistency: constant Improves With: nothing Worsens With: nothing Treatments Prior to Arrival: none - Related Data Home Medications Medication Instructions Recorded Confirmed Atorvastatin [Lipitor] 80 mg PO HS 12/31/16 04/18/22 Cholecalciferol [Vitamin D3 (25 50 mcg PO DAILY 07/03/21 04/18/22 Mcg = 1000 Iu)] cloNIDine HCL [Catapres] 0.3 mg PO TID 07/03/21 04/18/22 hydroCHLOROthiazide 25 mg PO DAILY 07/03/21 04/18/22 Metoprolol Tartrate [Lopressor] 100 mg PO BID 04/18/22 04/18/22 Nitroglycerin Sl Tabs [Nitrostat] 0.4 mg SUBLINGUAL Q5M PRN 04/18/22 04/18/22 Previous Rx's Medication Instructions Recorded Aspirin 81 mg PO DAILY #30 12/15/16 Losartan [Cozaar] 100 mg PO DAILY 30 Days #60 tab 07/04/21 Allergies Allergy/AdvReac Type Severity Reaction Status Date / Time amlodipine Allergy Swelling Verified 04/18/22 09:18 hydralazine Allergy Rash/Hives Verified 04/18/22 09:18 nifedipine Allergy Swelling Verified 04/18/22 09:18 Review of Systems ROS Statement: Those systems with pertinent positive or pertinent negative responses have been documented in the HPI. ROS Other: All systems not noted in ROS Statement are negative. Constitutional: Denies: fever, chills Respiratory: Denies: cough, dyspnea Cardiovascular: Reports: chest pain. Denies: palpitations, edema, syncope Gastrointestinal: Denies: abdominal pain, nausea, vomiting, melena, hematochezia Genitourinary: Denies: dysuria, hematuria Musculoskeletal: Denies: back pain Skin: Denies: rash Neurological: Denies: headache, weakness Past Medical History Past Medical History: Coronary Artery Disease (CAD), Chest Pain / Angina, Hyperlipidemia, Hypertension, Osteoarthritis (OA) Additional Past Medical History / Comment(s): Hx migraines. Hx of sciatica with injections History of Any Multi-Drug Resistant Organisms: None Reported Past Surgical History: Heart Catheterization With Stent, Hernia Repair Additional Past Surgical History / Comment(s): right thumb fx reduction, left thumb was also fractured, did not require surgery. Stent placed to lad December 14, 2016 ([employer]) and rca December 31, 2016 ([facility])both by ROBYN Dowell, follows with Dr. Blood Past Anesthesia/Blood Transfusion Reactions: No Reported Reaction Date of Last Stent Placement:: December 2016 Past Psychological History: No Psychological Hx Reported Smoking Status: Current every day smoker - Past Family History Mother Family Medical History: Hypertension Father Family Medical History: Coronary Artery Disease (CAD) Additional Family Medical History / Comment(s): triple vessel cabg and valve replacement, stents Brother(s) Family Medical History: Coronary Artery Disease (CAD) Additional Family Medical History / Comment(s): valve replacement General Exam Limitations: no limitations General appearance: alert, in no apparent distress Head exam: Present: atraumatic, normocephalic Eye exam: Present: normal appearance. Absent: scleral icterus, conjunctival injection Respiratory exam: Present: normal lung sounds bilaterally. Absent: respiratory distress, wheezes, rales, rhonchi, stridor, accessory muscle use Cardiovascular Exam: Present: regular rate, normal rhythm, normal heart sounds. Absent: systolic murmur, diastolic murmur, rubs, gallop GI/Abdominal exam: Present: soft. Absent: distended, tenderness, guarding, rebound, rigid, mass Extremities exam: Present: normal inspection, normal capillary refill. Absent: pedal edema, calf tenderness Back exam: Present: normal inspection. Absent: CVA tenderness (R), CVA tenderness (L) Neurological exam: Present: alert Skin exam: Present: warm, dry, intact, normal color. Absent: rash Course Vital Signs 04/17/22 04/17/22 04/17/22 21:35 21:46 21:50 Temperature 97.9 F Pulse Rate 51 L 56 L Respiratory 18 Rate Blood Pressure 230/109 230/109 230/99 O2 Sat by Pulse 95 95 95 Oximetry 04/17/22 04/17/22 04/17/22 22:00 22:10 22:20 Temperature Pulse Rate 49 L 48 L 51 L Respiratory Rate Blood Pressure 230/99 240/107 253/112 O2 Sat by Pulse 98 99 99 Oximetry 04/17/22 04/17/22 04/17/22 22:30 22:40 22:50 Temperature Pulse Rate 51 L 49 L 52 L Respiratory Rate Blood Pressure 253/112 234/117 227/106 O2 Sat by Pulse 99 Oximetry 04/17/22 04/17/22 04/17/22 23:00 23:10 23:20 Temperature Pulse Rate 51 L 54 L 69 Respiratory Rate Blood Pressure 227/106 222/102 227/95 O2 Sat by Pulse 100 100 Oximetry 04/17/22 04/17/22 04/17/22 23:30 23:40 23:50 Temperature Pulse Rate 74 59 L 49 L Respiratory Rate Blood Pressure 228/99 226/104 211/102 O2 Sat by Pulse 100 97 100 Oximetry 04/18/22 04/18/22 04/18/22 00:00 00:10 00:20 Temperature Pulse Rate 52 L 50 L 53 L Respiratory Rate Blood Pressure 211/102 222/129 221/96 O2 Sat by Pulse 100 99 100 Oximetry 04/18/22 04/18/22 04/18/22 00:26 00:30 00:40 Temperature Pulse Rate 55 L 60 76 Respiratory Rate Blood Pressure 201/120 197/105 197/105 O2 Sat by Pulse 100 98 97 Oximetry 04/18/22 04/18/22 04/18/22 00:50 01:00 01:10 Temperature Pulse Rate 72 73 80 Respiratory Rate Blood Pressure 159/98 159/98 162/99 O2 Sat by Pulse 98 97 97 Oximetry 04/18/22 04/18/22 04/18/22 01:20 01:30 01:40 Temperature Pulse Rate 71 Respiratory Rate Blood Pressure 190/101 190/101 190/101 O2 Sat by Pulse 99 Oximetry Critical Care Time Critical Care Time: Yes (30 minutes) Disposition Clinical Impression: Hypertensive emergency, MATTHEW (acute kidney injury), Chest pain Disposition: ADMITTED IP TO THIS HOSP Condition: Serious Is patient prescribed a controlled substance at d/c from ED?: No
[2022-04-17 22:05] LABS: Basophils # (A) 0.1 k/uL (0-0.2); Basophils % (A) 1 %; Eosinophils # (A) 0.5 k/uL (0-0.7); Eosinophils % (A) 6 %; HCT 36.5 % (39.0-53.0); HGB 12.6 gm/dL (13.0-17.5); Lymphocytes % (A) 22 %; MCH 30.5 pg (25.0-35.0); MCHC 34.6 g/dL (31.0-37.0); MCV 88.3 fL (80.0-100.0); Mean Platelet Volume 7.1; Monocytes # (A) 0.5 k/uL (0-1.0); Monocytes % (A) 5 %; Neutrophils # (A) 5.6 k/uL (1.3-7.7); Neutrophils % (A) 64 %; Platelet Count 234 k/uL (150-450); RBC 4.13 m/uL (4.30-5.90); RDW 12.9 % (11.5-15.5); WBC 8.8 k/uL (3.8-10.6)
[2022-04-17 22:16] LABS: INR 0.9 (<1.2); Partial Thromboplastin Time 25.6 sec (22.0-30.0); Prothrombin Time 10.3 sec (9.0-12.0)
[2022-04-17 22:18] LABS: Albumin 3.9 g/dL (3.5-5.0); Calcium 8.7 mg/dL (8.4-10.2); Magnesium 1.9 mg/dL (1.6-2.3); Potassium 4.3 mmol/L (3.5-5.1); Total Bilirubin 0.4 mg/dL (0.2-1.3)
[2022-04-17] MEDS ORDERED: HEPARIN SODIUM 1,000 UN/ML (10ML VL) IV ONE (22:30)
[2022-04-17] MEDS ORDERED: cloNIDine HCL 0.2 MG TAB PO STA (22:49)
--- NOTE | 2022-04-17 23:06 | XR ---
EXAMINATION TYPE: XR chest 2V DATE OF EXAM: 04/17/2022 COMPARISON: NONE HISTORY: Chest pain. Smoker. TECHNIQUE: FINDINGS: Heart and mediastinum are within normal limits. Lungs are clear of infiltrate. No heart samantha lure. There are chest leads. Bony thorax is intact. IMPRESSION: No active cardiopulmonary disease. No change.
[2022-04-17] MEDS: HEPARIN SOD,PORK IN 0.45% NACL 25,000 UNIT in 0.45% NACL 1 250ML.BAG IV SCH (23:18)
[2022-04-17] MEDS ORDERED: NITROGLYCERIN SL TABS 0.4 MG TAB SUBLINGUAL PRN (23:40)
[2022-04-17] MEDS ORDERED: NITROGLYCERIN-D5W PMX 50 MG in DEXTROSE/WATER 1 250ML.BAG IV ONE (23:50)
[2022-04-17] MEDS ORDERED: CLOPIDOGREL 75 MG TAB PO STA (23:52)
[2022-04-18] MEDS: MORPHINE SULFATE 4 MG/ML SYRINGE IVP PRN ×4 (00:23→20:15)
[2022-04-18 01:42] LABS: Glucose,Whole Blood 120 mg/dL (70-110)
[2022-04-18] MEDS ORDERED: NALOXONE 0.4 MG/ML 1 ML VIAL IV PRN (02:04)
--- NOTE | 2022-04-18 02:34 | P.HPIM ---
History of Present Illness H&P Date: 04/18/22 Chief Complaint: sudden onset chest pain 57 year old male with refractroy hypertension , CAD s/p stents 2016 patient experienced sudden onset restrosternal chest pain , radiating to the back , with difficulty in breathing, no nausea or vomiting, no profuse sweating no palpitation , he was home relaxing in the evening when this happened, described as worst than his prior heart attack. initially he was acting impatient , rude, threatening to leave if he does not see his ac/dc rewinder immediately as he felt he is going to and being ignored by everyone, then once he calmed down he became apologetic and appreciative. he claims to be compliant with all his meds, however his blood pressure is always running high. he denies any illicit drugs or heavy alcohol consumption, does admit to tobacco smoking. 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 about a year ago had similar episode, but less intense, found to have hyperten sive emergency at home , he took couple nitro which helped a little , then notified EMS and came in here, morphine given en route. inthe ED , EKG was normal except for sinus saud. no acute ST changes. trops negative, CXR normal he was initiated on heparin drip in the ED, and given aspirin and nitro paste. when I saw the patient , his blood pressure was still high , equal on both arms with difference of 10 mmHg, radial pulse was equal bilaterally , and femoral pulses were equal bilaterally . I started the patient on Nitro drip for hypertensive emergency with goal of 25% reduction in his MAP. and transferred the patient to the ICU. I repeated EKG and was still looking unchanged from earlier Review of Systems Pertinent positives as noted in HPI. All other systems were reviewed and are negative Past Medical History Past Medical History: Coronary Artery Disease (CAD), Chest Pain / Angina, Hyperlipidemia, Hypertension, Osteoarthritis (OA) Additional Past Medical History / Comment(s): Hx migraines. Hx of sciatica with injections History of Any Multi-Drug Resistant Organisms: None Reported Past Surgical History: Heart Catheterization With Stent, Hernia Repair Additional Past Surgical History / Comment(s): right thumb fx reduction, left thumb was also fractured, did not require surgery. Stent placed to lad December 14, 2016 ([employer]) and rca December 31, 2016 ([facility])both by ROBYN Dowell, follows with Dr. Blood Past Anesthesia/Blood Transfusion Reactions: No Reported Reaction Date of Last Stent Placement:: December 2016 Past Psychological History: No Psychological Hx Reported Smoking Status: Current every day smoker - Past Family History Mother Family Medical History: Hypertension Father Family Medical History: Coronary Artery Disease (CAD) Additional Family Medical History / Comment(s): triple vessel cabg and valve replacement, stents Brother(s) Family Medical History: Coronary Artery Disease (CAD) Additional Family Medical History / Comment(s): valve replacement Medications and Allergies Home Medications Medication Instructions Recorded Confirmed Type Aspirin 81 mg PO DAILY #30 12/15/16 07/03/21 Rx Atorvastatin [Lipitor] 80 mg PO HS 12/31/16 07/03/21 History Cholecalciferol [Vitamin D3 (25 50 mcg PO DAILY 07/03/21 07/03/21 History Mcg = 1000 Iu)] Metoprolol Tartrate [Lopressor] 50 mg PO BID 07/03/21 07/03/21 History cloNIDine HCL [Catapres] 0.3 mg PO TID 07/03/21 07/03/21 History hydroCHLOROthiazide 25 mg PO DAILY 07/03/21 07/03/21 History Losartan [Cozaar] 100 mg PO DAILY 30 Days #60 tab 07/04/21 Rx Allergies Allergy/AdvReac Type Severity Reaction Status Date / Time amlodipine Allergy Swelling Verified 07/03/21 10:09 hydralazine Allergy Rash/Hives Verified 07/03/21 10:09 nifedipine Allergy Swelling Verified 04/17/22 21:39 Physical Exam Vitals: Vital Signs Temp Pulse Resp BP Pulse Ox 04/17/22 22:50 52 L 227/106 04/17/22 22:40 49 L 234/117 04/17/22 22:30 51 L 253/112 99 04/17/22 22:20 51 L 253/112 99 04/17/22 22:10 48 L 240/107 99 04/17/22 22:00 49 L 230/99 98 04/17/22 21:50 56 L 230/99 95 04/17/22 21:46 230/109 95 04/17/22 21:35 97.9 F 51 L 18 230/109 95 Intake and Output 04/17/22 04/17/22 04/18/22 14:59 22:59 06:59 Other: Weight 80.286 kg Constitutional: acute distress secondary to crushing chest pain Eyes: Anicteric sclerae, moist conjunctiva, Pupils equal round reactive to light ENMT: NC/AT Oropharynx clear, no erythema, or exudates Neck: Supple, no masses, or JVD No carotid bruits No thyromegaly Lungs: Clear to auscultation Clear to percussion Normal respiratory effort, no accessory muscle use Cardiovascular: Heart regular in rate and rhythm, No murmurs, gallops, or rubs No peripheral edema Abdominal: Soft Nontender, no guarding, rebound or rigidity Abdomen moving with respiration Normoactive bowel sounds No hepatomegaly, No splenomegaly No palpable mass No abdominal wall hernia noted Skin: Normal temperature, tone, texture, turgor No induration No subcutaneous nodules No rash, lesions No ulcers Extremities: No digital cyanosis No clubbing Pedal pulses intact and symmetrical Radial pulses intact and symmetrical No calf tenderness Psychiatric: Alert and oriented to person, place and time Appropriate affect fair judgement Neuro Muscles Strength 5/5 in all 4 extremities Sensation to light touch grossly present throughout Cranial nerves II-XII grossly intact No focal sensory deficits Lymphatics: no palpable cervical or supraclavicular , or inguinal lymph nodes Results CBC & Chem 7: 04/17/22 21:50 04/17/22 21:50 Labs: Abnormal Lab Results - Last 24 Hours (Table) 04/17/22 04/17/22 Range/Units 21:50 21:50 RBC 4.13 L (4.30-5.90) m/uL Hgb 12.6 L (13.0-17.5) gm/dL Hct 36.5 L (39.0-53.0) % Sodium 136 L (137-145) mmol/L BUN 53 H (9-20) mg/dL Creatinine 2.69 H (0.66-1.25) mg/dL Total Protein 6.0 L (6.3-8.2) g/dL Assessment and Plan Assessment: hypertensive emergency hypertensive nephrosclerosis unstable angina history of CAD plan CXR no acute pathology EKG , no acute ST changes trops negative MATTHWE patient was started on nitro paste , ASA full dose and heparin drip in the ED. was given IV enalapril in the ED. d/c nitro paste. start Nitro drip for hypertensive emergency titrate for a goal of lowering MAP by 25% , goal MAP 110, systolic blood pressure goal <180 morphine PRN for pain control continue to trend trops one time dose of plavix continue aspirin continue heparin drip cardiology consult to rule out ACS nephrology consult for refractory hypertension resume lopressor , cardura , clonidine , hold losartan and HCTZ no CTA done in the ED due to MATTHEW peripheral pulses are equal in both radial and femoral arteries, blood pressure equal with 10 mmhg difference between left and right arm , Doubt acute dissection at this time , no tachy cardia close monitoring in the ICU for Nitro titration follow up renal function full code
[2022-04-18] MEDS ORDERED: NITROGLYCERIN-D5W PMX 50 MG in DEXTROSE/WATER 1 250ML.BAG IV ONE (02:37)
[2022-04-18] MEDS: cloNIDine HCL 0.1 MG TAB PO SCH ×4 (03:04→22:22)
[2022-04-18] MEDS: ATORVASTATIN 80 MG TAB PO SCH ×2 (03:04→21:34)
[2022-04-18 03:45] LABS: Basophils % (A) 0 %; Eosinophils # (A) 0.1 k/uL (0-0.7); Eosinophils % (A) 1 %; HCT 38.2 % (39.0-53.0); HGB 12.8 gm/dL (13.0-17.5); Lymphocytes # (A) 0.9 k/uL (1.0-4.8); Lymphocytes % (A) 7 %; MCH 29.9 pg (25.0-35.0); MCHC 33.5 g/dL (31.0-37.0); MCV 89.3 fL (80.0-100.0); Mean Platelet Volume 7.2; Monocytes # (A) 0.5 k/uL (0-1.0); Monocytes % (A) 4 %; Neutrophils # (A) 11.3 k/uL (1.3-7.7); Neutrophils % (A) 87 %; Platelet Count 243 k/uL (150-450); RBC 4.28 m/uL (4.30-5.90); RDW 12.7 % (11.5-15.5)
[2022-04-18 03:56] LABS: Calcium 8.7 mg/dL (8.4-10.2); Magnesium 1.8 mg/dL (1.6-2.3); Potassium 4.9 mmol/L (3.5-5.1)
[2022-04-18] MEDS: ONDANSETRON 4 MG/2 ML VIAL IVP PRN ×2 (05:09→10:11)
[2022-04-18] MEDS ORDERED: Magnesium Replacement Protocol 1 EACH MISC MISCELLANE PRN (05:31)
[2022-04-18] MEDS: MAGNESIUM SULFATE-D5W PMX 1 GM in DEXTROSE/WATER 1 100ML.BAG IVPB SCH ×2 (05:42→06:41)
[2022-04-18 06:39] LABS: Partial Thromboplastin Time 42.8 sec (22.0-30.0); Prothrombin Time 10.7 sec (9.0-12.0)
[2022-04-18] MEDS: PANTOPRAZOLE 40 MG TABLET PO SCH (06:41)
[2022-04-18] MEDS: HEPARIN SODIUM 1,000 UN/ML (10ML VL) IV PRN ×2 (06:52→22:26)
[2022-04-18] MEDS ORDERED: ASPIRIN 325 MG TAB PO SCH (09:00)
[2022-04-18 09:04] LABS: Chol/HDL Ratio 5.42 Ratio; LDL Cholesterol,Calculated 145.6 mg/dL (0.0-131.0)
[2022-04-18] MEDS: METOPROLOL TARTRATE 50 MG TAB PO SCH ×2 (09:06→20:39)
[2022-04-18] MEDS: CHOLECALCIFEROL 25 MCG (1000 IU) TABLET PO SCH (09:06)
[2022-04-18] MEDS: DOXAZOSIN 4 MG TAB PO SCH (09:35)
[2022-04-18] MEDS: LABETALOL 5 MG/ML VIAL MDV IVP PRN ×2 (10:22→16:42)
--- NOTE | 2022-04-18 11:02 | P.NPCON ---
History of Present Illness - Reason for Consult acute renal failure - History of Present Illness Patient is a 57-year-old male with history of hypertension diagnosed about 6 years ago. Patient also has a history of coronary artery disease status post stents about 6 years ago. Patient states that he had been following with primary care physician prior to that and was not advised of any elevated blood pressure readings. Patient is admitted to the hospital with history of chest pain. Patient also had some shortness of breath. No history of palpitations or sweating. Blood pressure had been significantly elevated with systolic above 250 on initial admission and diastolic of more than than 1 12 mmHg. Patient denied use of any nonsteroidal anti-inflammatory agents. No history of increased intake of salt-containing foods recently Patient states he has been compliant with his medications and has not missed any doses. Currently maintained on nitro drip. No complaints of chest pain. Troponin is not elevated. No history of drug abuse. History of intolerance to calcium channel blockers including amlodipine and nifedipine with significant lower extremity edema and history of ALLERGIC reaction to hydralazine with oral sores. Serum creatinine was 2.69 on admission and decreased to 2.53 today. Prior creatinine has been 1.2-1.6 mg/dL in 2019 and June 2021 respectively Review of Systems As per HPI, other systems negative Past Medical History Past Medical History: Coronary Artery Disease (CAD), Chest Pain / Angina, Hy perlipidemia, Hypertension, Osteoarthritis (OA) Additional Past Medical History / Comment(s): Hx migraines. Hx of sciatica with injections History of Any Multi-Drug Resistant Organisms: None Reported Past Surgical History: Heart Catheterization With Stent, Hernia Repair Additional Past Surgical History / Comment(s): right thumb fx reduction, left thumb was also fractured, did not require surgery. Stent placed to lad December 14, 2016 ([employer]) and rca December 31, 2016 ([facility])both by ROBYN Dowell, follows with Dr. Blood Past Anesthesia/Blood Transfusion Reactions: No Reported Reaction Date of Last Stent Placement:: December 2016 Past Psychological History: No Psychological Hx Reported Smoking Status: Current every day smoker - Past Family History Mother Family Medical History: Hypertension Father Family Medical History: Coronary Artery Disease (CAD) Additional Family Medical History / Comment(s): triple vessel cabg and valve replacement, stents Brother(s) Family Medical History: Coronary Artery Disease (CAD) Additional Family Medical History / Comment(s): valve replacement Medications and Allergies Home Medications Medication Instructions Recorded Confirmed Type Aspirin 81 mg PO DAILY #30 12/15/16 04/18/22 Rx Atorvastatin [Lipitor] 80 mg PO HS 12/31/16 04/18/22 History Cholecalciferol [Vitamin D3 (25 50 mcg PO DAILY 07/03/21 04/18/22 History Mcg = 1000 Iu)] cloNIDine HCL [Catapres] 0.3 mg PO TID 07/03/21 04/18/22 History hydroCHLOROthiazide 25 mg PO DAILY 07/03/21 04/18/22 History Losartan [Cozaar] 100 mg PO DAILY 30 Days #60 tab 07/04/21 04/18/22 Rx Metoprolol Tartrate [Lopressor] 100 mg PO BID 04/18/22 04/18/22 History Nitroglycerin Sl Tabs [Nitrostat] 0.4 mg SUBLINGUAL Q5M PRN 04/18/22 04/18/22 History Allergies Allergy/AdvReac Type Severity Reaction Status Date / Time amlodipine Allergy Swelling Verified 04/18/22 09:18 hydralazine Allergy Rash/Hives Verified 04/18/22 09:18 nifedipine Allergy Swelling Verified 04/18/22 09:18 Physical Exam Vitals: Vital Signs Temp Pulse Resp BP Pulse Ox 04/18/22 07:28 95 04/18/22 07:00 87 17 184/111 95 04/18/22 06:45 73 18 179/116 95 04/18/22 06:30 84 19 169/107 95 04/18/22 06:10 86 14 163/108 95 04/18/22 06:00 85 19 170/119 95 04/18/22 05:50 94 24 170/119 95 04/18/22 05:40 84 14 180/109 95 04/18/22 05:30 84 20 178/113 94 L 04/18/22 05:20 89 15 178/113 95 04/18/22 05:10 89 15 185/132 95 04/18/22 05:00 103 H 28 H 169/112 95 04/18/22 04:50 64 18 95 04/18/22 04:40 78 20 176/113 94 L 04/18/22 04:30 78 16 150/108 95 04/18/22 04:20 84 23 150/108 95 04/18/22 04:10 82 21 165/103 94 L 04/18/22 04:00 97.8 F 83 18 173/111 93 L 04/18/22 03:50 79 30 H 173/111 95 04/18/22 03:40 82 20 162/109 93 L 04/18/22 03:30 83 17 169/105 93 L 04/18/22 03:20 82 19 169/105 93 L 04/18/22 03:10 80 21 180/116 94 L 04/18/22 02:56 64 15 157/105 95 04/18/22 02:42 79 18 154/99 92 L 04/18/22 02:30 97.7 F 77 15 176/104 94 L 04/18/22 02:29 77 15 176/104 94 L 04/18/22 02:15 71 13 151/97 96 04/18/22 01:40 190/101 04/18/22 01:30 190/101 04/18/22 01:20 71 190/101 99 04/18/22 01:10 80 162/99 97 04/18/22 01:00 73 159/98 97 04/18/22 00:50 72 159/98 98 04/18/22 00:40 76 197/105 97 04/18/22 00:30 60 197/105 98 04/18/22 00:26 55 L 201/120 100 04/18/22 00:20 53 L 221/96 100 04/18/22 00:10 50 L 222/129 99 04/18/22 00:00 52 L 211/102 100 04/17/22 23:50 49 L 211/102 100 04/17/22 23:40 59 L 226/104 97 04/17/22 23:30 74 228/99 100 04/17/22 23:20 69 227/95 100 04/17/22 23:10 54 L 222/102 100 04/17/22 23:00 51 L 227/106 04/17/22 22:50 52 L 227/106 04/17/22 22:40 49 L 234/117 04/17/22 22:30 51 L 253/112 99 04/17/22 22:20 51 L 253/112 99 04/17/22 22:10 48 L 240/107 99 04/17/22 22:00 49 L 230/99 98 04/17/22 21:50 56 L 230/99 95 04/17/22 21:46 230/109 95 04/17/22 21:35 97.9 F 51 L 18 230/109 95 Intake and Output 04/17/22 04/18/22 04/18/22 22:59 06:59 14:59 Intake Total 249.408 54.75 Output Total 250 0 Balance -0.592 54.75 Intake: Intake, IV Titration 249.408 54.75 Amount Heparin Sod,Pork in 0.45% 73.058 NaCl 25,000 unit In 0.45 % NaCl 1 250ml.bag @ 12 UNITS/KG/HR 9.634 mls/hr IV .Q24H [facility] Rx#: [id number] Magnesium Sulfate-D5w Pmx 100 1 gm In Dextrose/Water 1 100ml.bag @ 100 mls/hr IVPB Q1H [facility] Rx#: [id number] Nitroglycerin-D5w Pmx 50 13.325 mg In Dextrose/Water 1 250ml.bag @ 5 MCG/MIN 1.5 mls/hr IV .Q24H [facility] Rx#: [id number] Nitroglycerin-D5w Pmx 50 63.025 54.75 mg In Dextrose/Water 1 250ml.bag @ 5 MCG/MIN 1.5 mls/hr IV .Q24H [facility] Rx#: [id number] Output: Urine 250 0 Other: Voiding Method Urinal Weight 80.286 kg 81.5 kg Patient is awake, comfortable, not in any acute distress Examination of the heart S1 and S2 Examination of the lungs bilateral breath sounds are heard Abdomen is soft nontender Examination lower extremity shows no significant edema [employer] exam grossly intact Results - Lab Results Most recent lab results Calcium 8.7 mg/dL (8.4-10.2) 04/18/22 03:20 Magnesium 1.8 mg/dL (1.6-2.3) 04/18/22 03:20 04/18/22 03:20 04/18/22 03:20 Assessment and Plan Assessment: 1. Mostly associated with uncontrolled hypertension. Rule out retention. 2. Hypertensive emergency currently maintained on nitro drip. Patient has had significant lower extremity edema with amlodipine and significant been and he admitted to having had oral sores with hydralazine. He is currently maintained on clonidine Cardura and metoprolol by mouth. 3. Chronic kidney disease NKF stage III with previous creatinine of 1.6-1.8 mg/dL in June 2021 and as low as 1.2 in August 2019. Etiology is likely n ephrosclerosis need to rule out ischemic nephropathy. 4. Coronary artery disease with history of coronary stents 5. Chest pain with negative troponins currently resolved 6. Intolerance to amlodipine and if he did been secondary to severe lower extremity edema. History of ALLERGIC reaction to hydralazine with oral sores. Plan: Add oral labetalol Continue to wean nitro drip Rule out secondary causes Check ultrasound of the kidneys Check renin and aldosterone level, TSH, next Thank you for the consultation. We'll continue to follow the patient with you during his hospitalization
--- NOTE | 2022-04-18 11:12 | P.CNPUL ---
History of Present Illness Consult date: 04/18/22 Requesting physician: Cherelle Zuleta Reason for consult: chest pain Chief complaint: Chest pain. History of present illness: Pulmonary consult dated 04/18/2022. 57-year-old male with a history of CAD, stents 2, back in 2016, ongoing tobacco use, hypertension, and hyperlipidemia. The patient apparently was seen in the emergency department on April 17, coming in with a complaint of chest pain. The patient did take nitroglycerin, which seemed to ease the pain a bit. In addition, the patient was found have an elevated blood pressure, and, was placed on IV nitroglycerin. Because the IV nitroglycerin cannot be titrated on the floor, the patient was admitted to the intensive care unit, on April 18. Currently, he's on 3 L nasal cannula. He's on nitroglycerin at 50 mcg/m, and heparin via weightbase protocol. Cardiology has been consulted. I am going to add some labetalol for his blood pressure management. The stents that were done in 2017, which is the right coronary artery, and the left anterior descending coronary artery. White count 13, hemoglobin 12.8, hematocrit 38.2, and platelet count 3 or 43,000. PTT is 42.8. Sodium 135, potassium 4.9, chlorides 100, CO2 24, BUN 52, and creatinine 2.53. Troponins were less than 0.012, 3. The patient's chest x-ray did not reveal any acute cardiopulmonary process. Review of Systems REVIEW OF SYSTEMS: CONSTITUTIONAL: [Negative.] NEUROLOGIC: [ Negative.] HEENT: [ Negative.] CARDIAC: Chest pain. PULMONARY: [Negative.] GI: [Negative.] : [Negative.] RHEUMATOLOGIC: [ Negative.] IMMUNOLOGIC: [ Negative.] ENDOCRINE: [Negative. ] DERMATOLOGIC: [Negative.] Past Medical History Past Medical History: Coronary Artery Disease (CAD), Chest Pain / Angina, Hyperlipidemia, Hypertension, Osteoarthritis (OA) Additional Past Medical History / Comment(s): Hx migraines. Hx of sciatica with injections History of Any Multi-Drug Resistant Organisms: None Reported Past Surgical History: Heart Catheterization With Stent, Hernia Repair Additional Past Surgical History / Comment(s): right thumb fx reduction, left thumb was also fractured, did not require surgery. Stent placed to lad December 14, 2016 ([employer]) and rca December 31, 2016 ([facility])both by ROBYN Dowell, follows with Dr. Blood Past Anesthesia/Blood Transfusion Reactions: No Reported Reaction Date of Last Stent Placement:: December 2016 Past Psychological History: No Psychological Hx Reported Smoking Status: Current every day smoker - Past Family History Mother Family Medical History: Hypertension Father Family Medical History: Coronary Artery Disease (CAD) Additional Family Medical History / Comment(s): triple vessel cabg and valve replacement, stents Brother(s) Family Medical History: Coronary Artery Disease (CAD) Additional Family Medical History / Comment(s): valve replacement Medications and Allergies Home Medications Medication Instructions Recorded Confirmed Type Aspirin 81 mg PO DAILY #30 12/15/16 04/18/22 Rx Atorvastatin [Lipitor] 80 mg PO HS 12/31/16 04/18/22 History Cholecalciferol [Vitamin D3 (25 50 mcg PO DAILY 07/03/21 04/18/22 History Mcg = 1000 Iu)] cloNIDine HCL [Catapres] 0.3 mg PO TID 07/03/21 04/18/22 History hydroCHLOROthiazide 25 mg PO DAILY 07/03/21 04/18/22 History Losartan [Cozaar] 100 mg PO DAILY 30 Days #60 tab 07/04/21 04/18/22 Rx Metoprolol Tartrate [Lopressor] 100 mg PO BID 04/18/22 04/18/22 History Nitroglycerin Sl Tabs [Nitrostat] 0.4 mg SUBLINGUAL Q5M PRN 04/18/22 04/18/22 History Allergies Allergy/AdvReac Type Severity Reaction Status Date / Time amlodipine Allergy Swelling Verified 04/18/22 09:18 hydralazine Allergy Rash/Hives Verified 04/18/22 09:18 nifedipine Allergy Swelling Verified 04/18/22 09:18 Physical Exam Osteopathic Statement: *. No significant issues noted on an osteopathic structural exam other than those noted in the History and Physical/Consult. Vitals: Vital Signs Temp Pulse Resp BP Pulse Ox 04/18/22 07:28 95 04/18/22 07:00 87 17 184/111 95 04/18/22 06:45 73 18 179/116 95 04/18/22 06:30 84 19 169/107 95 04/18/22 06:10 86 14 163/108 95 04/18/22 06:00 85 19 170/119 95 04/18/22 05:50 94 24 170/119 95 04/18/22 05:40 84 14 180/109 95 04/18/22 05:30 84 20 178/113 94 L 04/18/22 05:20 89 15 178/113 95 04/18/22 05:10 89 15 185/132 95 04/18/22 05:00 103 H 28 H 169/112 95 04/18/22 04:50 64 18 95 04/18/22 04:40 78 20 176/113 94 L 04/18/22 04:30 78 16 150/108 95 04/18/22 04:20 84 23 150/108 95 04/18/22 04:10 82 21 165/103 94 L 04/18/22 04:00 97.8 F 83 18 173/111 93 L 04/18/22 03:50 79 30 H 173/111 95 04/18/22 03:40 82 20 162/109 93 L 04/18/22 03:30 83 17 169/105 93 L 04/18/22 03:20 82 19 169/105 93 L 04/18/22 03:10 80 21 180/116 94 L 04/18/22 02:56 64 15 157/105 95 04/18/22 02:42 79 18 154/99 92 L 04/18/22 02:30 97.7 F 77 15 176/104 94 L 04/18/22 02:29 77 15 176/104 94 L 04/18/22 02:15 71 13 151/97 96 04/18/22 01:40 190/101 04/18/22 01:30 190/101 04/18/22 01:20 71 190/101 99 04/18/22 01:10 80 162/99 97 04/18/22 01:00 73 159/98 97 04/18/22 00:50 72 159/98 98 04/18/22 00:40 76 197/105 97 04/18/22 00:30 60 197/105 98 04/18/22 00:26 55 L 201/120 100 04/18/22 00:20 53 L 221/96 100 04/18/22 00:10 50 L 222/129 99 04/18/22 00:00 52 L 211/102 100 04/17/22 23:50 49 L 211/102 100 04/17/22 23:40 59 L 226/104 97 04/17/22 23:30 74 228/99 100 04/17/22 23:20 69 227/95 100 04/17/22 23:10 54 L 222/102 100 04/17/22 23:00 51 L 227/106 04/17/22 22:50 52 L 227/106 04/17/22 22:40 49 L 234/117 04/17/22 22:30 51 L 253/112 99 04/17/22 22:20 51 L 253/112 99 04/17/22 22:10 48 L 240/107 99 04/17/22 22:00 49 L 230/99 98 04/17/22 21:50 56 L 230/99 95 04/17/22 21:46 230/109 95 04/17/22 21:35 97.9 F 51 L 18 230/109 95 Intake and Output 04/17/22 04/18/22 04/18/22 22:59 06:59 14:59 Intake Total 249.408 54.75 Output Total 250 0 Balance -0.592 54.75 Intake: Intake, IV Titration 249.408 54.75 Amount Heparin Sod,Pork in 0.45% 73.058 NaCl 25,000 unit In 0.45 % NaCl 1 250ml.bag @ 12 UNITS/KG/HR 9.634 mls/hr IV .Q24H [facility] Rx#: [id number] Magnesium Sulfate-D5w Pmx 100 1 gm In Dextrose/Water 1 100ml.bag @ 100 mls/hr IVPB Q1H [facility] Rx#: [id number] Nitroglycerin-D5w Pmx 50 13.325 mg In Dextrose/Water 1 250ml.bag @ 5 MCG/MIN 1.5 mls/hr IV .Q24H [facility] Rx#: [id number] Nitroglycerin-D5w Pmx 50 63.025 54.75 mg In Dextrose/Water 1 250ml.bag @ 5 MCG/MIN 1.5 mls/hr IV .Q24H [facility] Rx#: [id number] Output: Urine 250 0 Other: Voiding Method Urinal Weight 80.286 kg 81.5 kg No acute distress, oriented 3. Currently on 3 L of oxygen. HEENT examination is grossly unremarkable. Neck supple. Full range of motion. No adenopathy thyromegaly or neck vein distention. Cardiovascular examination reveals regular rhythm rate. S1-S2 normal. No S3 or S4. No discernible murmur noted. Heart rate 87 bpm. Lungs reveal clear breath sounds. Breath sounds are equal bilaterally. No adventitious lung sounds including wheezes rhonchi or crackles. 3 L saturation is 95%. Abdomen soft bowel sounds are heard. No masses or tenderness. Extremities are intact. No cyanosis clubbing or edema. Skin is without rash or lesion. Neurologic examination is brief but nonfocal. Results - Laboratory Findings CBC and BMP: 04/18/22 03:20 04/18/22 03:20 PT/INR, D-dimer PT 10.7 sec (9.0-12.0) 04/18/22 05:43 INR 1.0 (<1.2) 04/18/22 05:43 Abnormal lab findings: Abnormal Labs 04/17/22 04/17/22 04/18/22 21:50 21:50 01:40 WBC RBC 4.13 L Hgb 12.6 L Hct 36.5 L Neutrophils # Lymphocytes # APTT Sodium 136 L BUN 53 H Creatinine 2.69 H Glucose POC Glucose (mg/dL) 120 H Total Protein 6.0 L Cholesterol LDL Cholesterol, Calc HDL Cholesterol 04/18/22 04/18/22 04/18/22 03:20 03:20 05:43 WBC 13.0 H RBC 4.28 L Hgb 12.8 L Hct 38.2 L Neutrophils # 11.3 H Lymphocytes # 0.9 L APTT 42.8 H Sodium 135 L BUN 52 H Creatinine 2.53 H Glucose 153 H POC Glucose (mg/dL) Total Protein Cholesterol LDL Cholesterol, Calc HDL Cholesterol 04/18/22 05:43 WBC RBC Hgb Hct Neutrophils # Lymphocytes # APTT Sodium BUN Creatinine Glucose POC Glucose (mg/dL) Total Protein Cholesterol 205.00 H LDL Cholesterol, Calc 145.6 H HDL Cholesterol 37.80 L - Diagnostic Findings Chest x-ray: image reviewed Assessment and Plan Assessment: Acute severe chest pain, rule out acute coronary syndrome. History of CAD, stent placements 2, and 2017, to the right coronary artery, and left anterior descending coronary artery. Ongoing tobacco use with nicotine addiction. History of hypertension. History of hyperlipidemia. History of osteoarthritis. History of migraine cephalgia. Plan: Plan dated 04/18/2022. I will add some labetalol, 10-20 mg IV push, every 4 hours, for a systolic blood pressure greater than 160, or a mean pressure greater than 100. The patient will be seen by cardiology later today. We will continue to follow make recommendations along the way. Prognosis is certainly guarded. The patient may be in stool for a repeat cardiac catheterization. Time with Patient: Greater than 30
[2022-04-18] MEDS ORDERED: amLODIPine 10 MG TAB PO ONE (11:30)
--- NOTE | 2022-04-18 11:53 | P.PN ---
Subjective Progress Note Date: 04/18/22 Patient states he is doing "not well." He does not further specify about any symptoms during my interview today. Nursing tells me that patient has nausea, refractory to Zofran. Patient has been started on labetalol, continued on clonidine, doxazosin. Nitro drip has been down titrated from 50 to 10 mcg/min. Blood pressures remained quite high. Kidney function is improving but still not back to normal. Gen: awake, alert HEENT: normocephalic, atraumatic, good hearing acuity, moist mucous membranes Resp: good air exchange, breathing comfortably with no accessory muscle use CVS: good distal perfusion x 4, GI: soft, NTTP, ND : no SPT, no CVAT, lindsey catheter not present MSK: no pitting edema, no clubbing Neuro: non-focal, moving all extremities Psych: cooperative, euthymic mood Assessment/plan: Hypertensive emergency Hypertensive nephrosclerosis Unstable angina Acute Kidney Injury History of CAD -Admit to ICU, telemetry -cardiology, nephrology, and pulmonology consults appreciated -Echo, pending -Renal/Bladder US, pending -continue ASA/statin -continue heparin, but low threshold to suspend given negative trops and non- ischemic EKG -BP control -labetalol 200mg BID + 10mg IVP q4h PRN -clonidine 0.3mg TID -amlodipine 5mg BID -metoprolol 50mg BID -doxazosin 8mg daily -nitro gtt, downtitrate as able -can consider addition of imdur for additional BP control -Nausea control -zofran PRN -phenergan PRN -PPI Patient is full code DVT PPx is covered with therapeutic heparin Objective - Vital Signs Vital signs: Vital Signs Temp 98.1 F 04/18/22 08:00 Pulse 78 04/18/22 11:15 Resp 17 04/18/22 11:15 BP 206/112 04/18/22 11:15 Pulse Ox 95 04/18/22 11:15 FiO2 Intake & Output 04/17/22 04/18/22 04/18/22 18:59 06:59 18:59 Intake Total 249.408 54.75 Output Total 250 0 Balance -0.592 54.75 Weight 81.5 kg Intake: Intake, IV Titration 249.408 54.75 Amount Heparin Sod,Pork in 0.45% 73.058 NaCl 25,000 unit In 0.45 % NaCl 1 250ml.bag @ 12 UNITS/KG/HR 9.634 mls/hr IV .Q24H [facility] Rx#: [id number] Magnesium Sulfate-D5w Pmx 100 1 gm In Dextrose/Water 1 100ml.bag @ 100 mls/hr IVPB Q1H [facility] Rx#: [id number] Nitroglycerin-D5w Pmx 50 13.325 mg In Dextrose/Water 1 250ml.bag @ 5 MCG/MIN 1.5 mls/hr IV .Q24H [facility] Rx#: [id number] Nitroglycerin-D5w Pmx 50 63.025 54.75 mg In Dextrose/Water 1 250ml.bag @ 5 MCG/MIN 1.5 mls/hr IV .Q24H [facility] Rx#: [id number] Output: Urine 250 0 Other: Voiding Method Urinal - Labs CBC & Chem 7: 04/18/22 03:20 04/18/22 03:20 Labs: Abnormal Lab Results - Last 24 Hours (Table) 04/17/22 04/17/22 04/18/22 Range/Units 21:50 21:50 01:40 WBC (3.8-10.6) k/uL RBC 4.13 L (4.30-5.90) m/uL Hgb 12.6 L (13.0-17.5) gm/dL Hct 36.5 L (39.0-53.0) % Neutrophils # (1.3-7.7) k/uL Lymphocytes # (1.0-4.8) k/uL APTT (22.0-30.0) sec Sodium 136 L (137-145) mmol/L BUN 53 H (9-20) mg/dL Creatinine 2.69 H (0.66-1.25) mg/dL Glucose (74-99) mg/dL POC Glucose (mg/dL) 120 H (70-110) mg/dL Total Protein 6.0 L (6.3-8.2) g/dL Cholesterol (0.00-200.00) mg/dL LDL Cholesterol, Calc (0.0-131.0) mg/dL HDL Cholesterol (40.00-60.00) mg/dL 04/18/22 04/18/2204/18/22 Range/Units 03:20 03:20 05:43 WBC 13.0 H (3.8-10.6) k/uL RBC 4.28 L (4.30-5.90) m/uL Hgb 12.8 L (13.0-17.5) gm/dL Hct 38.2 L (39.0-53.0) % Neutrophils # 11.3 H (1.3-7.7) k/uL Lymphocytes # 0.9 L (1.0-4.8) k/uL APTT 42.8 H (22.0-30.0) sec Sodium 135 L (137-145) mmol/L BUN 52 H (9-20) mg/dL Creatinine 2.53 H (0.66-1.25) mg/dL Glucose 153 H (74-99) mg/dL POC Glucose (mg/dL) (70-110) mg/dL Total Protein (6.3-8.2) g/dL Cholesterol (0.00-200.00) mg/dL LDL Cholesterol, Calc (0.0-131.0) mg/dL HDL Cholesterol (40.00-60.00) mg/dL 04/18/22 Range/Units 05:43 WBC (3.8-10.6) k/uL RBC (4.30-5.90) m/uL Hgb (13.0-17.5) gm/dL Hct (39.0-53.0) % Neutrophils # (1.3-7.7) k/uL Lymphocytes # (1.0-4.8) k/uL APTT (22.0-30.0) sec Sodium (137-145) mmol/L BUN (9-20) mg/dL Creatinine (0.66-1.25) mg/dL Glucose (74-99) mg/dL POC Glucose (mg/dL) (70-110) mg/dL Total Protein (6.3-8.2) g/dL Cholesterol 205.00 H (0.00-200.00) mg/dL LDL Cholesterol, Calc 145.6 H (0.0-131.0) mg/dL HDL Cholesterol 37.80 L (40.00-60.00) mg/dL
[2022-04-18] MEDS ORDERED: LABETALOL 5 MG/ML VIAL MDV IVP SCH (12:00)
[2022-04-18] MEDS: LABETALOL 200 MG TAB PO SCH ×2 (12:10→20:39)
[2022-04-18] MEDS: NITROPRUSSIDE 50 MG in DEXTROSE 5% IN WATER 250 ML IV SCH ×6 (13:11→23:14)
[2022-04-18] MEDS: PROCHLORPERAZINE INJ 10 MG/2 ML VIAL IVP PRN ×2 (13:58→20:04)
[2022-04-18] MEDS: SODIUM CHLORIDE 0.9% 1,000 ML IV SCH ×2 (13:59→22:57)
--- NOTE | 2022-04-18 14:37 | US ---
EXAMINATION TYPE: US kidneys/renal and bladder DATE OF EXAM: 04/18/2022 COMPARISON: 03/11/2018 CLINICAL HISTORY: rui. EXAM MEASUREMENTS: Right Kidney: 10.0 x 4.4 x 4.1 cm Left Kidney: Not visualized Exam severely limited by overyling bowel gas. Patient was actively vomiting during exam Right Kidney: Limited view, portions visualized appear within normal limits Left Kidney: Obscured by overlying bowel gas Bladder: wnl Bilateral Jets seen: Right jet visualized, left jet visualized The right kidney demonstrates no evidence for hydronephrosis at this point in time. No nephrolithias is is seen. No masses are identified. The left kidney is not visualized on today's exam. The urin jeri bladder is anechoic. IMPRESSION: 1. Left kidney is not visualized. Visualized portion of the right kidney demonstrates no abnormality.
[2022-04-18] MEDS ORDERED: METOPROLOL TARTRATE 50 MG TAB PO ONE (15:00)
[2022-04-18] MEDS: ASPIRIN 81 MG PO SCH (15:31)
[2022-04-18] MEDS ORDERED: amLODIPine 5 MG TAB PO SCH (21:00)
[2022-04-18] MEDS ORDERED: LORazepam 1 MG/0.5 ML VIAL IV PRN (21:59)
--- NOTE | 2022-04-18 22:21 | CONS ---
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 He smokes at least 1 or more packs a day and also drinks alcohol. He is here mainly because of a significant chest discomfort that he experienced about 2 hours prior to arrival last night. He is known to have CAD, underwent stenting of LAD and RCA performed by me in 2016. He sees Dr. Blood on a regular basis in the office and last saw him very recently and was doing well at that time. His blood pressure has not been under the best control. At the time of my evaluation, he is resting comfortably, but the blood pressure is elevated at 180/110. He is on a nitroglycerin drip and has developed significant nausea with this. He has no chest pain at this time. His troponins are normal. EKG revealed a sinus bradycardia without significant ST-segment changes. His 2 sets of troponins are normal. Blood pressure control is still not optimal. PAST MEDICAL HISTORY: Remarkable for CAD with stenting in December 2016 of RCA and LAD. He is known to have preserved LV function on echo from 2020. He has history of smoking, COPD, migraine headaches, degenerative joint disease, and hypertension under suboptimal control. He has had in addition to CAD and multivessel stenting, hernia repair as well. MEDICATIONS: Medications at home include, 1. Metoprolol tartrate 50 mg b.i.d. 2. Clonidine 0.3 mg t.i.d. 3. Hydrochlorothiazide 25 mg daily. 4. Aspirin. 5. Losartan. ALLERGIES: He has allergy or intolerance or side effects of lower extremity edema with amlodipine and nifedipine. PHYSICAL EXAMINATION: VITAL SIGNS: On examination, blood pressure is 180/110, pulse rate is about 90 per minute regular. HEENT: Unremarkable. Fundus was not examined by me. NECK: Supple. There is 1 cm JVD. No carotid bruit. HEART: Reveals S1, S2 with a short systolic murmur at left sternal border. LUNGS: Reveal bilateral diminished air entry. ABDOMEN: Soft, nontender. EXTREMITIES: Lower extremities revealed palpable pulses. No edema. CENTRAL NERVOUS SYSTEM: Normal. IMPRESSION: 1. Accelerated hypertension. 2. Coronary artery disease with prior two-vessel stenting. 3. Chest pain, but no troponin elevation could be related to accelerated hypertension. 4. History of smoking and chronic obstructive pulmonary disease. RECOMMENDATIONS: I am recommending that we will give him IV labetalol 10 mg and also amlodipine 10 mg p.o. and labetalol 200 mg b.i.d. We will decrease the nitroglycerin drip, which may be the cause of his severe nausea at this time. I will reduce it to 10 mcg and discontinue it as soon as his blood pressure shows some improvement. Hopefully we can control his blood pressure without the need for intravenous Nipride. I will re- evaluate him after EKG and troponin level. We will obtain a limited echo as well and based on clinical course, I will make further recommendations. I discussed my thoughts in detail with the patient and family. Thank you very much for the consult. HUI / CYN: [id number] /
[2022-04-18] MEDS: HEPARIN SOD,PORK IN 0.45% NACL 25,000 UNIT in 0.45% NACL 1 250ML.BAG IV SCH (22:41)
[2022-04-19] MEDS: ONDANSETRON 4 MG/2 ML VIAL IVP PRN (01:34)
[2022-04-19] MEDS: MORPHINE SULFATE 4 MG/ML SYRINGE IVP PRN (01:40)
[2022-04-19 03:55] LABS: Basophils % (A) 0 %; Eosinophils % (A) 0 %; HCT 38.5 % (39.0-53.0); HGB 12.5 gm/dL (13.0-17.5); Lymphocytes # (A) 0.7 k/uL (1.0-4.8); Lymphocytes % (A) 5 %; MCH 29.3 pg (25.0-35.0); MCHC 32.5 g/dL (31.0-37.0); MCV 90.2 fL (80.0-100.0); Mean Platelet Volume 7.3; Monocytes # (A) 0.7 k/uL (0-1.0); Monocytes % (A) 5 %; Neutrophils # (A) 11.7 k/uL (1.3-7.7); Neutrophils % (A) 88 %; Platelet Count 204 k/uL (150-450); RBC 4.27 m/uL (4.30-5.90); WBC 13.4 k/uL (3.8-10.6)
[2022-04-19 04:14] LABS: Calcium 8.4 mg/dL (8.4-10.2); Magnesium 2.1 mg/dL (1.6-2.3); Potassium 4.5 mmol/L (3.5-5.1)
[2022-04-19] MEDS: NITROPRUSSIDE 50 MG in DEXTROSE 5% IN WATER 250 ML IV SCH ×2 (06:02)
[2022-04-19] MEDS: HEPARIN SODIUM 1,000 UN/ML (10ML VL) IV PRN (06:36)
[2022-04-19] MEDS ORDERED: amLODIPine 10 MG TAB PO SCH (09:00)
[2022-04-19] MEDS: ASPIRIN 81 MG PO SCH (09:19)
[2022-04-19] MEDS: METOPROLOL TARTRATE 50 MG TAB PO SCH ×3 (09:19→21:59)
[2022-04-19] MEDS: CHOLECALCIFEROL 25 MCG (1000 IU) TABLET PO SCH (09:19)
[2022-04-19] MEDS: PANTOPRAZOLE 40 MG TABLET PO SCH (09:19)
[2022-04-19] MEDS: cloNIDine HCL 0.1 MG TAB PO SCH ×3 (09:19→23:12)
[2022-04-19] MEDS: HEPARIN SODIUM,PORCINE/PF 5,000 UNIT/0.5 ML SYRINGE SQ SCH ×2 (09:22→20:46)
[2022-04-19] MEDS: DOXAZOSIN 4 MG TAB PO SCH (09:22)
--- NOTE | 2022-04-19 10:30 | P.PN ---
Subjective Patient is seen for follow-up for uncontrolled hypertension and acute kidney injury. Patient remains on nipride drip He has intolerance to calcium channel blockers with significant lower extremity edema however he is maintained on amlodipine here and seems to be doing okay. Patient is ALLERGIC to hydralazine with development of oral sores. Currently maintained on Lopressor, clonidine and Cardura. Patient was on Cozaar prior to admission but this was held due to acute kidney injury. Since blood pressure remains elevated I will resume the angiotensin receptor blockers. No significant complaints today. Objective - Vital Signs Vital signs: Vital Signs Temp 98 F 04/19/22 08:00 Pulse 95 04/19/22 09:30 Resp 16 04/19/22 09:30 BP 147/97 04/19/22 09:30 Pulse Ox 92 L 04/19/22 09:30 FiO2 36 04/18/22 14:19 Intake & Output 04/18/22 04/19/22 04/19/22 18:59 06:59 18:59 Intake Total 768.310 8360.449 274.328 Output Total 625 300 150 Balance 47.228 1153.449 124.328 Intake: IV 400 840 30 Sodium Chloride 0.9% 1, 400 840 30 000 ml @ 100 mls/hr IV . Q10H [facility] Rx#:[id number] Intake, IV Titration 272.228 613.449 124.328 Amount Heparin Sod,Pork in 0.45% 73.997 157.170 NaCl 25,000 unit In 0.45 % NaCl 1 250ml.bag @ 12 UNITS/KG/HR 9.634 mls/hr IV .Q24H [facility] Rx#: [id number] Nitroglycerin-D5w Pmx 50 54.75 mg In Dextrose/Water 1 250ml.bag @ 5 MCG/MIN 1.5 mls/hr IV .Q24H [facility] Rx#: [id number] Nitroprusside 50 mg In 43.481 456.279 124.328 Dextrose 5% in Water 250 ml @ Titrate IV .Q0M [facility] Rx#:[id number] Sodium Chloride 0.9% 1, 100 000 ml @ 100 mls/hr IV . 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 intact - Labs CBC & Chem 7: 04/19/22 03:21 04/19/22 03:21 Labs: Abnormal Lab Results - Last 24 Hours (Table) 04/18/22 04/18/22 04/19/22 Range/Units 12:23 20:38 03:21 WBC (3.8-10.6) k/uL RBC (4.30-5.90) m/uL Hgb (13.0-17.5) gm/dL Hct (39.0-53.0) % Neutrophils # (1.3-7.7) k/uL Lymphocytes # (1.0-4.8) k/uL APTT 97.1 H 33.8 H (22.0-30.0) sec Sodium 135 L (137-145) mmol/L BUN 59 H (9-20) mg/dL Creatinine 2.28 H (0.66-1.25) mg/dL Glucose 132 H (74-99) mg/dL 04/19/22 04/19/22 04/19/22 Range/Units 03:21 03:21 05:39 WBC 13.4 H (3.8-10.6) k/uL RBC 4.27 L (4.30-5.90) m/uL Hgb 12.5 L (13.0-17.5) gm/dL Hct 38.5 L (39.0-53.0) % Neutrophils # 11.7 H (1.3-7.7) k/uL Lymphocytes # 0.7 L (1.0-4.8) k/uL APTT 65.9 H 41.6 H (22.0-30.0) sec Sodium (137-145) mmol/L BUN (9-20) mg/dL Creatinine (0.66-1.25) mg/dL Glucose (74-99) mg/dL Assessment and Plan Assessment: 1. Acute kidney injury mostly associated with uncontrolled hypertension. Check UA. Ultrasound does not show obstruction on the right kidney. Left kidney not visualized due to bowel gas. Cozaar on hold. 2. Hypertensive emergency currently maintained on nitroprusside drip. Patient has had significant lower extremity edema with amlodipine and he admitted to having had oral sores with hydralazine. He is currently maintained on clonidine Cardura and metoprolol by mouth. Amlodipine was added yesterday and so far patient is tolerating it OK 3. Chronic kidney disease NKF stage III with previous creatinine of 1.6-1.8 mg/dL in June 2021 and as low as 1.2 in August 2019. Etiology is likely nephrosclerosis need to rule out ischemic nephropathy. 4. Coronary artery disease with history of coronary stents 5. Chest pain with negative troponins currently resolved 6. Intolerance to amlodipine as outpatient secondary to severe lower extremity edema. History of ALLERGIC reaction to hydralazine with oral sores. Plan: Follow-up on serum aldosterone and renin levels. Patient will need renal angiogram down the road once renal function has improved Restart Cozaar Check UA Try to wean down nipride drip Repeat labs in a.m.
--- NOTE | 2022-04-19 10:56 | CA ---
Transthoracic Echo Report Name: Elpidio Alvarez Age: 57 Gender: M : 1965 Exam Date: 04/19/2022 07:37 Exam Location: [facility] Ht (in): 67 Wt (lb): 179 Ordering Physician: Diana Dowell MD ([id number]) Attending/Referring Phys: Polishing Wheel Setter Penny Meyer RDCS Procedure CPT: Indications: Chest Pain Cardiac Hx: Technical Quality: Good Contrast 1: Total Dose (mL): Contrast 2: Total Dose (mL): MEASUREMENTS (Male / Female) Normal Values 2D ECHO LV Diastolic Diameter PLAX 3.9 cm 4.2 - 5.9 / 3.9 - 5.3 cm LV Systolic Diameter PLAX 2.6 cm IVS Diastolic Thickness 1.6 cm 0.6 - 1.0 / 0.6 - 0.9 cm LVPW Diastolic Thickness 1.4 cm 0.6 - 1.0 / 0.6 - 0.9 cm LV Relative Wall Thickness 0.7 RV Internal Dim ED PLAX 3.0 cm LA Systolic Diameter LX 4.0 cm 3.0 - 4.0 / 2.7 - 3.8 cm LA Volume 53.3 cm??? 18 - 58 / 22 - 52 cm??? M-MODE Aortic Root Diameter MM 3.3 cm MV E Point Septal Separation 0.7 cm AV Cusp Separation MM 2.4 cm DOPPLER AV Peak Velocity 168.1 cm/s AV Peak Gradient 11.3 mmHg MV Area PHT 4.7 cm??? Mitral E Point Velocity 76.1 cm/s Mitral A Point Velocity 122.5 cm/s Mitral E to A Ratio 0.6 MV Deceleration Time 160.6 ms MV E' Velocity 6.2 cm/s Mitral E to MV E' Ratio 12.4 FINDINGS Left Ventricle Left ventricular ejection fraction is estimated at 60-65 %. Left ventricular cavity size normal. Moderate concentric left ventricular hypertrophy. Right Ventricle Normal right ventricular size and function. Unable to estimate the right ventricular systolic pressure. Right Atrium Normal right atrial size. Left Atrium Normal left atrial size. No evidence for an atrial septal defect. Mitral Valve Structurally normal mitral valve. No mitral stenosis, regurgitation or prolapse. Aortic Valve Trileaflet aortic valve. No aortic valve stenosis or regurgitation. Tricuspid Valve Structurally normal tricuspid valve. Pulmonic Valve Trace to mild pulmonic regurgitation. Pericardium Normal pericardium. No pericardial effusion. Aorta Normal size aortic root and proximal ascending aorta. CONCLUSIONS Normal left ventricular dimension and systolic function Moderate concentric left ventricular hypertrophy Normal intracardiac valves Previewed by: Dr. Hector De La Cruz MD (Electronically Signed) Final Date: 19 April 2022 10:55
--- NOTE | 2022-04-19 11:39 | P.PN ---
Subjective Progress Note Date: 04/19/22 Principal diagnosis: Chest pain Pulmonary consult dated 04/18/2022. 57-year-old male with a history of CAD, stents 2, back in 2017, ongoing tobacco use, hypertension, and hyperlipidemia. The patient apparently was seen in the emergency department on April 17, coming in with a complaint of chest pain. The patient did take nitroglycerin, which seemed to ease the pain a bit. In addition, the patient was found have an elevated blood pressure, and, was placed on IV nitroglycerin. Because the IV nitroglycerin cannot be titrated on the floor, the patient was admitted to the intensive care unit, on April 18. Currently, he's on 3 L nasal cannula. He's on nitroglycerin at 50 mcg/m, and heparin via weightbase protocol. Cardiology has been consulted. I am going to add some labetalol for his blood pressure management. The stents that were done in 2017, which is the right coronary artery, and the left anterior descending coronary artery. White count 13, hemoglobin 12.8, hematocrit 38.2, and platelet count 3 or 43,000. PTT is 42.8. Sodium 135, potassium 4.9, chlorides 100, CO2 24, BUN 52, and creatinine 2.53. Troponins were less than 0.012, 3. The patient's chest x-ray did not reveal any acute cardiopulmonary process. Progress note dated 04/19/2022. 57-year-old male, seen again in room 252. He was seen in consultation yesterday. He was admitted with chest pain. Currently, he's on 3 L of oxygen. He is getting heparin via weightbase protocol. He was placed on Knipe ride by cardiology, arti 1.6 mcg/kg/m. The patient's getting saline at 10 mL an hour. White count 13.4, hemoglobin 12.5, hematocrit 38.5, and platelet count 204,000. Sodium 135, potassium 4.5, chlorides 101, CO2 22, BUN 59, creatinine 2.28. Most recent PTT is 41.6. Objective - Vital Signs Vital signs: Vital Signs Temp 98 F 04/19/22 08:00 Pulse 76 04/19/22 11:00 Resp 16 04/19/22 11:00 BP 98/70 04/19/22 11:00 Pulse Ox 95 04/19/22 11:00 FiO2 36 04/18/22 14:19 Intake & Output 04/18/22 04/19/22 04/19/22 18:59 06:59 18:59 Intake Total 447.836 0299.449 392.478 Output Total 625 300 150 Balance 47.228 1153.449 242.478 Intake: IV 400 840 140 Sodium Chloride 0.9% 1, 400 840 140 000 ml @ 100 mls/hr IV . Q10H [facility] Rx#:[id number] Intake, IV Titration 272.228 613.449 132.478 Amount Heparin Sod,Pork in 0.45% 73.997 157.170 NaCl 25,000 unit In 0.45 % NaCl 1 250ml.bag @ 12 UNITS/KG/HR 9.634 mls/hr IV .Q24H [facility]CLUDE 234 BEDS AT [facility] Rx#: [id number] Nitroglycerin-D5w Pmx 50 54.75 mg In Dextrose/Water 1 250ml.bag @ 5 MCG/MIN 1.5 mls/hr IV .Q24H [facility] Rx#: [id number] Nitroprusside 50 mg In 43.481 456.279 132.478 Dextrose 5% in Water 250 ml @ Titrate IV .Q0M COUNTS INCLUDE 234 BEDS AT THE [facility] Rx#:[id number] Sodium Chloride 0.9% 1, 100 000 ml @ 100 mls/hr IV . Q10H COUNTS INCLUDE 234 BEDS AT THE [facility] Rx#:[id number] Oral 120 Output: Urine 325 300 150 Emesis 300 Other: Voiding Method Urinal # Voids 1 1 - Exam No acute distress, oriented 3. Currently on 3 L of oxygen. HEENT examination is grossly unremarkable. Neck supple. Full range of motion. No adenopathy thyromegaly or neck vein distention. Cardiovascular examination reveals regular rhythm rate. S1-S2 normal. No S3 or S4. No discernible murmur noted. Heart rate 76 bpm. Lungs reveal clear breath sounds. Breath sounds are equal bilaterally. No adventitious lung sounds including wheezes rhonchi or crackles. 3 L saturation is 95%. Abdomen soft bowel sounds are heard. No masses or tenderness. Extremities are intact. No cyanosis clubbing or edema. Skin is without rash or lesion. Neurologic examination is brief but nonfocal. - Labs CBC & Chem 7: 04/19/22 03:21 04/19/22 03:21 Labs: Abnormal Lab Results - Last 24 Hours (Table) 04/18/22 04/18/22 04/19/22 Range/Units 12:23 20:38 03:21 WBC (3.8-10.6) k/uL RBC (4.30-5.90) m/uL Hgb (13.0-17.5) gm/dL Hct (39.0-53.0) % Neutrophils # (1.3-7.7) k/uL Lymphocytes # (1.0-4.8) k/uL APTT 97.1 H 33.8 H (22.0-30.0) sec Sodium 135 L (137-145) mmol/L BUN 59 H (9-20) mg/dL Creatinine 2.28 H (0.66-1.25) mg/dL Glucose 132 H (74-99) mg/dL 04/19/22 04/19/22 04/19/22 Range/Units 03:21 03:21 05:39 WBC 13.4 H (3.8-10.6) k/uL RBC 4.27 L (4.30-5.90) m/uL Hgb 12.5 L (13.0-17.5) gm/dL Hct 38.5 L (39.0-53.0) % Neutrophils # 11.7 H (1.3-7.7) k/uL Lymphocytes # 0.7 L (1.0-4.8) k/uL APTT 65.9 H 41.6 H (22.0-30.0) sec Sodium (137-145) mmol/L BUN (9-20) mg/dL Creatinine (0.66-1.25) mg/dL Glucose (74-99) mg/dL Assessment and Plan Assessment: Acute severe chest pain, rule out acute coronary syndrome. History of CAD, stent placements 2, and 2017, to the right coronary artery, and left anterior descending coronary artery. Ongoing tobacco use with nicotine addiction. History of hypertension, with hypertensive urgency. History of hyperlipidemia. History of osteoarthritis. History of migraine cephalgia. Plan: Plan dated 04/18/2022. I will add some labetalol, 10-20 mg IV push, every 4 hours, for a systolic blood pressure greater than 160, or a mean pressure greater than 100. The patient will be seen by cardiology later today. We will continue to follow make recommendations along the way. Prognosis is certainly guarded. The patient may be in stool for a repeat cardiac catheterization. Plan dated 04/19/2022. The patient is currently on heparin via weightbase protocol, and was given Knipe ride by cardiology. The patient is feeling a bit better today. He still on O2 at 3 L. Labs, x-rays, and medications are reviewed. We will continue to follow and make recommendations along the way. Prognosis is guarded. Time with Patient: Greater than 30
[2022-04-19 12:33] LABS: Appearance,Urine Cloudy (Clear); Bacteria,Urine Rare /hpf; Bilirubin,Urine Negative (Negative); Blood,Urine Negative (Negative); Color,Urine Yellow; Glucose,Urine (UA) Negative (Negative); Hyaline Casts,Urine 1 /lpf (0-2); Ketones,Urine Negative (Negative); Leukocyte Esterase,Urine Negative (Negative); Mucus,Urine Rare /hpf; Nitrite,Urine Negative (Negative); Protein,Urine Trace (Negative); Specific Gravity,Urine 1.021 (1.001-1.035); Squamous Epithelial Cell,Urine 1 /hpf (0-4); Urobilinogen,Urine <2.0 mg/dL (<2.0); WBC,Urine 1 /hpf (0-5)
--- NOTE | 2022-04-19 13:14 | P.PN ---
Subjective Progress Note Date: 04/19/22 Patient states hes doing much better than yesterday. Nausea has improved. BP improved. Gen: awake, alert HEENT: normocephalic, atraumatic, good hearing acuity, moist mucous membranes Resp: good air exchange, breathing comfortably with no accessory muscle use CVS: good distal perfusion x 4, GI: soft, NTTP, ND : no SPT, no CVAT, lindsey catheter not present MSK: no pitting edema, no clubbing Neuro: non-focal, moving all extremities Psych: cooperative, euthymic mood Assessment/plan: Hypertensive emergency Hypertensive nephrosclerosis Unstable angina Acute Kidney Injury History of CAD -Admit to ICU, telemetry -cardiology, nephrology, and pulmonology consults appreciated -Echo, EF 60-65%, mod LVH -Renal/Bladder US, could not visualize left kidney -continue ASA/statin -continue heparin, but low threshold to suspend given negative trops and non- ischemic EKG -BP control -labetalol 10mg IVP q4h PRN -clonidine 0.3mg TID -amlodipine 10mg daily + 5mg qHS -metoprolol 50mg TID -doxazosin 8mg daily -nipride gtt, wean as able -can consider addition of imdur for additional BP control -Nausea control -zofran PRN -phenergan PRN -PPI Patient is full code DVT PPx is covered with therapeutic heparin Objective - Vital Signs Vital signs: Vital Signs Temp 98.2 F 04/19/22 12:00 Pulse 70 04/19/22 13:00 Resp 16 04/19/22 13:00 BP 131/65 04/19/22 13:00 Pulse Ox 95 04/19/22 13:00 FiO2 36 04/18/22 14:19 Intake & Output 04/18/22 04/19/22 04/19/22 18:59 06:59 18:59 Intake Total 011.239 1431.449 532.478 Output Total 625 300 300 Balance 47.228 1153.449 232.478 Intake: IV 400 840 160 Sodium Chloride 0.9% 1, 400 840 160 000 ml @ 100 mls/hr IV . Q10H [facility] Rx#:[id number] Intake, IV Titration 272.228 613.449 132.478 Amount Heparin Sod,Pork in 0.45% 73.997 157.170 NaCl 25,000 unit In 0.45 % NaCl 1 250ml.bag @ 12 UNITS/KG/HR 9.634 mls/hr IV .Q24H [facility] Rx#: [id number] Nitroglycerin-D5w Pmx 50 54.75 mg In Dextrose/Water 1 250ml.bag @ 5 MCG/MIN 1.5 mls/hr IV .Q24H [facility] Rx#: [id number] Nitroprusside 50 mg In 43.481 456.279 132.478 Dextrose 5% in Water 250 ml @ Titrate IV .Q0M [facility] Rx#:[id number] Sodium Chloride 0.9% 1, 100 000 ml @ 100 mls/hr IV . Q10H [facility] Rx#:[id number] Oral 240 Output: Urine 325 300 300 Emesis 300 Other: Voiding Method Urinal # Voids 1 1 - Labs CBC & Chem 7: 04/19/22 03:21 04/19/22 03:21 Labs: Abnormal Lab Results - Last 24 Hours (Table) 04/18/22 04/18/22 04/19/22 Range/Units 12:23 20:38 03:21 WBC (3.8-10.6) k/uL RBC (4.30-5.90) m/uL Hgb (13.0-17.5) gm/dL Hct (39.0-53.0) % Neutrophils # (1.3-7.7) k/uL Lymphocytes # (1.0-4.8) k/uL APTT 97.1 H 33.8 H (22.0-30.0) sec Sodium 135 L (137-145) mmol/L BUN 59 H (9-20) mg/dL Creatinine 2.28 H (0.66-1.25) mg/dL Glucose 132 H (74-99) mg/dL Urine Protein (Negative) Urine Bacteria (None) /hpf Urine Mucus (None) /hpf 04/19/22 04/19/22 04/19/22 Range/Units 03:21 03:21 05:39 WBC 13.4 H (3.8-10.6) k/uL RBC 4.27 L (4.30-5.90) m/uL Hgb 12.5 L (13.0-17.5) gm/dL Hct 38.5 L (39.0-53.0) % Neutrophils # 11.7 H (1.3-7.7) k/uL Lymphocytes # 0.7 L (1.0-4.8) k/uL APTT 65.9 H 41.6 H (22.0-30.0) sec Sodium (137-145) mmol/L BUN (9-20) mg/dL Creatinine (0.66-1.25) mg/dL Glucose (74-99) mg/dL Urine Protein (Negative) Urine Bacteria (None) /hpf Urine Mucus (None) /hpf 04/19/22 Range/Units 12:10 WBC (3.8-10.6) k/uL RBC (4.30-5.90) m/uL Hgb (13.0-17.5) gm/dL Hct (39.0-53.0) % Neutrophils # (1.3-7.7) k/uL Lymphocytes # (1.0-4.8) k/uL APTT (22.0-30.0) sec Sodium (137-145) mmol/L BUN (9-20) mg/dL Creatinine (0.66-1.25) mg/dL Glucose (74-99) mg/dL Urine Protein Trace H (Negative) Urine Bacteria Rare H (None) /hpf Urine Mucus Rare H (None) /hpf
[2022-04-19] MEDS: ATORVASTATIN 80 MG TAB PO SCH (20:47)
[2022-04-19] MEDS ORDERED: amLODIPine 5 MG TAB PO SCH (21:00)
--- NOTE | 2022-04-20 04:12 | PN ---
PROGRESS NOTE SUBJECTIVE: Mr. Alvarez is in sinus rhythm resting comfortably. He is on 1.6 mcg of Nipride. Blood pressure has improved. I am recommending we wean off the Nipride. I suggested some changes in oral medications, combination of clonidine, amlodipine, and beta fernando, and we will discontinue oral labetalol and see how he does. Troponins are normal. EKG is unremarkable for ischemia. OBJECTIVE: HEART: S1, S2 heard normally. Short systolic murmur. LUNGS: Clear. ABDOMEN: Exam unchanged. LOWER EXTREMITIES: Exam unchanged. MMODL / IJN: [id number] /
[2022-04-20 06:16] LABS: Basophils % (A) 1 %; Eosinophils # (A) 0.4 k/uL (0-0.7); Eosinophils % (A) 6 %; HCT 32.2 % (39.0-53.0); HGB 10.6 gm/dL (13.0-17.5); Lymphocytes % (A) 13 %; MCHC 32.9 g/dL (31.0-37.0); Mean Platelet Volume 7.7; Monocytes # (A) 0.5 k/uL (0-1.0); Monocytes % (A) 7 %; Neutrophils # (A) 5.6 k/uL (1.3-7.7); Neutrophils % (A) 71 %; Platelet Count 175 k/uL (150-450); RBC 3.53 m/uL (4.30-5.90); RDW 12.9 % (11.5-15.5); WBC 7.9 k/uL (3.8-10.6)
[2022-04-20 06:28] LABS: Calcium 8.1 mg/dL (8.4-10.2); Potassium 4.4 mmol/L (3.5-5.1)
[2022-04-20] MEDS: cloNIDine HCL 0.1 MG TAB PO SCH ×3 (08:09→22:37)
[2022-04-20] MEDS: METOPROLOL TARTRATE 50 MG TAB PO SCH ×3 (08:09→22:37)
[2022-04-20] MEDS: DOXAZOSIN 4 MG TAB PO SCH (08:09)
[2022-04-20] MEDS: CHOLECALCIFEROL 25 MCG (1000 IU) TABLET PO SCH (08:09)
[2022-04-20] MEDS: ASPIRIN 81 MG PO SCH (08:09)
[2022-04-20] MEDS: PANTOPRAZOLE 40 MG TABLET PO SCH (08:09)
[2022-04-20] MEDS: HEPARIN SODIUM,PORCINE/PF 5,000 UNIT/0.5 ML SYRINGE SQ SCH ×2 (08:10→20:21)
--- NOTE | 2022-04-20 08:10 | P.PN ---
Subjective Progress Note Date: 04/20/22 Principal diagnosis: Hypertension emergency This is a 57-year-old gentleman with hypertension and dyslipidemia and chronic kidney disease to the hospital with hypertension emergency. Initially he was admitted to the intensive. He continues to be in the intensive care unit where he was started on IV calcium channel fernando and subsequently he was switched into oral medication. An echo was performed and showed evidence of normal left ventricular systolic function with hypertensive heart disease noted was LVH. The patient was seen this morning. He remains asymptomatic. He is hemodynamically stable on the current medical regimen. He is on amlodipine 15 mg by mouth daily which is above the maximum dose and for that reason I'm going to increase the dose to 10 mg by mouth daily. Continue the current dose of beta fernando and clonidine. Monitor the patient for additional 24 hours. The creatinine this morning is 2.5. Nephrology is on the case Objective - Vital Signs Vital signs: Vital Signs Temp 98.1 F 04/20/22 04:00 Pulse 71 04/20/22 07:00 Resp 11 L 04/20/22 07:00 BP 132/74 04/20/22 07:00 Pulse Ox 93 L 04/20/22 07:00 FiO2 36 04/18/22 14:19 Intake & Output 04/19/22 04/20/22 04/20/22 18:59 06:59 18:59 Intake Total 822.478 420 10 Output Total 300 375 0 Balance 522.478 45 10 Weight 81.5 kg Intake: IV 210 120 10 0.9 NaCl- 40 10 Sodium Chloride 0.9% 1, 210 80 000 ml @ 100 mls/hr IV . Q10H [facility] Rx#:[id number] Intake, IV Titration 132.478 Amount Nitroprusside 50 mg In 132.478 Dextrose 5% in Water 250 ml @ Titrate IV .Q0M [facility] Rx#:[id number] Oral 480 300 Output: Urine 300 375 0 Other: Voiding Method Toilet Toilet Urinal # Voids 1 - Constitutional General appearance: Present: no acute distress - Respiratory Respiratory: bilateral: diminished - Cardiovascular Rhythm: regular Abnormal Heart Sounds: Present: systolic murmur - Labs CBC & Chem 7: 04/20/22 05:27 04/20/22 05:27 Labs: Abnormal Lab Results - Last 24 Hours (Table) 10/01/0204/19/22 04/20/22 Range/Units 12:23 12:10 05:27 RBC 3.53 L (4.30-5.90) m/uL Hgb 10.6 L (13.0-17.5) gm/dL Hct 32.2 L (39.0-53.0) % Sodium (137-145) mmol/L BUN (9-20) mg/dL Creatinine (0.66-1.25) mg/dL Calcium (8.4-10.2) mg/dL Renin Direct 336.3 H (3.1 - 57.1) pg/mL Urine Protein Trace H (Negative) Urine Bacteria Rare H (None) /hpf Urine Mucus Rare H (None) /hpf 04/20/22 Range/Units 05:27 RBC (4.30-5.90) m/uL Hgb (13.0-17.5) gm/dL Hct (39.0-53.0) % Sodium 131 L (137-145) mmol/L BUN 69 H (9-20) mg/dL Creatinine 2.78 H (0.66-1.25) mg/dL Calcium 8.1 L (8.4-10.2) mg/dL Renin Direct (3.1 - 57.1) pg/mL Urine Protein (Negative) Urine Bacteria (None) /hpf Urine Mucus (None) /hpf Assessment and Plan Assessment: Assessment Hypertension emergency Progressive heart disease Chronic kidney disease Dyslipidemia Plan Decrease the dose of amlodipine to and milligrams by mouth daily Continue monitor the pressure and heart rate for the next 24 hours Continue monitor the creatinine Follow-up with the patient The patient can be transferred out of the ICU
[2022-04-20] MEDS: amLODIPine 5 MG TAB PO SCH ×2 (09:10→20:21)
--- NOTE | 2022-04-20 09:12 | P.PN ---
Subjective Progress Note Date: 04/20/22 Patient states hes doing well. Still has dyspnea without oxygen. Lifelong smoker since age of 13. Cr worse today. Gen: awake, alert HEENT: normocephalic, atraumatic, good hearing acuity, moist mucous membranes Resp: good air exchange, breathing comfortably with no accessory muscle use CVS: good distal perfusion x 4, GI: soft, NTTP, ND : no SPT, no CVAT, lindsey catheter not present MSK: no pitting edema, no clubbing Neuro: non-focal, moving all extremities Psych: cooperative, euthymic mood Assessment/plan: Hypertensive emergency Hypertensive nephrosclerosis Unstable angina Acute Kidney Injury History of CAD -Admit to ICU, telemetry -cardiology, nephrology, and pulmonology consults appreciated -Echo, EF 60-65%, mod LVH -Renal/Bladder US, could not visualize left kidney -continue ASA/statin -continue heparin, but low threshold to suspend given negative trops and non- ischemic EKG -BP control -labetalol 10mg IVP q4h PRN -clonidine 0.3mg TID -amlodipine 10mg daily -metoprolol 50mg TID -doxazosin 8mg daily -nipride gtt d/c'd -can consider addition of imdur for additional BP control -Nausea control -zofran PRN -phenergan PRN -PPI Patient is full code DVT PPx is covered with therapeutic heparin Objective - Vital Signs Vital signs: Vital Signs Temp 98.1 F 04/20/22 04:00 Pulse 71 04/20/22 07:00 Resp 11 L 04/20/22 07:00 BP 132/74 04/20/22 07:00 Pulse Ox 92 L 04/20/22 08:11 FiO2 36 04/18/22 14:19 Intake & Output 04/19/22 04/20/22 04/20/22 18:59 06:59 18:59 Intake Total 822.478 420 270 Output Total 300 375 0 Balance 522.478 45 270 Weight 81.5 kg Intake: IV 210 120 30 0.9 NaCl- 40 30 Sodium Chloride 0.9% 1, 210 80 000 ml @ 100 mls/hr IV . Q10H [facility] Rx#:[id number] Intake, IV Titration 132.478 Amount Nitroprusside 50 mg In 132.478 Dextrose 5% in Water 250 ml @ Titrate IV .Q0M [facility] Rx#:[id number] Oral 480 300 240 Output: Urine 300 375 0 Other: Voiding Method Toilet Toilet Urinal # Voids 1 - Labs CBC & Chem 7: 04/20/22 05:27 04/20/22 05:27 Labs: Abnormal Lab Results - Last 24 Hours (Table) 04/18/22 04/19/22 04/20/22 Range/Units 12:23 12:10 05:27 RBC 3.53 L (4.30-5.90) m/uL Hgb 10.6 L (13.0-17.5) gm/dL Hct 32.2 L (39.0-53.0) % Sodium (137-145) mmol/L BUN (9-20) mg/dL Creatinine (0.66-1.25) mg/dL Calcium (8.4-10.2) mg/dL Renin Direct 336.3 H (3.1 - 57.1) pg/mL Urine Protein Trace H (Negative) Urine Bacteria Rare H (None) /hpf Urine Mucus Rare H (None) /hpf 04/20/22 Range/Units 05:27 RBC (4.30-5.90) m/uL Hgb (13.0-17.5) gm/dL Hct (39.0-53.0) % Sodium 131 L (137-145) mmol/L BUN 69 H (9-20) mg/dL Creatinine 2.78 H (0.66-1.25) mg/dL Calcium 8.1 L (8.4-10.2) mg/dL Renin Direct (3.1 - 57.1) pg/mL Urine Protein (Negative) Urine Bacteria (None) /hpf Urine Mucus (None) /hpf
--- NOTE | 2022-04-20 09:26 | XR ---
EXAMINATION TYPE: XR chest 1V portable DATE OF EXAM: 04/20/2022 COMPARISON: 04/17/2022 HISTORY: Chest pain TECHNIQUE: Single frontal view of the chest is obtained. FINDINGS: There is been interval development of bibasilar opacities. There is partial airspace opacification in the right lung base suggestive of pneumonia. The left lung base opacity appears to be more likely at electasis. Heart size is normal and the pulmonary vasculature is not congested. The mediastinum and hilum appear normal. The osseous structures are intact. IMPRESSION: Interval development of bibasilar opacities as described above. The findings suggest pneumonia. Clini adilene correlation short-term follow-up to resolution is recommended.
--- NOTE | 2022-04-20 10:30 | P.PN ---
Subjective Progress Note Date: 04/20/22 Principal diagnosis: Chest pain Pulmonary consult dated 04/18/2022. 57-year-old male with a history of CAD, stents 2, back in 2017, ongoing tobacco use, hypertension, and hyperlipidemia. The patient apparently was seen in the emergency department on April 17, coming in with a complaint of chest pain. The patient did take nitroglycerin, which seemed to ease the pain a bit. In addition, the patient was found have an elevated blood pressure, and, was placed on IV nitroglycerin. Because the IV nitroglycerin cannot be titrated on the floor, the patient was admitted to the intensive care unit, on April 18. Currently, he's on 3 L nasal cannula. He's on nitroglycerin at 50 mcg/m, and heparin via weightbase protocol. Cardiology has been consulted. I am going to add some labetalol for his blood pressure management. The stents that were done in 2017, which is the right coronary artery, and the left anterior descending coronary artery. White count 13, hemoglobin 12.8, hematocrit 38.2, and platelet count 3 or 43,000. PTT is 42.8. Sodium 135, potassium 4.9, chlorides 100, CO2 24, BUN 52, and creatinine 2.53. Troponins were less than 0.012, 3. The patient's chest x-ray did not reveal any acute cardiopulmonary process. Progress note dated 04/19/2022. 57-year-old male, seen again in room 252. He was seen in consultation yesterday. He was admitted with chest pain. Currently, he's on 3 L of oxygen. He is getting heparin via weightbase protocol. He was placed on Knipe ride by cardiology, runny 1.6 mcg/kg/m. The patient's getting saline at 10 mL an hour. White count 13.4, hemoglobin 12.5, hematocrit 38.5, and platelet count 204,000. Sodium 135, potassium 4.5, chlorides 101, CO2 22, BUN 59, creatinine 2.28. Most recent PTT is 41.6. Progress note dated 04/20/2022. 57-year-old male, again seen in room 252. He is doing better today. He's only on 3 L of oxygen. He is on saline at 10 mL an hour. Yesterday, he was on nitroprusside, but that has been weaned off. He's not having any chest pain. The blood pressure is much better control. White count 7.9, hemoglobin 10.6, hematocrit 32.2, and platelet count 275,000. Sodium 131, potassium 4.4, chlorides 100, CO2 22, anion gap 9, BUN 69, and creatinine 2.78. Chest x-ray shows some bibasilar opacities. Objective - Vital Signs Vital signs: Vital Signs Temp 97.5 F L 04/20/22 08:00 Pulse 67 04/20/22 10:00 Resp 16 04/20/22 10:00 BP 140/70 04/20/22 10:00 Pulse Ox 91 L 04/20/22 10:00 FiO2 36 04/18/22 14:19 Intake & Output 04/19/22 04/20/22 04/20/22 18:59 06:59 18:59 Intake Total 822.478 420 280 Output Total 300 375 0 Balance 522.478 45 280 Weight 81.5 kg Intake: IV 210 120 40 0.9 NaCl- 40 40 Sodium Chloride 0.9% 1, 210 80 000 ml @ 100 mls/hr IV . Q10H [facility] Rx#:[id number] Intake, IV Titration 132.478 Amount Nitroprusside 50 mg In 132.478 Dextrose 5% in Water 250 ml @ Titrate IV .Q0M [facility] Rx#:[id number] Oral 480 300 240 Output: Urine 300 375 0 Other: Voiding Method Toilet Toilet Toilet Urinal Urinal # Voids 1 - Exam No acute distress, oriented 3. Currently on 3 L of oxygen. HEENT examination is grossly unremarkable. Neck supple. Full range of motion. No adenopathy thyromegaly or neck vein d istention. Cardiovascular examination reveals regular rhythm rate. S1-S2 normal. No S3 or S4. No discernible murmur noted. Heart rate 67 bpm. Lungs reveal scattered bilateral rhonchi. No wheezes. No crackles. Breath sounds equal bilaterally. 3 L saturation is 90 %. Abdomen soft bowel sounds are heard. No masses or tenderness. Extremities are intact. No cyanosis clubbing or edema. Skin is without rash or lesion. Neurologic examination is brief but nonfocal. - Labs CBC & Chem 7: 04/20/22 05:27 04/20/22 05:27 Labs: Abnormal Lab Results - Last 24 Hours (Table) 04/18/22 04/19/22 04/20/22 Range/Units 12:23 12:10 05:27 RBC 3.53 L (4.30-5.90) m/uL Hgb 10.6 L (13.0-17.5) gm/dL Hct 32.2 L (39.0-53.0) % Sodium (137-145) mmol/L BUN (9-20) mg/dL Creatinine (0.66-1.25) mg/dL Calcium (8.4-10.2) mg/dL Renin Direct 336.3 H (3.1 - 57.1) pg/mL Urine Protein Trace H (Negative) Urine Bacteria Rare H (None) /hpf Urine Mucus Rare H (None) /hpf 04/20/22 Range/Units 05:27 RBC (4.30-5.90) m/uL Hgb (13.0-17.5) gm/dL Hct (39.0-53.0) % Sodium 131 L (137-145) mmol/L BUN 69 H (9-20) mg/dL Creatinine 2.78 H (0.66-1.25) mg/dL Calcium 8.1 L (8.4-10.2) mg/dL Renin Direct (3.1 - 57.1) pg/mL Urine Protein (Negative) Urine Bacteria (None) /hpf Urine Mucus (None) /hpf Assessment and Plan Assessment: Acute severe chest pain, rule out acute coronary syndrome. History of CAD, stent placements 2, and 2016, to the right coronary artery, and left anterior descending coronary artery. Ongoing tobacco use with nicotine addiction, with probable COPD. History of hypertension, with hypertensive urgency. History of hyperlipidemia. History of osteoarthritis. History of migraine cephalgia. Plan: Plan dated 04/18/2022. I will add some labetalol, 10-20 mg IV push, every 4 hours, for a systolic blood pressure greater than 160, or a mean pressure greater than 100. The patient will be seen by cardiology later today. We will continue to follow make recommendations along the way. Prognosis is certainly guarded. The patient may be in stool for a repeat cardiac catheterization. Plan dated 04/19/2022. The patient is currently on heparin via weightbase protocol, and was given Knipe ride by cardiology. The patient is feeling a bit better today. He still on O2 at 3 L. Labs, x-rays, and medications are reviewed. We will continue to follow and make recommendations along the way. Prognosis is guarded. Plan dated 04/20/2022. The patient likely has some underlying COPD from ongoing tobacco use and nicotine addiction. The chest x-ray shows some bibasilar opacities, which could be consistent with pneumonia. Labs, x-rays, and medications are reviewed. The patient has been weaned off the nitroprusside. The patient could be transferred to the stepdown unit. Additional recommendations and suggestions are forthcoming. Please see my orders. Time with Patient: Less than 30
[2022-04-20] MEDS ORDERED: IPRATROPIUM-ALBUTEROL 3 ML NEB INHALATION PRN (10:31)
[2022-04-20] MEDS: AZITHROMYCIN 500 MG TAB PO SCH (11:39)
[2022-04-20] MEDS: ACETYLCYSTEINE 800 MG/4 ML VIAL INHALATION SCH ×2 (12:24→20:06)
--- NOTE | 2022-04-20 12:57 | P.PN ---
Subjective Progress Note Date: 04/20/22 Follow-up for acute kidney injury. Currently off nitro drip. Denies nausea vomiting diarrhea. Blood pressures systolic on the monitoring in 100s. Objective - Vital Signs Vital signs: Vital Signs Temp 97.5 F L 04/20/22 08:00 Pulse 66 04/20/22 12:40 Resp 16 04/20/22 10:00 BP 140/70 04/20/22 10:00 Pulse Ox 91 L 04/20/22 10:00 FiO2 36 04/18/22 14:19 Intake & Output 04/19/22 04/20/22 04/20/22 18:59 06:59 18:59 Intake Total 822.478 420 540 Output Total 300 375 0 Balance 522.478 45 540 Weight 81.5 kg Intake: IV 210 120 60 0.9 NaCl- 40 60 Sodium Chloride 0.9% 1, 210 80 000 ml @ 100 mls/hr IV . Q10H [facility] Rx#:[id number] Intake, IV Titration 132.478 Amount Nitroprusside 50 mg In 132.478 Dextrose 5% in Water 250 ml @ Titrate IV .Q0M [facility] Rx#:[id number] Oral 480 300 480 Output: Urine 300 375 0 Other: Voiding Method Toilet Toilet Toilet Urinal Urinal # Voids 1 - Exam No acute distress S1-S2 heard Lungs crackles at the bases No edema - Labs CBC & Chem 7: 04/20/22 05:27 04/20/22 05:27 Labs: Abnormal Lab Results - Last 24 Hours (Table) 04/18/22 04/20/22 04/20/22 Range/Units 12:23 05:27 05:27 RBC 3.53 L (4.30-5.90) m/uL Hgb 10.6 L (13.0-17.5) gm/dL Hct 32.2 L (39.0-53.0) % Sodium 131 L (137-145) mmol/L BUN 69 H (9-20) mg/dL Creatinine 2.78 H (0.66-1.25) mg/dL Calcium 8.1 L (8.4-10.2) mg/dL Renin Direct 336.3 H (3.1 - 57.1) pg/mL Assessment and Plan Assessment: #1 acute kidney injury secondary to hemodynamic ATN with radiation in blood pressures. Creeping creatinine today with episodes of hypotension. #2 CK D stage IIIB with a baseline creatinine of 1.6-1.8 secondary to hypertensive nephropathy #3 chest pains, cardiac workup in process. #4 hyponatremia suspect hypovolemic #5 pneumonia Plan: #1 renal function worse today. Maintain hemodynamics with a systolic blood pressure between 130-140. #2 daily renal labs. Check osmolality in the morning #3 ICU care
[2022-04-20] MEDS: IPRATROPIUM-ALBUTEROL 3 ML NEB INHALATION PRN (20:06)
[2022-04-20] MEDS: SYMBICORT 160-4.5 MCG INHALER INHALATION SCH (20:06)
[2022-04-20] MEDS: ATORVASTATIN 80 MG TAB PO SCH (20:21)
--- NOTE | 2022-04-21 06:37 | P.PN ---
Subjective Progress Note Date: 04/21/22 Principal diagnosis: Hypertension emergency This is a 57-year-old gentleman with hypertension and dyslipidemia and chronic kidney disease to the hospital with hypertension emergency. Initially he was admitted to the intensive. He continues to be in the intensive care unit where he was started on IV calcium channel fernando and subsequently he was switched into oral medication. An echo was performed and showed evidence of normal left ventricular systolic function with hypertensive heart disease noted was LVH. The patient was seen this morning. He remains asymptomatic. He is hemodynamically stable on the current medical regimen. He is on amlodipine 15 mg by mouth daily which is above the maximum dose and for that reason I'm going to increase the dose to 10 mg by mouth daily. Continue the current dose of beta fernando and clonidine. Monitor the patient for additional 24 hours. The creatinine this morning is 2.5. Nephrology is on the case 04/21/2020 The patient was seen this morning. He remains asymptomatic from the cardiac standpoint of view. He remains hemodynamically stable as well. The pressure has been under excellent control on the current medical regimen. Creatinine continues to be stable as well. From the cardiac standpoint of view, we will continue the current medical regimen and follow-up with the patient on when necessary Objective - Vital Signs Vital signs: Vital Signs Temp 99 F 04/21/22 03:41 Pulse 64 04/21/22 03:41 Resp 16 04/21/22 03:41 BP 138/64 04/21/22 03:41 Pulse Ox 91 L 04/21/22 03:41 FiO2 36 04/18/22 14:19 Intake & Output 04/20/22 04/20/22 04/21/22 06:59 18:59 06:59 Intake Total 420 1040 1080 Output Total 375 750 275 Balance 45 290 805 Weight 81.5 kg 80.45 kg Intake: IV 120 80 0.9 NaCl- 40 80 Sodium Chloride 0.9% 1, 80 000 ml @ 100 mls/hr IV . Q10H [facility] Rx#:[id number] Oral [id number] Output: Urine 375 750 275 Other: Voiding Method Toilet Toilet Toilet Urinal Urinal Urinal # Voids 1 - Constitutional General appearance: Present: no acute distress - Respiratory Respiratory: bilateral: CTA - Cardiovascular Rhythm: regular Heart sounds: normal: S1, S2 Abnormal Heart Sounds: Present: systolic murmur - Labs CBC & Chem 7: 04/20/22 05:27 04/20/22 05:27 Assessment and Plan Assessment: Assessment Hypertension emergency Progressive heart disease Chronic kidney disease Dyslipidemia Plan Continue the current medical regimen Follow-up with the patient on when necessary
[2022-04-21] MEDS: PANTOPRAZOLE 40 MG TABLET PO SCH (06:38)
[2022-04-21 07:57] VITALS: TEMP 98.2
[2022-04-21] MEDS: ACETYLCYSTEINE 800 MG/4 ML VIAL INHALATION SCH ×2 (08:03→11:17)
[2022-04-21] MEDS: SYMBICORT 160-4.5 MCG INHALER INHALATION SCH (08:03)
[2022-04-21] MEDS: IPRATROPIUM-ALBUTEROL 3 ML NEB INHALATION PRN ×2 (08:03→11:17)
[2022-04-21] MEDS: METOPROLOL TARTRATE 50 MG TAB PO SCH ×2 (09:08→15:58)
[2022-04-21] MEDS: ASPIRIN 81 MG PO SCH (09:08)
[2022-04-21] MEDS: DOXAZOSIN 4 MG TAB PO SCH (09:08)
[2022-04-21] MEDS: amLODIPine 5 MG TAB PO SCH (09:08)
[2022-04-21] MEDS: cloNIDine HCL 0.1 MG TAB PO SCH ×2 (09:08→15:59)
[2022-04-21] MEDS: AZITHROMYCIN 500 MG TAB PO SCH (09:08)
[2022-04-21] MEDS: CHOLECALCIFEROL 25 MCG (1000 IU) TABLET PO SCH (09:08)
[2022-04-21] MEDS: HEPARIN SODIUM,PORCINE/PF 5,000 UNIT/0.5 ML SYRINGE SQ SCH (09:09)
--- NOTE | 2022-04-21 10:57 | P.PN ---
Subjective Progress Note Date: 04/21/22 Follow-up for acute kidney injury. Transferred out of ICU. Denies nausea vomiting diarrhea. Blood pressures systolic more stable in 130s to 140 systolic. Wants to go home. Objective - Vital Signs Vital signs: Vital Signs Temp 98.2 F 04/21/22 07:56 Pulse 78 04/21/22 08:16 Resp 16 04/21/22 07:56 BP 169/74 04/21/22 07:56 Pulse Ox 91 L 04/21/22 08:03 FiO2 36 04/18/22 14:19 Intake & Output 04/20/22 04/21/22 04/21/22 18:59 06:59 18:59 Intake Total 1040 1080 Output Total 750 275 400 Balance 290 805 -400 Weight 80.45 kg Intake: IV 80 0.9 NaCl- 80 Oral 960 1080 Output: Urine 750 275 400 Other: Voiding Method Toilet Toilet Toilet Urinal Urinal Urinal # Voids 1 1 - Exam No acute distress S1-S2 heard Lungs crackles at the bases No edema - Labs CBC & Chem 7: 04/20/22 05:27 04/20/22 05:27 Assessment and Plan Assessment: #1 acute kidney injury secondary to hemodynamic ATN with radiation in blood pressures. Creeping creatinine today with episodes of hypotension. #2 CK D stage IIIB with a baseline creatinine of 1.6-1.8 secondary to hypertensive nephropathy #3 chest pains, cardiac workup in process. #4 hyponatremia iso-osmolar. #5 pneumonia Plan: #1 renal function worsening. Anticipate to stabilize with improvement in blood pressure. #2 daily renal labs. #3 avoid nephrotoxic agents and hypotensive episodes.
[2022-04-21 11:34] VITALS: RESP 15
--- NOTE | 2022-04-21 12:24 | P.PN ---
Subjective Progress Note Date: 04/21/22 Principal diagnosis: Chest pain Pulmonary consult dated 04/18/2022. 57-year-old male with a history of CAD, stents 2, back in 2017, ongoing tobacco use, hypertension, and hyperlipidemia. The patient apparently was seen in the emergency department on April 17, coming in with a complaint of chest pain. The patient did take nitroglycerin, which seemed to ease the pain a bit. In addition, the patient was found have an elevated blood pressure, and, was placed on IV nitroglycerin. Because the IV nitroglycerin cannot be titrated on the floor, the patient was admitted to the intensive care unit, on April 18. Currently, he's on 3 L nasal cannula. He's on nitroglycerin at 50 mcg/m, and heparin via weightbase protocol. Cardiology has been consulted. I am going to add some labetalol for his blood pressure management. The stents that were done in 2017, which is the right coronary artery, and the left anterior descending coronary artery. White count 13, hemoglobin 12.8, hematocrit 38.2, and platelet count 3 or 43,000. PTT is 42.8. Sodium 135, potassium 4.9, chlorides 100, CO2 24, BUN 52, and creatinine 2.53. Troponins were less than 0.012, 3. The patient's chest x-ray did not reveal any acute cardiopulmonary process. Progress note dated 04/19/2022. 57-year-old male, seen again in room 252. He was seen in consultation yesterday. He was admitted with chest pain. Currently, he's on 3 L of oxygen. He is getting heparin via weightbase protocol. He was placed on Knipe ride by cardiology, runny 1.6 mcg/kg/m. The patient's getting saline at 10 mL an hour. White count 13.4, hemoglobin 12.5, hematocrit 38.5, and platelet count 204,000. Sodium 135, potassium 4.5, chlorides 101, CO2 22, BUN 59, creatinine 2.28. Most recent PTT is 41.6. Progress note dated 04/20/2022. 57-year-old male, again seen in room 252. He is doing better today. He's only on 3 L of oxygen. He is on saline at 10 mL an hour. Yesterday, he was on nitroprusside, but that has been weaned off. He's not having any chest pain. The blood pressure is much better control. White count 7.9, hemoglobin 10.6, hematocrit 32.2, and platelet count 275,000. Sodium 131, potassium 4.4, chlorides 100, CO2 22, anion gap 9, BUN 69, and creatinine 2.78. Chest x-ray shows some bibasilar opacities. Progress note dated 04/21/2022. 57-year-old male seen today in room 364. Yesterday, he was in the intensive care unit. Currently, he's on room air. He is not requiring any IV fluids. His blood pressures much better control. For suspected COPD exacerbation, we added duo nebs, Symbicort and Zithromax. Clinically, he is feeling much better. No new labs today. Chest x-ray from April 20 was reviewed already. Room air saturation is 93%. Objective - Vital Signs Vital signs: Vital Signs Temp 98.2 F 04/21/22 07:56 Pulse 69 04/21/22 11:34 Resp 15 04/21/22 11:34 BP 164/73 04/21/22 11:34 Pulse Ox 91 L 04/21/22 11:34 FiO2 36 04/18/22 14:19 Intake & Output 04/20/22 04/21/22 04/21/22 18:59 06:59 18:59 Intake Total 1040 1080 Output Total 750 275 400 Balance 290 805 -400 Weight 80.45 kg Intake: IV 80 0.9 NaCl- 80 Oral 960 1080 Output: Urine 750 275 400 Other: Voiding Method Toilet Toilet Toilet Urinal Urinal Urinal # Voids 1 1 - Exam No acute distress, oriented 3. Currently on room air, with saturations of 92%. HEENT examination is grossly unremarkable. Neck supple. Full range of motion. No adenopathy thyromegaly or neck vein distention. Cardiovascular examination reveals regular rhythm rate. S1-S2 normal. No S3 or S4. No discernible murmur noted. Heart rate 85 bpm. Lungs reveal scattered bilateral rhonchi. No wheezes. No crackles. Breath sounds equal bilaterally. Room air saturation is 92%. Breath sounds today are improved. Abdomen soft bowel sounds are heard. No masses or tenderness. Extremities are intact. No cyanosis clubbing or edema. Skin is without rash or lesion. Neurologic examination is brief but nonfocal. - Labs CBC & Chem 7: 04/20/22 05:27 04/20/22 05:27 Assessment and Plan Assessment: Acute severe chest pain, rule out acute coronary syndrome. History of CAD, stent placements 2, in 2017, to the right coronary artery, and left anterior descending coronary artery. Ongoing tobacco use with nicotine addiction, with probable COPD. History of hypertension, with hypertensive urgency. History of hyperlipidemia. History of osteoarthritis. History of migraine cephalgia. Plan: Plan dated 04/18/2022. I will add some labetalol, 10-20 mg IV push, every 4 hours, for a systolic blood pressure greater than 160, or a mean pressure greater than 100. The patient will be seen by cardiology later today. We will continue to follow make recommendations along the way. Prognosis is certainly guarded. The patient may be in stool for a repeat cardiac catheterization. Plan dated 04/19/2022. The patient is currently on heparin via weightbase protocol, and was given Knipe ride by cardiology. The patient is feeling a bit better today. He still on O2 at 3 L. Labs, x-rays, and medications are reviewed. We will continue to follow and make recommendations along the way. Prognosis is guarded. Plan dated 04/20/2022. The patient likely has some underlying COPD from ongoing tobacco use and nicotine addiction. The chest x-ray shows some bibasilar opacities, which could be consistent with pneumonia. Labs, x-rays, and medications are reviewed. The patient has been weaned off the nitroprusside. The patient could be transferred to the stepdown unit. Additional recommendations and suggestions are forthcoming. Please see my orders. Plan dated 04/21/2022. The patient may have some underlying COPD. Yesterday, we added Symbicort, albuterol sulfate and ipratropium bromide, and some azithromycin. The patient has been weaned off of oxygen. He is feeling much better. His blood pressure is under better control. We will continue to follow the patient and make ashly mmendations along the way. The patient should have follow-up in our office, with complete pulmonary function testing. Additional recommendations and suggestions are forthcoming. Time with Patient: Less than 30
[2022-04-21 14:21] LABS: Calcium 8.4 mg/dL (8.4-10.2); Potassium 3.9 mmol/L (3.5-5.1)
[2022-04-21 15:58] VITALS: BP 164/69; PULSE 79
--- NOTE | 2022-04-21 17:24 | P.DS ---
Providers Date of admission: 04/17/22 23:40 Expected date of discharge: 04/21/22 Attending physician: Cherelle Zuleta MD Consults: 04/17/22 23:40 Consult Physician Urgent Consulting Provider: Hector De La Cruz Consult Reason/Comments: chest pain Do you want consulting provider notified?: Yes 04/18/22 02:04 Consult Physician Stat Consulting Provider: Cherelle Zuleta Consult Reason/Comments: hypertensive crisis Do you want consulting provider notified?: Already Contacted 04/18/22 02:13 Consult Physician Routine Consulting Provider: Errol Fuentes Consult Reason/Comments: hypertensive emergency Do you want consulting provider notified?: Already Contacted 04/18/22 02:20 Consult Physician Routine Consulting Provider: Liana Villarreal Consult Reason/Comments: refractory hypertension Do you want consulting provider notified?: Yes, Notify in am Primary care physician: [facility] Course: Hypertensive emergency Hypertensive nephrosclerosis Unstable angina Acute Kidney Injury History of CAD 57 year old male with refractroy hypertension , CAD s/p stents 2017 presented for sudden onset restrosternal chest pain , radiating to the back , with difficulty in breathing. In the ED , EKG was normal except for sinus saud. no acute ST changes. trops negative, CXR normal. He was initiated on heparin drip in the ED, and given aspirin and nitro paste. Patient noted to be in hypertensive emergency in the ER, and was admitted to ICU for blood pressure management. He was started on a nitro gtt, and had blood pressure medications t itrated off for his Acute Kidney Injury and added for hypertensive emergency. Cardiology, pulmonology, and nephrology consulted on the case and their recommendations were appreciated. Workup was done for secondary causes of hypertension. Echocardiogram was normal. Renal/bladder ultrasound could not identify left kidney, but right kidney was normal. Metanephrines, renin, aldosterone were pending at the time of discharge. Patient's blood pressures stabilized and he was taken off of the drip. He was also noted to have hypoxemic respiratory failure in the context of having an extensive smoking history since the age of 13. He improved back to room air and on discharge was recommended to see pulmonology to have workup for COPD. His Cr was improving on day of discharge given stabilized BPs. He will see nephrology in follow up. Pt will f/u with PCP. I spent 45 minutes coordinating this complex discharge, discharge date 04/21. Gen: awake, alert HEENT: normocephalic, atraumatic, good hearing acuity, moist mucous membranes Resp: good air exchange, breathing comfortably with no accessory muscle use CVS: good distal perfusion x 4, GI: soft, NTTP, ND : no SPT, no CVAT, lindsey catheter not present MSK: no pitting edema, no clubbing Neuro: non-focal, moving all extremities Psych: cooperative, euthymic mood Patient Condition at Discharge: Good Plan - Discharge Summary New Discharge Prescriptions: New Doxazosin [Cardura] 8 mg PO DAILY #30 tab Metoprolol Tartrate [Lopressor] 50 mg PO TID #90 tab amLODIPine [Norvasc] 5 mg PO BID #60 tab Budesonide-Formot 160-4.5 Mcg [Symbicort 160-4.5 Mcg Inhaler] 2 puff INHALATION RT-BID #1 each Azithromycin [Zithromax] 500 mg PO DAILY #1 tab Pantoprazole [Protonix] 40 mg PO AC-BRKFST #30 tab Continue Aspirin 81 mg PO DAILY #30 Atorvastatin [Lipitor] 80 mg PO HS Cholecalciferol [Vitamin D3 (25 Mcg = 1000 Iu)] 50 mcg PO DAILY cloNIDine HCL [Catapres] 0.3 mg PO TID Nitroglycerin Sl Tabs [Nitrostat] 0.4 mg SUBLINGUAL Q5M PRN PRN Reason: Chest Pain Discontinued hydroCHLOROthiazide 25 mg PO DAILY Losartan [Cozaar] 100 mg PO DAILY 30 Days #60 tab Metoprolol Tartrate [Lopressor] 100 mg PO BID Discharge Medication List Aspirin 81 mg PO DAILY #30 12/15/16 [Rx] Atorvastatin [Lipitor] 80 mg PO HS 12/31/16 [History] Cholecalciferol [Vitamin D3 (25 Mcg = 1000 Iu)] 50 mcg PO DAILY 07/03/21 [History] cloNIDine HCL [Catapres] 0.3 mg PO TID 07/03/21 [History] Nitroglycerin Sl Tabs [Nitrostat] 0.4 mg SUBLINGUAL Q5M PRN 04/18/22 [History] Azithromycin [Zithromax] 500 mg PO DAILY #1 tab 04/21/22 [Rx] Budesonide-Formot 160-4.5 Mcg [Symbicort 160-4.5 Mcg Inhaler] 2 puff INHALATION RT-BID #1 each 04/21/22 [Rx] Doxazosin [Cardura] 8 mg PO DAILY #30 tab 04/21/22 [Rx] Metoprolol Tartrate [Lopressor] 50 mg PO TID #90 tab 04/21/22 [Rx] Pantoprazole [Protonix] 40 mg PO AC-BRKFST #30 tab 04/21/22 [Rx] amLODIPine [Norvasc] 5 mg PO BID #60 tab 04/21/22 [Rx] Follow up Appointment(s)/Referral(s): Liana Villarreal MD [STAFF PHYSICIAN] - 2 Weeks Dominic Canseco MD [REFERRING] - 1-2 days Errol Fuentes DO [Doctor of Osteopathic Medicine] - 2 Weeks (for evaluation for COPD) Patient Instructions/Handouts: Chest Pain (ED), How to Stop Smoking (ED), Acute Kidney Injury (DC), Hypertensive Crisis (DC) Discharge Disposition: HOME SELF-CARE
--- NOTE | 2022-04-24 12:24 | CDI ---
Documentation Clarification Form Date: 04/24/2022 12:02:00 PM From: Samantha Rader Admit Date: 04/17/2022 11:40:00 PM Patient Name: Elpidio Alvarez Visit Number: [id number] Discharge Date: 04/21/2022 04:18:00 PM ATTENTION: The Clinical Documentation Specialists (CDI) and [facility] Coding Staff appreciate your assistance in clarifying documentation. Please respond to the clarification below the line at the bottom and electronically sign. The CDI & [facility] Coding staff will review the response and follow-up if needed. Please note: Queries are made part of the Legal Health Record. If you have any questions, please contact the author of this message via ITS. Dr. Ephraim Cabrera Per DCS "He was also noted to have hypoxemic respiratory failure in the context of having and extensive smoking history since the age of 13. Based on this information and the findings below, is the hypoxic respiratory failure acute, chronic, or acute and chronic. Please clarify acuity. History/Risk Factors: Patient with COPD, smoker since age 13. Patient with O2 sat of 88% RA on 04/20. 04/19 Respiratory rate 28 and then down to 9. Tobacco use: since age 13 Clinical Indicators: Vital signs: on admit 97.9F, 51 BPM, 18, 230/109, 95% RA down to 88% on RA on 04/20 Treatment: Nasal Canula up to 4L, pulmonary consult Please clarify the acuity of the respiratory failure: [x] Acute Hypoxic Respiratory Failure (pO2 <60 mm Hg or SpO2 <91% on room air) [ ] Acute Hypercapnic Respiratory Failure (pCO2 >50 and pH <7.35) [ ] Acute on Chronic Respiratory Failure [ ] Chronic Respiratory Failure [ ] Other Diagnosis, please specify [ ] Unable to determine MTDD
== END 2022-04-21 16:18 | disposition home or self-care (01) | DRG 304 ==
LOC: EC 21:32 → 3SCARD 23:40 → 2SICU 04-18 00:57 → 3SCARD 04-20 18:45
PROVIDERS: ADMIT Internal Medicine; ATTEND Internal Medicine
DX: I16.1 Hypertensive emergency (principal); J96.01 Acute respiratory failure with hypoxia; N17.0 Acute kidney failure with tubular necrosis; I25.110 Atherosclerotic heart disease of native coronary artery with unstable angina pectoris; E87.1 Hypo-osmolality and hyponatremia; M54.30 Sciatica, unspecified side; M19.90 Unspecified osteoarthritis, unspecified site; E78.5 Hyperlipidemia, unspecified; R00.1 Bradycardia, unspecified; Z71.6 Tobacco abuse counseling; F17.210 Nicotine dependence, cigarettes, uncomplicated; I13.10 Hypertensive heart and chronic kidney disease without heart failure, with stage 1 through stage 4 chronic kidney disease, or unspecified chronic kidney disease; J44.9 Chronic obstructive pulmonary disease, unspecified; N18.30 Chronic kidney disease, stage 3 unspecified; Z79.82 Long term (current) use of aspirin; Z79.899 Other long term (current) drug therapy; Z82.49 Family history of ischemic heart disease and other diseases of the circulatory system; Z95.5 Presence of coronary angioplasty implant and graft; Z28.311 Partially vaccinated for COVID-19; Z28.21 Immunization not carried out because of patient refusal; Z88.8 Allergy status to other drugs, medicaments and biological substances
CPT/HCPCS: 36415; 71045; 71046; 76770; 80048; 80053; 80061; 81001; 82088; 83735; 83835; 83880; 83930; 84244; 84443; 84484; 85025; 85610; 85730; 93005; 93306; 94640; 94667; 94760; 96365; 96366; 96368; 96375; 96376; 99291

== ENCOUNTER → 2022-05-09 | Outpatient (CLI) | payer BC | END | disposition home or self-care (01) | LOC: LABWHC1 10:29 | PROVIDERS: ATTEND Internal Medicine Interventional Cardiology | DX: I10 Essential (primary) hypertension (principal); C7A.094 Malignant carcinoid tumor of the foregut, unspecified | CPT/HCPCS: 36415; 86316 ==

== ENCOUNTER → 2022-07-29 | Outpatient (CLI) | payer BC ==
--- NOTE | 2022-07-29 10:07 | XR ---
EXAMINATION TYPE: XR chest 2V DATE OF EXAM: 07/29/2022 COMPARISON: 05/13/2022 TECHNIQUE: PA and lateral views submitted. HISTORY: Cough FINDINGS: Elevated left hemidiaphragm with linear changes at the left lung base. There is thoracic aortic stent ing. No overt failure or pneumothorax. IMPRESSION: 1. Postsurgical changes with left lower lobe atelectasis scarring.
== END | disposition home or self-care (01) ==
LOC: RADXRYALE 09:38
PROVIDERS: ATTEND Family Medicine
DX: J98.11 Atelectasis (principal); J98.4 Other disorders of lung; R06.02 Shortness of breath; R05.1 Acute cough
CPT/HCPCS: 71046